=== PATIENT | male | born 1940 | race African-American/Black ===

== ENCOUNTER 2018-08-04 12:17 | Emergency (ER) | payer OTHER ==
[2018-08-04 13:11] VITALS: BP 131/64; PULSE 60; TEMP 98.9; BMI 33.9
--- NOTE | 2018-08-04 13:44 | PDOC ---
History of Present Illness - General Chief Complaint: Blood Pressure Problem Stated Complaint: BLOOD PRESSURE Time Seen by Provider: 08/04/18 13:21 History Source: Patient Exam Limitations: No Limitations (BP check) - History of Present Illness Associated Symptoms: denies: chest pain, cough, diaphoresis, fever/chills, headaches, loss of appetite, malaise, nausea/vomiting, rash, shortness of breath , syncope, weakness Past History - Travel Traveled outside of the country in the last 30 days: No Close contact w/someone who was outside of country & ill: No - Past Medical History Allergies/Adverse Reactions: Allergies Allergy/AdvReac Type Severity Reaction Status Date / Time No Known Allergies Allergy Verified 08/04/18 13:07 Home Medications: Ambulatory Orders Diltiazem HCl [Cartia Xt] 120 mg PO DAILY 04/26/12 Hydrochlorothiazide [Hctz] 25 mg PO DAILY 04/26/12 Rosuvastatin Calcium [Crestor] 20 mg PO DAILY 04/26/12 Cholecalciferol (Vitamin D3) [Vitamin D3] 1 cap PO DAILY 05/04/18 Metoprolol Succinate 1 tab PO DAILY 05/04/18 Silodosin [Rapaflo] 1 cap PO DAILY 05/04/18 metFORMIN HCL [Metformin HCl] 500 mg PO ASDIR 08/04/18 Anemia: No Asthma: No Cancer: No Cardiac Disorders: No CVA: No COPD: No CHF: No Dementia: No Diabetes: Yes GI Disorders: No Disorders: No HTN: Yes Hypercholesterolemia: Yes Liver Disease: No Seizures: No Thyroid Disease: No - Surgical History Abdominal Surgery: No Appendectomy: No Cardiac Surgery: No Cholecystectomy: No Lung Surgery: No Neurologic Surgery: No Orthopedic Surgery: Yes (LEFT CARPLE TUNNEL) - Suicide/Smoking/Psychosocial Hx Smoking History: Never smoked Have you smoked in the past 12 months: No 'Breaking Loose' booklet given: 04/26/07 Hx Alcohol Use: No Drug/Substance Use Hx: No Substance Use Type: Alcohol Hx Substance Use Treatment: No Review of Systems - Review of Systems Able to Perform ROS?: No Is the patient limited Amharic proficient: No Constitutional: No: Chills HEENTM: No: Blurred Vision, Ear Discharge, Nose Congestion, Hearing Loss, Throat Swelling, Dental Problems, Difficulty Swallowing, Mouth Swelling Respiratory: No: Orthopnea, Shortness of Breath, Wheezing, Productive cough Cardiac (ROS): No: Chest Pain, Edema, Irregular Heart Rate, Lightheadedness, Palpitations, Syncope ABD/GI: No: Abdominal Distended, Blood Streaked Bowels, Constipated, Diarrhea, Difficulty Swallowing Musculoskeletal: No: Back Pain, Joint Pain, Neck Pain Integumentary: No: Bruising, Dryness, Erythema Neurological: No: Headache, Numbness, Paresthesia Endocrine: No: Excessive Sweating, Flushing Hematologic/Lymphatic: No: Anemia, Blood Clots, Bleeding Diathesis *Physical Exam - Vital Signs Last Vital Signs Temp Pulse Resp BP Pulse Ox 98.9 F 60 20 131/64 99 08/04/18 13:07 08/04/18 13:07 08/04/18 13:07 08/04/18 13:07 08/04/18 13:07 - Physical Exam General Appearance: Yes: Nourished HEENT: positive: EOMI, BERNARD, Normal ENT Inspection, TMs Normal, Pharynx Normal Neck: positive: Supple Respiratory/Chest: positive: Lungs Clear, Normal Breath Sounds Cardiovascular: positive: Regular Rhythm, Regular Rate, S1, S2 Gastrointestinal/Abdominal: positive: Normal Bowel Sounds Musculoskeletal: positive: Normal Inspection Extremity: positive: Normal Capillary Refill Integumentary: positive: Normal Color Neurologic: positive: gauge checker II-XII NML intact, Fully Oriented, Alert Medical Decision Making - Medical Decision Making 08/04/18 13:39 78y/o M with h/o HTN presetns for elevated BP check, states he went to [facility] for BP check and BP was noted 161/88. He admits compliants with meds. He denies CP, SOB, WEST, dizziness, palpitation, LE edema. Pt admits to eating alot of fast foods because his is ill and is unable to cook Plan : BP ok in ED, non focal neuro exam vss stable in ED pt advised to refrain from fast food keep BP log and f/u with PCP if BP is high 08/04/18 17:48 *DC/Admit/Observation/Transfer Diagnosis at time of Disposition: Hypertension Qualifiers: Hypertension type: essential hypertension Qualified Code(s): I10 - Essential ( primary) hypertension - Discharge Dispostion Disposition: HOME Condition at time of disposition: Stable Decision to Admit order: No - Referrals Referrals: Giovanny Fletcher MD [Primary Care Provider] - 3 days (BP check) - Patient Instructions Printed Discharge Instructions: DI for High Blood Pressure, How to Monitor Your Blood Pressure at Home Additional Instructions: Stop eating fast food because it has high salt I discussed the physical exam findings, ancillary test results and final diagnoses with the patient. I answered all of the patient's questions. The patient was satisfied with the care received and felt comfortable with the discharge plan and treatment plan. The patient will call their primary care physician within 24 hours to arrange follow-up and will return to the Emergency Department with any new, persistant or worsening symptoms. - Post Discharge Activity
== END 2018-08-04 13:49 | disposition home or self-care (01) ==
LOC: JERFT 12:17 → JER 12:17 → JERFT 13:49
DX: I10 Essential (primary) hypertension (principal); E11.9 Type 2 diabetes mellitus without complications; Z79.84 Long term (current) use of oral hypoglycemic drugs; E78.00 Pure hypercholesterolemia, unspecified
CPT/HCPCS: 99281-25

== ENCOUNTER → 2019-07-18 | Day surgery (SDC) | payer OTHER, MEDICARE ==
--- NOTE | 2019-07-19 17:43 | PATH ---
Cytology Non-Gynecological Report Patient Name: JOEY LACY [facility]. Rec. #: [id number] /Age/Gender: 1940 (Age: 79) / M Account: [id number] Location: RADIOLOGY INTER Taken: 07/18/2019 Received: 07/18/2019 Reported: 07/19/2019 Physicians: Paulette Craven M.D. Specimen(s) Received THYROID RIGHT LOBE Clinical History Right thyroid nodule, 3.29 x 2.5 x 2.03 Final Diagnosis THYROID, RIGHT LOBE, FINE NEEDLE ASPIRATION: SATISFACTORY FOR EVALUATION. BETHESDA CLASS II: BENIGN. CYTOLOGIC FINDINGS ARE CONSISTENT WITH A BENIGN FOLLICULAR NODULE. SMALL FOLLICULAR CELLS IN HEMORRHAGIC BACKGROUND. Electronically Signed Beena Mohan M.D. Gross Description Received are eight direct smears, four of which are air-dried and Diff-Quik stained, and four of which are alcohol fixed and Pap stained. Also received is 20 ml of bloody formalin from which one cellblock is prepared.
== END | disposition home or self-care (01) ==
LOC: JRADIR 09:24
PROVIDERS: ATTEND Internal Medicine Endocrinology, Diabetes & Metabolism
PROC: 0G9H3ZX Drainage of Right Thyroid Gland Lobe, Percutaneous Approach, Diagnostic (ICD-10-PCS; principal; 2019-07-18)
DX: E04.1 Nontoxic single thyroid nodule (principal)
CPT/HCPCS: 76942; 88173; 88305-TC

== ENCOUNTER → 2019-07-29 | Day surgery (SDC) | payer OTHER, MEDICARE ==
--- NOTE | 2019-07-31 12:19 | PATH ---
Cytology Non-Gynecological Report Patient Name: JOEY LACY Med. Rec. #: [id number] /Age/Gender: 1940 (Age: 79) / M Account: [id number] Location: RADIOLOGY INTER Taken: 07/29/2019 Received: 07/29/2019 Reported: 07/31/2019 Physicians: Paulette Craven M.D. Specimen(s) Received LEFT THYROID FNA Clinical History Thyroid nodule Final Diagnosis THYROID, LEFT, FINE NEEDLE ASPIRATION: SATISFACTORY FOR EVALUATION BETHESDA CLASS II: BENIGN SMALL FOLLICULAR CELLS AND SOME COLLOID PRESENT, IN A BACKGROUND OF SMALL LYMPHOCYTES. Comment: The presence of lymphocytes raises the possibility of chronic lymphocytic thyroiditis. Suggest clinical correlation. Electronically Signed Nas Ramos M.D. Gross Description Received are eight direct smears, four of which are air-dried and Diff-Quik stained, and four of which are alcohol fixed and Pap stained. Also received is 20 ml of bloody formalin from which one cellblock is prepared.
== END ==
LOC: JRADIR 09:58
PROVIDERS: ATTEND Internal Medicine Endocrinology, Diabetes & Metabolism
DX: E04.1 Nontoxic single thyroid nodule (principal)
CPT/HCPCS: 76942; 88173; 88305-TC

== ENCOUNTER 2020-01-16 08:52 | Inpatient (IN) | payer OTHER, MEDICARE ==
--- NOTE | 2020-01-16 09:33 | PDOC ---
History of Present Illness - General Chief Complaint: Shortness of Breath Stated Complaint: HIGH BLOOD SUGAR Time Seen by Provider: 01/16/20 09:33 History Source: Patient Exam Limitations: No Limitations - History of Present Illness Initial Comments: 79-year-old female with past medical history of hypertension, hyperlipidemia, NIDDM, thyroid disorder presenting for chest pain occurring since 729 this morning he reported that he awoke feeling like a pressure on his chest that is constant and he took his blood sugar and it was 336 he reported that has never been higher than that so he came to the ED. Pt reported he had a left knee steroid injection x3 weeks ago, a left knee gel injection x1 week ago and x2 weeks ago. Pt reported he has taken too much of his medication on accident before, and does not know if he has now but says it is a possibility. ROS General: denied fever, chills, generalized weakness. HEENT: denied sore throat, rhinorrhea, ear pain. Cardiovascular: admitted to chest pain. denied palpitations, syncope, diaphoresis. Respiratory: denied shortness of breath, cough, sputum production, hemoptysis. Gastrointestinal: denied abdominal pain, nausea, vomiting, diarrhea, constipation, blood in stool. Genitourinary: denied dysuria, increased urinary frequency, hematuria, urinary incontinence, flank pain. Back: denied back pain. Musculoskeletal: denied joint pain, muscle pain, joint swelling. Neurological: denied headache, dizziness, numbness, tingling, weakness. Integumentary: denied rash, laceration, abrasion. Hematologic/Lymphatic: denied bruising or bleeding. PE Constitutional: Well-nourished, Well-developed, appearing stated age. HEENT: head is normocephalic, atraumatic. EOMI. PERRLA. Neck: supple. Full ROM. Cardiovascular: irregularly irregular heart rhythm. Normal S1 and S2. no murmurs. no pericardial friction rub. Respiratory: clear to auscultation bilaterally. no crackles, rhonchi or wheezing. no stridor. Gastrointestinal: soft, flat, nontender. normal bowel sounds. no rebound, guarding, or masses. Extremities: peripheral pulses intact and equal. no lower extremity edema noted. Neurological: CN 2-12 grossly intact. moves all four extremities. Psych: awake, alert, oriented x3. follows commands. answers questions appro priately. Past History - Past Medical History Allergies/Adverse Reactions: Allergies Allergy/AdvReac Type Severity Reaction Status Date / Time No Known Allergies Allergy Verified 08/04/18 13:07 Home Medications: Ambulatory Orders Diltiazem HCl [Cartia Xt] 120 mg PO DAILY 04/26/12 Hydrochlorothiazide [Hctz] 25 mg PO DAILY 04/26/12 Rosuvastatin Calcium [Crestor] 20 mg PO DAILY 04/26/12 Silodosin [Rapaflo] 1 cap PO DAILY 05/04/18 metFORMIN HCL [Metformin HCl] 2 tab PO DAILY 08/04/18 Aspirin 81 mg PO DAILY 01/16/20 Atenolol [Tenormin -] 50 mg PO DAILY 01/16/20 Diclofenac Sodium 2 mg PO PRN 01/16/20 - Immunization History Immunization Up to Date: No - Psycho Social/Smoking Cessation Hx Smoking History: Never smoked Have you smoked in the past 12 months: No Information on smoking cessation initiated: No 'Breaking Loose' booklet given: 04/26/07 Hx Alcohol Use: Yes Drug/Substance Use Hx: No Substance Use Type: Alcohol Hx Substance Use Treatment: No *Physical Exam - Vital Signs Last Vital Signs Temp Pulse Resp BP Pulse Ox 97.6 F 58 L 16 130/70 92 L 01/16/20 09:00 01/16/20 09:00 01/16/20 09:00 01/16/20 09:00 01/16/20 09:00 ED Treatment Course - LABORATORY CBC & Chemistry Diagram: 01/16/20 09:30 01/16/20 09:30 - RADIOLOGY Radiology Studies Ordered: Category Date Time Status CHEST X-RAY PORTABLE* [RAD] Stat Radiology 01/16/20 09:28 Ordered Medical Decision Making - Medical Decision Making 79 year old male with above PMH presented to ED for chest pressure and hyperglycemia. Initial Vital Signs Temp Pulse Resp BP Pulse Ox 97.6 F 58 L 16 130/70 92 L 01/16/20 09:00 01/16/20 09:00 01/16/20 09:00 01/16/20 09:00 01/16/20 09:00 Afebrile. Bradycardic. No tachypnea. Mild hypertension. No hypotension. Pt is 96% [place] [address]: rate 61, irregularly irregular rhythm, normal axis, normal intervals, no acute ST changes. Labs ordered: CBC, CMP, troponin, TSH, VBG, BNP, UA/UC Imaging ordered: CXR Medications ordered: normal saline bolus 1000 cc once, ASA 162 mg PO chew once CXR report: Kurt Leroy Name: JOEY LACY DEPARTMENT OF RADIOLOGY Phys: Maria E Caban RESIDENT : 1940 Age: 79 Sex: M [facility] Acct: [id number] Loc: [address] Exam Date: 01/16/20 Status: REG [place]Y [place] [id number] Unit Number: [id number] ACCESSION #: [id number] EXAM#: TYPE/EXAM: RESULT: [id number] RAD/CHEST X-RAY PORTABLE* Chest: Hyperglycemia. Chest pain Single view of the chest is submitted. There are clear lungs, normal mediastinum and sharp angles. The bones and soft tissues are intact. Acute process is not. 09/02/2019 there is no change of an adverse nature. Impression: No acute chest pathology Reported By: Raheel Cao MD 01/16/20 0942 01/16/20 10:40 01/16/20 10:56 Laboratory Last Values WBC 17.9 K/mm3 (4.0-10.0) H 01/16/20 09:30 RBC 5.91 M/mm3 (4.00-5.60) H 01/16/20 09:30 Hgb 16.1 GM/dL (11.7-16.9) 01/16/20 09:30 Hct 48.7 % (35.4-49) 01/16/20 09:30 MCV 82.4 fl (80-96) 01/16/20 09:30 MCH 27.3 pg (25.7-33.7) 01/16/20 09:30 MCHC 33.1 g/dl (32.0-35.9) 01/16/20 09:30 RDW 14.4 % (11.9-15.9) 01/16/20 09:30 Plt Count 325 K/MM3 (134-434) 01/16/20 09:30 MPV 8.6 fl (7.5-11.1) 01/16/20 09:30 Absolute Neuts (auto) 14.3 K/mm3 (1.5-8.0) H 01/16/20 09:30 Neutrophils % 79.9 % (42.8-82.8) 01/16/20 09:30 Lymphocytes % 11.6 % (8-40) 01/16/20 09:30 Monocytes % 6.3 % (3.8-10.2) 01/16/20 09:30 Eosinophils % 1.5 % (0-4.5) 01/16/20 09:30 Basophils % 0.7 % (0-2.0) 01/16/20 09:30 Nucleated RBC % 0 % (0-0) 01/16/20 09:30 PT with INR 11.90 SEC (9.7-13.0) 01/16/20 09:30 INR 1.01 (0.83-1.09) 01/16/20 09:30 PTT (Actin FS) 35.8 SECONDS (25.2-36.5) 01/16/20 09:30 VBG pH 7.50 (7.31-7.41) H 01/16/20 09:30 POC VBG pCO2 34.7 mmHg (38-52) L 01/16/20 09:30 POC VBG pO2 89.2 mmHg (28-48) H 01/16/20 09:30 VBG HCO3 26.6 mmol/L (23-29) 01/16/20 09:30 VBG O2 Sat (Frankie) 97.0 % (70-80) H 01/16/20 09:30 VBG Base Excess 4.1 meq/l (-2-2) H 01/16/20 09:30 Sodium 135 mmol/L (136-145) L 01/16/20 09:30 Potassium 4.6 mmol/L (3.5-5.1) 01/16/20 09:30 Chloride 100 mmol/L (98-107) 01/16/20 09:30 Carbon Dioxide 27 mmol/L (21-32) 01/16/20 09:30 Anion Gap 8 MMOL/L (8-16) 01/16/20 09:30 BUN 15.7 mg/dL (7-18) 01/16/20 09:30 Creatinine 1.0 mg/dL (0.55-1.3) 01/16/20 09:30 Est GFR (CKD-EPI)AfAm 83.77 01/16/20 09:30 Est GFR (CKD-EPI)NonAf 72.28 01/16/20 09:30 Random Glucose 181 mg/dL (74-106) H 01/16/20 09:30 Calcium 9.6 mg/dL (8.5-10.1) 01/16/20 09: Magnesium 2.2 mg/dL (1.8-2.4) 01/16/20: Total Bilirubin 0.7 mg/dL (0.2-1) 01/16/20:30 AST 27 U/L (15-37) 01/16/20:30 ALT 25 U/L (13-61) 01/16/20 Alkaline Phosphatase 60 U/L (45-117) 01/16/20:30 Troponin I < 0.02 ng/ml (0.00-0.05) 01/16/20: B-Natriuretic Peptide 60.2 pg/ml (5-450) 01/16/20: Total Protein 7.8 g/dl (6.4-8.2) 01/16/20: Albumin 4.0 g/dl (3.4-5.0) 01/16/20 09: TSH 1.10 uIU/ml (0.358-3.74) 01/16/20 09:30 Urine Color Yellow 01/16/20: Urine Appearance Clear 01/16/20: Urine pH 6.0 (5.0-8.0) 01/16/20: Ur Specific [place] 1.005 (1.010-1.035) L 01/16/20 09:30 Urine Protein Negative (NEGATIVE) 01/16/20 09:30 Urine Glucose (UA) Negative (NEGATIVE) 01/16/20: Urine Ketones Negative (NEGATIVE) 01/16/20: Urine Blood Negative (NEGATIVE) 01/16/20: Urine Nitrite Negative (NEGATIVE) 01/16/20:30 Urine Bilirubin Negative (NEGATIVE) 01/16/20: Urine Urobilinogen 0.2 mg/dL (0.2-1.0) 01/16/20: Ur Leukocyte Esterase Negative (NEGATIVE) 01/16/20 09:30 Leukocytosis No DKA No ketonuria TSH wnl Troponin undetectable 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 Spoke to Dr. Gann. Pt reported chest pressure relieved. Pt reported feeling lightheaded, HR 46. Medications ordered: calcium IV -Will reverse BB and CCB Bedside POCUS Echo performed by Dr. Bhandari, PGY3 EM Resident, showed no RV dilation, good contractility, no pericardial effusion, collapsable IVC with inspiration, no B-lines bilateral lung beltran. Discharge - Discharge Information Problems reviewed: Yes Clinical Impression/Diagnosis: Atrial fibrillation, Lightheadedness Condition: Stable - Admission Yes - Follow up/Referral - Patient Discharge Instructions - Post Discharge Activity
--- NOTE | 2020-01-16 09:40 | PDOC ---
Attending Attestation - Resident Resident Name: Maria E Caban - ED Attending Attestation I have performed the following: I have examined & evaluated the patient, The case was reviewed & discussed with the resident, I agree w/resident's findings & plan, Exceptions are as noted - HPI HPI: 01/16/20 09:39 79y M hx of niddm, hld, htn, ?thyroid disease (currently being monitored), presents with complaint of hyperglycemia and sob. Pt woke feeling a chest pressure this morning and some mild sob. he also checked his BGM and noticed it was elevated to 300s (normally in the 140s). The pt denies any paz, cp with exertion, leg swelling, calf pain, hemoptysis, fever/chills, nausea/vomiting, orthopnea, congestion, sore throat body aches. 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 Pt denies any smoking, recreational drug use. +social etoh use. - Physicial Exam PE: 01/16/20 09:51 My gENERAL: The patient is awake, alert, and fully oriented, Nontoxic - in no acute distress. HEAD: Normocephalic, atraumatic. EYES: extraocular movements intact, sclera anicteric, conjunctiva clear. ENT: Normal voice, Moist mucous membranes. NECK: Normal range of motion, supple LUNGS: Breath sounds equal, clear to auscultation bilaterally. No wheezes, no rhonchi, no rales. HEART: Bradycardic, irregular ABDOMEN: Soft, nontender, No guarding, no rebound. No CVA tenderness EXTREMITIES: Normal range of motion, no edema. No calf tenderness, negative Homans sign NEUROLOGICAL: No facial assymetry, Normal speech, PSYCH: Normal mood, normal affect. SKIN: Warm, Dry, normal turgor, - Medical Decision Making 01/16/20 09:52 Patient on arrival patient was noted to be slightly hypoxic however on my examination the patient was 97 to 99% on room air without any clinical signs of shortness of breath. He was noted to be bradycardic his EKG appears To show afib with rate control Differential For his shortness of breath/chest pain consider possible ACS, A. fib. origin of his afib consider metabolic derangements, thyroid disease, cardiac disaese. As the patient's blood sugar is elevated will rule out DKA. We will place the patient on nuclear monitoring technician, the patient is hemodynamically stable at this time, Will obtain blood work, chest x-ray Anticipate admission for further management of his atrial fibrillation Heart Score/ECG Review - ECG Impressions Comment:: 01/16/20 09:54 Twelve-lead EKG was performed and reviewed by me. Irregularly irregular, rate of [address] wave changes suggestive of acute ischemia Impression atrial fibrillation
[2020-01-16] MEDS ORDERED: ASPIRIN 81 MG CHEWABLE TABLETS PO ONE ×2 (09:43→09:47)
[2020-01-16] MEDS ORDERED: ASPIRIN 81 MG CHEWABLE TABLETS ONE (09:59)
[2020-01-16 10:07] LABS: BASO % 0.7 % (0-2.0); EOS % 1.5 % (0-4.5); HEMATOCRIT 48.7 % (35.4-49); HEMOGLOBIN 16.1 GM/dL (11.7-16.9); LYMPH % 11.6 % (8-40); MCH 27.3 pg (25.7-33.7); MCHC 33.1 g/dl (32.0-35.9); MEAN CELL VOLUME 82.4 fl (80-96); MEAN PLT VOLUME 8.6 fl (7.5-11.1); MONO % 6.3 % (3.8-10.2); NEUT % 79.9 % (42.8-82.8); PLATELET COUNT 325 K/MM3 (134-434); RBC 5.91 M/mm3 (4.00-5.60); RDW 14.4 % (11.9-15.9); WHITE BLOOD COUNT 17.9 K/mm3 (4.0-10.0)
[2020-01-16 10:09] LABS: URINE APPEARANCE CLEAR; URINE BILIRUBIN NEGATIVE (NEGATIVE); URINE COLOR YELLOW; URINE GLUCOSE (UA) NEGATIVE (NEGATIVE); URINE KETONE NEGATIVE (NEGATIVE); URINE LEUK ESTERASE NEGATIVE (NEGATIVE); URINE NITRITE NEGATIVE (NEGATIVE); URINE PROTEIN NEGATIVE (NEGATIVE); URINE UROBILINOGEN 0.2 mg/dL (0.2-1.0); VENOUS PC02 34.7 mmHg (38-52); VENOUS PH 7.5 (7.31-7.41); VENOUS PO2 89.2 mmHg (28-48)
[2020-01-16 10:21] LABS: INR 1.01 (0.83-1.09); PROTHROMBIN TIME (PATIENT) 11.9 SEC (9.7-13.0)
[2020-01-16 10:23] LABS: ACTIVATED PTT 35.8 SECONDS (25.2-36.5)
[2020-01-16] MEDS ORDERED: SODIUM CHLORIDE 1,000 ML IV STA (10:36)
[2020-01-16 10:53] LABS: ALK PHOS 60 U/L (45-117); ANION GAP 8 MMOL/L (8-16); BILIRUBIN,TOTAL 0.7 mg/dL (0.2-1); BLOOD UREA NITROGEN 15.7 mg/dL (7-18); CALCIUM 9.6 mg/dL (8.5-10.1); CHLORIDE 100 mmol/L (98-107); CO2 27 mmol/L (21-32); GLUCOSE,RANDOM 181 mg/dL (74-106); MAGNESIUM 2.2 mg/dL (1.8-2.4); N-TERMINAL BNP 60.2 pg/ml (5-450); POTASSIUM 4.6 mmol/L (3.5-5.1); SGOT/AST 27 U/L (15-37); SGPT/ALT 25 U/L (13-61); SODIUM 135 mmol/L (136-145); TOT PROT 7.8 g/dl (6.4-8.2)
[2020-01-16] MEDS ORDERED: CALCIUM GLUCONATE 10% - 1,000 MG/10 ML VIAL IVPUSH ONE (11:01)
[2020-01-16] MEDS ORDERED: CALCIUM GLUCONATE 10% - 1,000 MG/10 ML VIAL ONE (11:09)
[2020-01-16] MEDS ORDERED: GLUCAGON 1 MG KIT IVPUSH ONE (12:19)
[2020-01-16] MEDS ORDERED: GlUCAGON HUMAN RECOMBINANT 1 MG/VIAL ONE (12:39)
--- NOTE | 2020-01-16 13:03 | HP ---
CHIEF COMPLAINT: chest pressure PCP:Dr. Fletcher Movie Producer: Dr. Rivera Submersible Pilot: Dr. Kennedy HISTORY OF PRESENT ILLNESS: Patient is a 79 year old male with past medical history of HTN, HLD, DM and chronic lymphocytic thyroiditis, presented to the ED due to sensation of chest pressure/throat tightening and palpitations that started last night. Patient reported after eating dinner yesterday, patient started experiencing pressure on his upper chest and throat tightening accompanied by sensation of heart racing and difficulty catching his breath because of the throat tightening. Patient reported it lasted for a while and was able to go to sleep. On waking up today, patient still noted the same symptoms and came to the ED for further evaluation. Patient denies any recent illness, denies fever, chills, headache, dizziness, nausea, vomiting, abdominal pain, diarrhea, urinary symptoms. Of note, patient reported he has been on the same medications for a few years with no recent changes. He had previous episodes of taking his medications twice, but has been placing his pills on a pillbox. Today, patient may have doubled his dose of Metformin, but denies doubling the dose of other meds. He saw his tube splicer last year and a stress test was done which was reportedly normal. He was also evaluated by taker off hemp fiber for a thyroid nodule, with biopsy done last year revealing chronic lymphocytic thyroiditis. ER course was notable for: (1)HR - 30s-40s, IV calcium gluconate given (2)EKG - afib, rate 61 (3)WBC 17.9 Recent Travel:denies PAST MEDICAL HISTORY: Hypertension HLD DM Chronic lymphocytic thyroiditis PAST SURGICAL HISTORY: Carpal tunnel surgery Social History: Smoking:denies Alcohol:drinks 2-3 glasses of beer daily Drugs: denies last month. Lives alone at home. Family History Brother - DM Allergies No Known Allergies Allergy (Verified 08/04/18 13:07) HOME MEDICATIONS: Home Medications Medication Instructions Recorded Diltiazem HCl [Cartia Xt] 120 mg PO DAILY 04/26/12 Hydrochlorothiazide [Hctz] 25 mg PO DAILY 04/26/12 Rosuvastatin Calcium [Crestor] 20 mg PO DAILY 04/26/12 Silodosin [Rapaflo] 1 cap PO DAILY 05/04/18 metFORMIN HCL [Metformin HCl] 2 tab PO DAILY 09/22/18 Atenolol [Tenormin -] 50 mg PO DAILY 01/16/20 Diclofenac Sodium 2 mg PO PRN 01/16/20 REVIEW OF SYSTEMS CONSTITUTIONAL: Absent: fever, chills, diaphoresis, generalized weakness, malaise, loss of appetite, weight change HEENT: Absent: rhinorrhea, nasal congestion, throat pain, throat swelling, difficulty swallowing, mouth swelling, ear pain, eye pain, visual changes CARDIOVASCULAR: chest pain Absent: syncope, palpitations, irregular heart rate, lightheadedness, peripheral edema RESPIRATORY: Absent: cough, shortness of breath, dyspnea with exertion, orthopnea, wheezing, stridor, hemoptysis GASTROINTESTINAL: Absent: abdominal pain, abdominal distension, nausea, vomiting, diarrhea, constipation, melena, hematochezia GENITOURINARY: Absent: dysuria, frequency, urgency, hesitancy, hematuria, flank pain, genital pain MUSCULOSKELETAL: Absent: myalgia, arthralgia, joint swelling, back pain, neck pain SKIN: Absent: rash, itching, pallor HEMATOLOGIC/IMMUNOLOGIC: Absent: easy bleeding, easy bruising, lymphadenopathy, frequent infections ENDOCRINE: Absent: unexplained weight gain, unexplained weight loss, heat intolerance, cold intolerance NEUROLOGIC: Absent: headache, focal weakness or paresthesias, dizziness, unsteady gait, seizure, mental status changes, bladder or bowel incontinence PSYCHIATRIC: Absent: anxiety, depression, suicidal or homicidal ideation, hallucinations. PHYSICAL EXAMINATION Vital Signs - 24 hr 01/16/20 01/16/20 01/16/20 09:00 09:53 10:16 Temperature 97.6 F Pulse Rate 58 L Pulse Rate [ 40 L Apical] Respiratory 16 18 Rate Blood Pressure 130/70 Blood Pressure 127/106 H [Left Arm] O2 Sat by Pulse 92 L 100 98 Oximetry (%) 01/16/20 01/16/20 01/16/20 11:43 11:49 12:59 Temperature 97.5 F L Pulse Rate Pulse Rate [ 40 L 41 L 46 L Apical] Respiratory 13 18 18 Rate Blood Pressure Blood Pressure 115/64 115/64 118/60 [Left Arm] O2 Sat by Pulse 99 97 98 Oximetry (%) GENERAL: Awake, alert, and fully oriented, in no acute distress. HEAD: Normal with no signs of trauma. EYES: PERRLA, EOMI, sclera anicteric, conjunctiva clear. EARS, NOSE, THROAT: Moist mucous membranes. No lesions in the oropharynx. NECK: Normal range of motion, supple. without LAD, thyroid enlarged LUNGS: Breath sounds equal, clear to auscultation bilaterally. HEART: Irregularly irregular, bradycardic, normal S1 and S2 ABDOMEN: Soft, nontender, not distended, normoactive bowel sounds, no guarding. MUSCULOSKELETAL: Normal range of motion at all joints. UPPER EXTREMITIES: 2+ pulses, warm, well-perfused. LOWER EXTREMITIES: 2+ pulses, warm, well-perfused. No calf tenderness. No peripheral edema. NEUROLOGICAL: Cranial nerves II-XII grossly intact. Normal speech. PSYCHIATRIC: Cooperative. Good eye contact. Appropriate mood and affect. SKIN: Warm, dry, normal turgor. Laboratory Results - last 24 hr 01/16/20 01/16/20 01/16/20 09:30 09:30 09:30 WBC 17.9 H RBC 5.91 H Hgb 16.1 Hct 48.7 MCV 82.4 MCH 27.3 MCHC 33.1 RDW 14.4 Plt Count 325 MPV 8.6 Absolute Neuts (auto) 14.3 H Neutrophils % 79.9 Lymphocytes % 11.6 Monocytes % 6.3 Eosinophils % 1.5 Basophils % 0.7 Nucleated RBC % 0 PT with INR 11.90 INR 1.01 PTT (Actin FS) 35.8 VBG pH POC VBG pCO2 POC VBG pO2 VBG HCO3 VBG O2 Sat (Frankie) VBG Base Excess Sodium 135 L Potassium 4.6 Chloride 100 Carbon Dioxide 27 Anion Gap 8 BUN 15.7 Creatinine 1.0 Est GFR (CKD-EPI)AfAm 83.77 Est GFR (CKD-EPI)NonAf 72.28 Random Glucose 181 H Calcium 9.6 Magnesium 2.2 Total Bilirubin 0.7 AST 27 ALT 25 Alkaline Phosphatase 60 Troponin I < 0.02 B-Natriuretic Peptide 60.2 Total Protein 7.8 Albumin 4.0 TSH 1.10 Urine Color Urine Appearance Urine pH Ur Specific [place] Urine Protein Urine Glucose (UA) Urine Ketones Urine Blood Urine Nitrite Urine Bilirubin Urine Urobilinogen Ur Leukocyte Esterase 01/16/20 01/16/20 09:30 09:30 WBC RBC Hgb Hct MCV MCH MCHC RDW Plt Count MPV Absolute Neuts (auto) Neutrophils % Lymphocytes % Monocytes % Eosinophils % Basophils % Nucleated RBC % PT with INR INR PTT (Actin FS) VBG pH 7.50 H POC VBG pCO2 34.7 L POC VBG pO2 89.2 H VBG HCO3 26.6 VBG O2 Sat (Frankie) 97.0 H VBG Base Excess 4.1 H Sodium Potassium Chloride Carbon Dioxide Anion Gap BUN Creatinine Est GFR (CKD-EPI)AfAm Est GFR (CKD-EPI)NonAf Random Glucose Calcium Magnesium Total Bilirubin AST ALT Alkaline Phosphatase Troponin I B-Natriuretic Peptide Total Protein Albumin TSH Urine Color Yellow Urine Appearance Clear Urine pH 6.0 Ur Specific [place] 1.005 L Urine Protein Negative Urine Glucose (UA) Negative Urine Ketones Negative Urine Blood Negative Urine Nitrite Negative Urine Bilirubin Negative Urine Urobilinogen 0.2 Ur Leukocyte Esterase Negative ASSESSMENT/PLAN: Patient is a 79 year old male with past medical history of HTN, HLD, DM and chronic lymphocytic thyroiditis, presented to the ED due to sensation of chest pressure/throat tightening and palpitations that started last night. #Bradycardia -likely from Atenolol and Diltiazem use -hold both for now -IV Calcium gluconate given at the ED -will give IV Glucagon 3mg x1 to reverse beta fredrick -Echo -Tele monitoring -Cardiology (Dr. Rivera) consulted. Recommendations appreciated. -Currently HR 30s-40s -May give atropine if Hr <30 #Newly diagnosed Atrial Fibrillation -Currently bradycardic, will hold BB/CCB for rate control -CHADSVASc 4 -Patient agreeable to starting Eliquis 5mg bid #Leukocytosis -unclear etiology at this time -No signs of infection, UA and CXR unremarkable -will monitor off antibiotics for now #EtOH use -CIWA 0 -will continue to monitor at this time #HTN -BP stable. -may continue HCTZ -hold Atenolol and Diltiazem -May benefit from ACEI or ARB with hx of DM #HLD -Continue Crestor 20mg daily #DM -Hold home Metformin -Insulin sliding scale implemented -BGM ACHs #FEN -Not on any standing fluids -Electrolytes wnl, routine bmp monitoring -Sodium restricted/diabetic diet #Prophylaxis -Eliquis 5mg bid #Disposition -full code -admit to tele Visit type - Emergency Visit Emergency Visit: Yes ED Registration Date: 01/16/20 Care time: The patient presented to the Emergency Department on the above date and was hospitalized for further evaluation of their emergent condition. - New Patient This patient is new to me today: Yes Date on this admission: 01/16/20 - Critical Care Critical Care patient: No ATTENDING PHYSICIAN STATEMENT I saw and evaluated the patient. I reviewed the resident's note and discussed the case with the resident. I agree with the resident's findings and plan as documented. SUBJECTIVE: OBJECTIVE: ASSESSMENT AND PLAN:
--- NOTE | 2020-01-16 13:07 | PN ---
Teaching Attending Note Name of Resident: Marisol Jennings ATTENDING PHYSICIAN STATEMENT I saw and evaluated the patient. I reviewed the resident's note and discussed the case with the resident. I agree with the resident's findings and plan as documented. SUBJECTIVE: CC: palpitations and pressure in neck HPI: Mr. Preston is a pleasant 79 y/o gentleman with h/o HTN, DM, lymphocytic thyroiditis, and HLP who presented with palpitations and a feeling of neck pressure. He reports palpitations for few days, and last night he felt pressure and his heart beat in his neck. He denies those sx before. He denies fever/chills/diarrhea/dysuria/SOB/abd pain/WEST. He reported brief episodes of light headedness. no CP . he denies any h/o A fib or arrhythmias. last saw Dr. Rivera for CP last year and he had a stress test done. No echo per patient. In ER, he was found to have bradycardia with irregular rhythm. OBJECTIVE: NAD, awake, alert, pleasant, and cooperative . oropharynx with erythema but no sxudate CV: irreh irreg , distant heart sounds. no MRG Lungs: CTAB Abd: obese, soft, NT, ND, NL BS. Ext : No edema or ertyhema on upper or lower extremities. no fugal infection among toes NEuro: EOMI, round equal pupils, reactive to light. No facial droop. strength 5/5 in upper and lower extremities proximally and distally. Imaging: Cxray reviewed EKG : a fib, HR 61. ASSESSMENT AND PLAN: Mr. Preston is a pleasant 79 y/o gentleman with h/o HTN, DM, lymphocytic thyroiditis, and HLP who presented with palpitations and a feeling of neck pressure. he was found to have A fib with bradycardia 1- New onset A fib: bradycardic now. Nl TSH. No murmurs on exam. Nl trop x [address] changes on EKG - due to bradycardia will monitor off any AV abraham bockers - order Echo to evaluate valves - CHAD2S VASC of 4 --> 4.8 % yearly risk of stroke. The risk was discussed withpatietn, AC was offered. His options of Lovenox, NOACs, and coumadin were discussed with him. risk of bleeding with AC was discussed. patient chose Eliquis and he was made aware of the risk of spinal bleed reported with Eliquis use. - start eliquis 5 mg BID - will call his pharmacy and confirm insurance coverage - hold home ASA ( takes for primary prophylaxis , no stents ) 2- Bradycardia: probably due to the use of 2 AV abraham blockers, cardizem and atenolol. - received Ca gluconate in ER - HR in 35 bpm now, gave glucoagon to reverse BB effect - hold cardizema and atenolol - monitor . if bradycardia with sx then can gove atropine - card consult pending 3- H/o HTN: - cont HCTZ. - hold cardizem and atenolol - monitor . can add other agents if needed 4- leukocytosis : no signs of infection ( no dysuria, diarreha, cough, fever , clear cxray) . - monitor off Abx 5- H/o DM : - hold metfrmin - start SSI Monitor on tele
[2020-01-16] MEDS ORDERED: APIXABAN 5 MG TABLET ONE (13:49)
[2020-01-16] MEDS: APIXABAN 5 MG TABLET PO SCH ×2 (13:55→21:39)
--- NOTE | 2020-01-16 15:45 | CON.CARD ---
Consult Consult Specialty:: Cardiology Referred by:: Medicine Reason for Consultation:: afib, bradycardia - History of Present Illness Chief Complaint: fatigue, dizzy History of Present Illness: 79M h/o HTN, DM, HLD p/w palps, fatigue, feeling unsteady. Also endorsed pressure in neck. Has felt off last couple of days, thought it was 2/2 high blood sugar, eating a lot of carbs and has had readings >300. Sees me for cardio, last evaluated 05/2019 with unremarkable stress test. No chest pain, dyspnea, orthopnea, edema - Alcohol/Substance Use Hx Alcohol Use: Yes - Smoking History Smoking history: Never smoked Have you smoked in the past 12 months: No Home Medications - Allergies Allergies/Adverse Reactions: Allergies Allergy/AdvReac Type Severity Reaction Status Date / Time No Known Allergies Allergy Verified 08/04/18 13:07 - Home Medications Home Medications: Ambulatory Orders Diltiazem HCl [Cartia Xt] 120 mg PO DAILY 04/26/12 Hydrochlorothiazide [Hctz] 25 mg PO DAILY 04/26/12 Rosuvastatin Calcium [Crestor] 20 mg PO DAILY 04/26/12 Silodosin [Rapaflo] 1 cap PO DAILY 05/04/18 metFORMIN HCL [Metformin HCl] 2 tab PO DAILY 08/04/18 Aspirin 81 mg PO DAILY 01/16/20 Atenolol [Tenormin -] 50 mg PO DAILY 01/16/20 Diclofenac Sodium 2 mg PO PRN 01/16/20 Family Medical History Family History: Unremarkable Review of Systems - Review of Systems Constitutional: reports: No Symptoms Eyes: reports: No Symptoms HENT: reports: No Symptoms Neck: reports: No Symptoms Cardiovascular: reports: No Symptoms Respiratory: reports: No Symptoms Gastrointestinal: reports: No Symptoms Genitourinary: reports: No Symptoms Musculoskeletal: reports: No Symptoms Integumentary: reports: No Symptoms Neurological: reports: No Symptoms Endocrine: reports: No Symptoms Hematology/Lymphatic: reports: No Symptoms Psychiatric: reports: No Symptoms Vital Signs: Vital Signs Temperature 97.5 F L 01/16/20 11:43 Pulse Rate 46 L 01/16/20 12:59 Respiratory Rate 18 01/16/20 12:59 Blood Pressure 118/60 01/16/20 12:59 O2 Sat by Pulse Oximetry (%) 98 01/16/20 12:59 Constitutional: Yes: Well Nourished, No Distress, Calm Eyes: Yes: Conjunctiva Clear, EOM Intact HENT: Yes: Atraumatic, Normocephalic Neck: Yes: Supple, Trachea Midline Respiratory: Yes: Regular, CTA Bilaterally Gastrointestinal: Yes: Normal Bowel Sounds Cardiovascular: Yes: Bradycardia Heart Sounds: Yes: S1, S2 Extremities: No: Cold Edema: No Neurological: Yes: Alert, Oriented Psychiatric: No: Agitated - Other Data Labs, Other Data: CBC, BMP 01/16/20 09:30 01/16/20 09:30 INR, PTT INR 1.01 (0.83-1.09) 01/16/20 09:30 Troponin, BNP 01/16/20 09:30 Troponin I < 0.02 B-Natriuretic Peptide 60.2 Troponin, BNP 01/16/20 09:30 Troponin I < 0.02 B-Natriuretic Peptide 60.2 Assessment/Plan EKG afib, rate 61 bpm, no ischemic changes CXR: no acute process tele: afib rates 30s-40s afib, bradycardia - slow rate, likely contributing to fatigue, dizziness - received glucagon in ER - agree with holding home diltiazem and atenolol - echo pending - monitoring on tele - eliquis 5 mg BID - agree with stopping home aspirin HTN - cont HCTZ, holding abraham blocking agents as above DM - not controlled - manage per primary HLD - cont statin
--- NOTE | 2020-01-16 15:52 | ECHO ---
Name: JOEY LACY Exam:Adult Echocardiogram Study Date: 01/16/2020 02:16 PM Age: 79 yrs Reason For Study: afib, bradycardia Height: 71 in Weight: 250 lb BSA: 2.3 m2 MMode/2D Measurements & Calculations IVSd: 1.0 cm Ao root diam: 3.0 cm LVIDd: 4.2 cm LA dimension: 4.0 cm LVIDs: 3.1 cm LVPWd: 1.5 cm LVPWs: 1.9 cm EDV(Teich): 76.7 ml ESV(Teich): 36.7 ml LVOT diam: 2.1 cm LVLd ap4: 8.4 cm EDV(MOD-sp4): 163.0 ml LVLs ap4: 7.2 cm ESV(MOD-sp4): 69.4 ml SV(MOD-sp4): 93.6 ml LAV (MOD-bp): 63.2 ml Doppler Measurements & Calculations Ao V2 max: 155.3 cm/sec LV V1 max P.7 mmHg Ao max P.7 mmHg LV V1 max: 129.0 cm/sec BRYAN(V,D): 2.9 cm2 TR max raf: 220.4 cm/sec PA V2 max: 116.6 cm/sec TR max P.4 mmHg PA max P.7 mmHg Procedure A complete two-dimensional transthoracic echocardiogram was performed (2D, M-mode, Doppler and color flow Doppler). The patient was in atrial fibrillation with controlled ventricular rate during the exam. Left Ventricle The left ventricular size, thickness and function are normal. The left ventricular ejection fraction is normal. Ejection Fraction = 65-70%. The left ventricular wall motion is normal. Right Ventricle The right ventricle is normal in size and function. Atria Normal left and right atrial size and function. Mitral Valve There is no mitral regurgitation noted. Tricuspid Valve There is trace tricuspid regurgitation. Right ventricular systolic pressure is normal. Aortic Valve No hemodynamically significant valvular aortic stenosis. No aortic regurgitation is present. Pulmonic Valve There is no pulmonic valvular regurgitation. Great Vessels The aortic root is normal size. Pericardium/Pleura There is no pericardial effusion. Interpretation Summary The patient was in atrial fibrillation during the exam. The left ventricular size, thickness and function are normal The right ventricle is normal in size and function. There is trace tricuspid regurgitation. MD John Rivera 01/16/2020 03:51 PM
--- NOTE | 2020-01-16 16:04 | EKG ---
Test Reason : Blood Pressure : / mmHG Vent. Rate : 061 BPM Atrial Rate : 300 BPM P-R Int : 000 ms QRS Dur : 096 ms QT Int : 388 ms P-R-T Axes : 000 -27 031 degrees QTc Int : 390 ms ATRIAL FIBRILLATION ANTERIOR INFARCT , AGE UNDETERMINED ABNORMAL ECG NO PREVIOUS ECGS AVAILABLE Confirmed by DAVION TENA MD ([id number]) on 01/16/2020 4:04:25 PM Referred By: Confirmed By:DAVION TENA MD
[2020-01-16] MEDS: INSULIN SLIDING SCALE (NOVOLOG) 1 VIAL SQ SCH ×2 (18:03→22:17)
[2020-01-16 18:30] VITALS: BMI 34.2
[2020-01-16] MEDS: ROSUVASTATIN CA 20 MG TABLET (FP) PO SCH (21:39)
[2020-01-17] MEDS: INSULIN SLIDING SCALE (NOVOLOG) 1 VIAL SQ SCH ×4 (06:35→21:47)
[2020-01-17 07:46] LABS: BASO % 0.5 % (0-2.0); EOS % 1.3 % (0-4.5); HEMATOCRIT 42.7 % (35.4-49); HEMOGLOBIN 14.5 GM/dL (11.7-16.9); LYMPH % 16.3 % (8-40); MCH 27.7 pg (25.7-33.7); MCHC 33.8 g/dl (32.0-35.9); MEAN CELL VOLUME 81.9 fl (80-96); MEAN PLT VOLUME 8.3 fl (7.5-11.1); MONO % 6.7 % (3.8-10.2); NEUT % 75.2 % (42.8-82.8); PLATELET COUNT 254 K/MM3 (134-434); RBC 5.22 M/mm3 (4.00-5.60); RDW 14.6 % (11.9-15.9); WHITE BLOOD COUNT 14.4 K/mm3 (4.0-10.0)
[2020-01-17 08:29] LABS: ALBUMIN 3.6 g/dl (3.4-5.0); BLOOD UREA NITROGEN 18.9 mg/dL (7-18); CALCIUM 9.1 mg/dL (8.5-10.1); MAGNESIUM 1.8 mg/dL (1.8-2.4); PHOSPHOROUS 4.1 mg/dL (2.5-4.9); POTASSIUM 3.8 mmol/L (3.5-5.1); TOT PROT 6.9 g/dl (6.4-8.2)
[2020-01-17] MEDS: HYDROCHLOROTHIAZIDE 25 MG TABLET (FP) PO SCH ×2 (09:34→10:29)
[2020-01-17] MEDS: TAMSULOSIN HCL 0.4 MG CAP PO SCH (09:34)
[2020-01-17] MEDS: APIXABAN 5 MG TABLET PO SCH ×2 (09:34→21:37)
--- NOTE | 2020-01-17 09:48 | PN ---
Progress Note, Physician Chief Complaint: No CP, SOB, dizziness TELE: Sinus nilam History of Present Illness: HR 50s - Current Medication List Current Medications: Active Medications Apixaban (Eliquis -) 5 mg PO BID [facility] Last Admin: 01/17/20 09:34 Dose: 5 mg Documented by: Hydrochlorothiazide (Hctz -) 25 mg PO DAILY [facility] Insulin Aspart (Novolog Vial Sliding Scale -) 1 vial SQ ACHS [facility]; Protocol Last Admin: 01/17/20 06:35 Dose: Not Given Documented by: Rosuvastatin Calcium (Crestor -) 20 mg PO HS [facility] Last Admin: 01/16/20 21:39 Dose: 20 mg Documented by: Tamsulosin HCl (Flomax -) 0.4 mg PO 0830 [facility] Last Admin: 01/17/20 09:34 Dose: 0.4 mg Documented by: - Objective Vital Signs: Vital Signs Temperature 98.1 F 01/17/20 09:39 Pulse Rate 59 L 01/17/20 09:39 Respiratory Rate 20 01/17/20 09:39 Blood Pressure 142/70 01/17/20 09:39 O2 Sat by Pulse Oximetry (%) 93 L 01/16/20 21:00 Constitutional: Yes: No Distress, Calm Cardiovascular: Yes: Pulse Irregular Respiratory: Yes: CTA Bilaterally Gastrointestinal: Yes: Soft Edema: No Neurological: Yes: Alert, Oriented Labs: CBC, BMP 01/17/20 06:04 01/17/20 06:04 INR, PTT INR 1.01 (0.83-1.09) 01/16/20 09:30 Assessment/Plan ssessment/Plan EKG afib, rate 61 bpm, no ischemic changes CXR: no acute process tele: afib rates 30s-40s afib, bradycardia: - slow rates improving, feels well this AM - received glucagon in ER - continue holding home diltiazem and atenolol, may need to reintroduce at least one agent at lower dose pending heart rate trend -Cont tele - echo normal - eliquis 5 mg BID - agree with stopping home aspirin HTN: - cont HCTZ, holding abraham blocking agents as above DM: - not controlled - manage per primary HLD: - cont statin
--- NOTE | 2020-01-17 14:23 | PN ---
Physical Exam: SUBJECTIVE: Patient seen and examined at bedside. pt states that he does not have chest pain or palpitations and that he feels much better OBJECTIVE: Vital Signs Period Temp Pulse Resp BP Sys/Crawford Pulse Ox Last 24 Hr 97.6 F-98.1 F 42-59 18-20 115-142/45-97 93-98 GENERAL: The patient is awake, alert, and fully oriented, in no acute distress. HEAD: Normal with no signs of trauma. LUNGS: Breath sounds equal, clear to auscultation bilaterally, no crackles, no accessory muscle use. HEART: Regular rate and rhythm, S1, S2 without murmur ABDOMEN: Soft, nontender, nondistended, normoactive bowel sounds, no guarding EXTREMITIES: 2+ pulses, warm, well-perfused, no edema. NEUROLOGICAL: Cranial nerves II through XII grossly intact. Normal speech, gait normal SKIN: Warm, dry, normal turgor, no rashes or lesions noted Laboratory Results - last 24 hr 01/17/20 01/17/20 01/17/20 06:04 06:04 12:14 WBC 14.4 H RBC 5.22 Hgb 14.5 Hct 42.7 MCV 81.9 MCH 27.7 MCHC 33.8 RDW 14.6 Plt Count 254 D MPV 8.3 Absolute Neuts (auto) 10.8 H Neutrophils % 75.2 Lymphocytes % 16.3 D Monocytes % 6.7 Eosinophils % 1.3 Basophils % 0.5 Nucleated RBC % 0 Sodium 141 Potassium 3.8 Chloride 102 Carbon Dioxide 32 Anion Gap 7 L BUN 18.9 H Creatinine 1.0 Est GFR (CKD-EPI)AfAm 83.77 Est GFR (CKD-EPI)NonAf 72.28 POC Glucometer 129 Random Glucose 121 H Calcium 9.1 Phosphorus 4.1 Magnesium 1.8 Total Bilirubin 1.0 AST 10 L ALT 20 Alkaline Phosphatase 52 Total Protein 6.9 Albumin 3.6 Current Medications Apixaban (Eliquis -) 5 mg PO BID [facility] Last Admin: 01/17/20 09:34 Dose: 5 mg Documented by: Hydrochlorothiazide (Hctz -) 25 mg PO DAILY [facility] Last Admin: 01/17/20 10:29 Dose: 25 mg Documented by: Insulin Aspart (Novolog Vial Sliding Scale -) [address] [facility]; Protocol Last Admin: 01/17/20 12:15 Dose: Not Given Documented by: Rosuvastatin Calcium (Crestor -) 20 mg PO HS [facility] Last Admin: 01/16/20 21:39 Dose: 20 mg Documented by: Tamsulosin HCl (Flomax -) 0.4 mg PO 0830 [facility] Last Admin: 01/17/20 09:34 Dose: 0.4 mg Documented by: ASSESSMENT/PLAN: 79 yo M with PMH of HTN, HLD, DM and chronic lymphocytic thyroiditis, presented to the ED due to sensation of chest pressure/throat tightening and palpitations. Pt is admitted for New onset Afib Bradycardia -likely from Atenolol and Diltiazem use -hold both for now -IV Calcium gluconate given at the ED -Echo nomal -continue Tele monitoring -Cardiology (Dr. Rivera) consulted. -on admission HR 30s-40s, currently improved in 60s -May give atropine if Hr <30 Atrial Fibrillation - will hold BB/CCB for rate control, will reconsider tomorrow -CHADSVASc 4 -c/w Eliquis 5mg bid Leukocytosis -improving -No signs of infection, UA and CXR unremarkable -will monitor off antibiotics HTN -BP stable. -may continue HCTZ -hold Atenolol and Diltiazem HLD -Continue Crestor 20mg daily DM -Hold home Metformin -Insulin sliding scale, BGM ACHs Prophylaxis: Eliquis 5mg bid Disposition -full code -cont tele, possible DC tomorrow Visit type - Emergency Visit Emergency Visit: No - New Patient This patient is new to me today: No - Critical Care Critical Care patient: No - Discharge Referral Referred to [facility] No ATTENDING PHYSICIAN STATEMENT I saw and evaluated the patient. I reviewed the resident's note and discussed the case with the resident. I agree with the resident's findings and plan as documented. SUBJECTIVE: OBJECTIVE: ASSESSMENT AND PLAN:
--- NOTE | 2020-01-17 18:33 | PN ---
Teaching Attending Note Name of Resident: Sarah Rivera ATTENDING PHYSICIAN STATEMENT I saw and evaluated the patient. I reviewed the resident's note and discussed the case with the resident. I agree with the resident's findings and plan as documented. SUBJECTIVE: No fever or chills. No N/V . No palpitations . no pressure in neck . No SOB . he feels much better OBJECTIVE: NAD, awake, alert, pleasant, and cooperative . CV: irreh irreg , 2/6 SM at base Lungs: CTAB Ext : No edema or ertyhema on upper or lower extremities. ASSESSMENT AND PLAN: Mr. Preston is a pleasant 79 y/o gentleman with h/o HTN, DM, lymphocytic thyroiditis, and HLP who presented with palpitations and a feeling of neck pressure. he was found to have A fib with bradycardia 1- New onset A fib: rate is still slow - echo reviewed. - Cont Eliquis . - will call pharmacy to confirm insurance coverage 2- Bradycardia: probably due to the use of 2 AV abraham blockers. - tele reviewed. - monitor 3- H/o HTN: - cont HCTZ. - hold cardizem and atenolol 4- leukocytosis : no signs of infection . Improved - monitor off Abx 5- H/o DM : - hold metfrmin - Cont SSI Possible dc tomorrow
[2020-01-17] MEDS: ROSUVASTATIN CA 20 MG TABLET (FP) PO SCH (21:37)
[2020-01-18] MEDS: INSULIN SLIDING SCALE (NOVOLOG) 1 VIAL SQ SCH ×2 (06:17→11:59)
[2020-01-18 07:49] LABS: HEMOGLOBIN 14.7 GM/dL (11.7-16.9); MCH 27.7 pg (25.7-33.7); MCHC 34.1 g/dl (32.0-35.9); MEAN CELL VOLUME 81.3 fl (80-96); MEAN PLT VOLUME 8.3 fl (7.5-11.1); PLATELET COUNT 242 K/MM3 (134-434); RBC 5.29 M/mm3 (4.00-5.60); RDW 14.5 % (11.9-15.9); WHITE BLOOD COUNT 12.1 K/mm3 (4.0-10.0)
[2020-01-18] MEDS: HYDROCHLOROTHIAZIDE 25 MG TABLET (FP) PO SCH (09:23)
[2020-01-18] MEDS: TAMSULOSIN HCL 0.4 MG CAP PO SCH (09:23)
[2020-01-18] MEDS: APIXABAN 5 MG TABLET PO SCH (09:23)
--- NOTE | 2020-01-18 11:33 | PN ---
Progress Note (short form) - Note Progress Note: s: no chest pain , palps, dizziness dyspnea Current Medications Apixaban (Eliquis -) 5 mg PO BID [facility] Last Admin: 01/18/20 09:23 Dose: 5 mg Documented by: Hydrochlorothiazide (Hctz -) 25 mg PO DAILY [facility] Last Admin: 01/18/20 09:23 Dose: 25 mg Documented by: Insulin Aspart (Novolog Vial Sliding Scale -) 1 vial SQ ACHS [facility]; Protocol Last Admin: 01/18/20 06:17 Dose: Not Given Documented by: Rosuvastatin Calcium (Crestor -) 20 mg PO HS [facility] Last Admin: 01/17/20 21:37 Dose: 20 mg Documented by: Tamsulosin HCl (Flomax -) 0.4 mg PO 0830 [facility] Last Admin: 01/18/20 09:23 Dose: 0.4 mg Documented by: Vital Signs Period Temp Pulse Resp BP Sys/Crawford Pulse Ox Last 24 Hr 97.6 F-97.9 F 54-58 18-20 128-142/2-90 94 Constitutional: Yes: No Distress, Calm Cardiovascular: Yes: Pulse Irregular Respiratory: Yes: CTA Bilaterally Gastrointestinal: Yes: Soft Edema: No Neurological: Yes: Alert, Oriented no jaundice, diaphoresis not agitated Assessment/Plan ssessment/Plan EKG afib, rate 61 bpm, no ischemic changes CXR: no acute process tele: sinus nilam, 50s afib, bradycardia: - slow rates improving, feels well this AM - received glucagon in ER - continue holding home diltiazem and atenolol - echo normal - eliquis 5 mg BID - agree with stopping home aspirin - now in sinus HTN: - cont HCTZ, holding abraham blocking agents as above DM: - not controlled - manage per primary HLD: - cont statin stable for discharge from cardiac perspective
[2020-01-18 11:44] VITALS: BP 140/73; PULSE 66; TEMP 97.6
--- NOTE | 2020-01-18 13:41 | PN ---
Teaching Attending Note Name of Resident: Mickey Flores ATTENDING PHYSICIAN STATEMENT I saw and evaluated the patient. I reviewed the resident's note and discussed the case with the resident. I agree with the resident's findings and plan as documented. SUBJECTIVE: seen at around 8 am No fever or chills. no N/V . no light headedness. no cp or pressure OBJECTIVE: NAD, awake, alert, pleasant, and cooperative. CV: RRR , 2/6 SM at base Lungs: CTAB Ext : No edema or ertyhema on upper or lower extremities. ASSESSMENT AND PLAN: Mr. Preston is a pleasant 79 y/o gentleman with h/o HTN, DM, lymphocytic thyroiditis, and HLP who presented with palpitations and a feeling of neck pressure. he was found to have A fib with bradycardia 1- New onset A fib: now in sinus on tele . No events on monitor - Cont Eliquis . - insurance covers eliquis - cont to hold AV abraham fredrick 2- Bradycardia: probably due to the use of 2 AV abraham blockers. - f/u with Card as outpt in a few days 3- H/o HTN: - cont HCTZ. - hold cardizem and atenolol. - he hasa BP cuff at home. he was advised to check BP daily and report to PCP/card 4- leukocytosis : no signs of infection . Improved 5- H/o DM : -resume metformin at dc DC home tomorrow
--- NOTE | 2020-01-18 13:59 | DS ---
Physical Exam: SUBJECTIVE: Patient seen and examined. Pt. endorsed undescribable sensation that radiated to his neck was what brought him in and that it happened once last night and again as I was talking to him. Pt. was not diaphoretic and was in no acute distress. No events on telemetry. Pt. asking to go home. OBJECTIVE: Vital Signs Period Temp Pulse Resp BP Sys/Crawford Pulse Ox Last 24 Hr 97.6 F-97.9 F 54-66 18-20 128-142/2-90 94-95 PHYSICAL EXAM ENERAL: The patient is awake, alert, and fully oriented, in no acute distress. HEAD: Normal with no signs of trauma. LUNGS: Breath sounds equal, clear to auscultation bilaterally, no crackles, no accessory muscle use. HEART: Regular rate and rhythm, S1, S2 without murmur ABDOMEN: Soft, nontender, nondistended, normoactive bowel sounds, no guarding EXTREMITIES: 2+ pulses, warm, well-perfused, no edema. NEUROLOGICAL: Cranial nerves II through XII grossly intact. Normal speech, gait normal SKIN: Warm, dry, normal turgor, no rashes or lesions noted LABS Laboratory Results - last 24 hr 01/17/20 01/17/20 01/18/20 17:09 21:43 05:26 WBC RBC Hgb Hct MCV MCH MCHC RDW Plt Count MPV POC Glucometer 142 136 136 01/18/20 01/18/20 06:28 11:57 WBC 12.1 H RBC 5.29 Hgb 14.7 Hct 43.0 MCV 81.3 MCH 27.7 MCHC 34.1 RDW 14.5 Plt Count 242 MPV 8.3 POC Glucometer 140 HOSPITAL COURSE: Date of Admission:01/16/20 Date of Discharge: 01/18/20 Pt. is a 79 y.o. M w/ PMHx. of HTN, HLD, DM and chronic lymphocytic thyroiditis, presented to the ED due to sensation of chest pressure/throat tightening and palpitations. Pt was admitted for New onset Afib in the setting of bradycardia. Pt. was seen by Cardiology (Dr. Rivera) and Atenolol and Diltiazem were discontinued as detailed below. Heart rate improved from 30s-40s to 60s. Pt. continued HCTZ and was advised to follow up with specialist as detailed below. Pt. was started on Eliquis and discontinued off aspirin as it was only for primary prevention. Echocardiogram was completely benign, EF: 65-70% Pt. had leukocytosis without obvious signs of infection and was monitored off antibiotics. Blood pressure remained stable on HCTZ alone. Hospital course discussed and agreed upon with Pt. and medical staff. Medications adjustments and follow up were advised as detailed below. Minutes to complete discharge: 35 Discharge Summary Problems reviewed: Yes Reason For Visit: LIGHTHEADNESS,ATRIAL FIBRILLATION Current Active Problems Atrial fibrillation (Acute) Bradycardia (Acute) Lightheadedness (Acute) Hypertension (Chronic) Condition: Improved - Instructions Diet, Activity, Other Instructions: You came in for lightheadedness and palpitations. We found on heart monitoring that you have atrial fibrillation( Irregular heart beat) and beating slow. We imaged your heart and did not find any structural abnormalities. We discontinued some of your medications because on heart monitoring we found that you have slow heart rate. Please STOP taking Diltiazem and Atenolol. Please STOP taking Aspirin. stop taking diclofenac as it can increase your risk fro bleeding. Please START taking Eliquis 5mg TWICE a day. This is a blood thinner. start tonight Please continue all your other medications as they were prescribed. Please follow up with your PCP, Dr. Fletcher, within 1 week. Please follow up with you Switchbox Assembler, Dr. Rivera, within 3-4 days to discuss your medications, you may need to be restarted on new medications and you may need to have your heart monitored again. Please monitor your gums, your urine, and your stool for any signs of blood. Please monitor for black stool as this can also indicate bleeding. Please check your skin for sign of bruising. Please be aware that there is a risk of bleeding in your head or your spine. Please monitor for any signs of sudden onset weakness, numbness, nausea, vomiting, changes in balance or any other concerning symptoms. If you develop any of these please go to the ED. Please check your blood pressure daily. report any value of > 160/100 to your doctor immediately. also take log to your doctor when you seen him Referrals: Jens Fletcher MD [Primary Care Provider] - 1 Week John Rivera MD [Staff Physician] - 1 Week Disposition: HOME - Home Medications Comprehensive Discharge Medication List: Ambulatory Orders Hydrochlorothiazide [Hctz -] 25 mg PO DAILY 04/26/12 Rosuvastatin Calcium [Crestor] 20 mg PO DAILY 04/26/12 Silodosin [Rapaflo] 1 cap PO DAILY 05/04/18 metFORMIN HCL [Metformin HCl] 2 tab PO DAILY 08/04/18 Apixaban [Eliquis] 5 mg PO BID #60 tablet 01/18/20 This patient is new to me today: No Emergency Visit: Yes ED Registration Date: 01/16/20 Care time: The patient presented to the Emergency Department on the above date and was hospitalized for further evaluation of their emergent condition. Critical Care patient: No - Discharge Referral Referred to [facility] Med P.C.: No ATTENDING PHYSICIAN STATEMENT I saw and evaluated the patient. I reviewed the resident's note and discussed the case with the resident. I agree with the resident's findings and plan as documented. SUBJECTIVE: OBJECTIVE: ASSESSMENT AND PLAN:
== END 2020-01-18 14:32 | disposition home or self-care (01) | DRG 310 ==
LOC: JER 08:52 → JERBED 10:59 → J4W 18:00
PROVIDERS: ADMIT Internal Medicine; ATTEND Internal Medicine
DX: I48.91 Unspecified atrial fibrillation (principal); I10 Essential (primary) hypertension; E78.5 Hyperlipidemia, unspecified; E11.9 Type 2 diabetes mellitus without complications; Z79.84 Long term (current) use of oral hypoglycemic drugs; E06.3 Autoimmune thyroiditis; R00.1 Bradycardia, unspecified; D72.829 Elevated white blood cell count, unspecified; T46.1X5A Adverse effect of calcium-channel blockers, initial encounter; T44.7X5A Adverse effect of beta-adrenoreceptor antagonists, initial encounter
CPT/HCPCS: 36415; 71045-TC-FY; 80053; 81003; 82803; 82962; 83735; 83880; 84100; 84443; 84484; 85025; 85027; 85610; 85730; 87086; 93005; 93010; 93306-TC; 97116-GP; 97161-GP; 99285-25; J7030

== ENCOUNTER 2020-01-20 17:39 | Inpatient (IN) | payer OTHER, MEDICARE ==
--- NOTE | 2020-01-20 18:25 | PDOC ---
Rapid Medical Evaluation Chief Complaint: Shortness of Breath Time Seen by Provider: 01/20/20 18:22 Medical Evaluation: Allergies Allergy/AdvReac Type Severity Reaction Status Date / Time No Known Allergies Allergy Verified 08/04/18 13:07 01/20/20 18:23 I have performed a brief in-person evaluation of this patient. The patient presents with a chief complaint of: cough w/ SOB and fever w/ anorexia since yesterday. H/o HTN, DM, thyroiditis, afib on eliquis. S/p admission for chest pain/palpitations and dx w/ new onset afib and discharged on 01/17 Pertinent physical exam findings:T of 102.7 w/ HR 112 and sating 92% on RA I have ordered the following: ekg/cxr/labs The patient will proceed to the ED for further evaluation Discharge Disposition - Diagnosis SOB (shortness of breath) Fever Qualifiers: Fever type: unspecified Qualified Code(s): R50.9 - Fever, unspecified - Referrals - Patient Instructions - Post Discharge Activity
--- NOTE | 2020-01-20 19:07 | PDOC ---
History of Present Illness - General Chief Complaint: Shortness of Breath Stated Complaint: S.O.B. COUGHING/FEVER/VOMITING/RESPIRATORY Time Seen by Provider: 01/20/20 18:22 History Source: Patient Exam Limitations: No Limitations - History of Present Illness Initial Comments: Pt is a 79 yo M, with PMH of HTN, NIDDM, thyroid nodules, and Afib (newly diagnosed on Eliquis), who is presenting from home with complaints of subjective fever, productive cough, generalized body aches, and SOB. Pt was admitted to [facility] 01/25, and was exposed to a pt with influenza at that time, per the pt. Pt began to have productive cough and fever last night, and was associated with nausea today. Pt denies any headache, neck stiffness, vision changes, syncope, chest pain, hemoptysis, palpitations, vomiting, abdominal pain, urinary symptoms, diarrhea/constipation, or leg swelling. Allergies: NKDA PCP: Dr. Fletcher Social: Pt denies any cigarette, alcohol, or drug use. Pt denies any recent travel. Sick contacts during hospitalization. Surgical: no relevant history. Family: no relevant history. 01/20/20 22:13 01/20/20 22:15 Past History - Travel Traveled outside of the country in the last 30 days: No Close contact w/someone who was outside of country & ill: No - Past Medical History Allergies/Adverse Reactions: Allergies Allergy/AdvReac Type Severity Reaction Status Date / Time No Known Allergies Allergy Verified 08/04/18 13:07 Home Medications: Ambulatory Orders Hydrochlorothiazide [Hctz -] 25 mg PO DAILY 04/26/12 Rosuvastatin Calcium [Crestor] 20 mg PO DAILY 04/26/12 Silodosin [Rapaflo] 1 cap PO DAILY 05/04/18 metFORMIN HCL [Metformin HCl] 2 tab PO DAILY 08/04/18 Apixaban [Eliquis] 5 mg PO BID #60 tablet 01/18/20 Anemia: No Asthma: No Cancer: No Cardiac Disorders: Yes (sob) CVA: No COPD: No CHF: No Dementia: No Diabetes: Yes GI Disorders: No Disorders: Yes (BPH) HTN: Yes Hypercholesterolemia: Yes Liver Disease: No Seizures: No Thyroid Disease: Yes (hyper) - Surgical History Abdominal Surgery: No Appendectomy: No Cardiac Surgery: No Cholecystectomy: No Lung Surgery: No Neurologic Surgery: No Orthopedic Surgery: Yes (LEFT CARPLE TUNNEL) - Immunization History Immunization Up to Date: No - Psycho Social/Smoking Cessation Hx Smoking History: Never smoked Have you smoked in the past 12 months: No Information on smoking cessation initiated: No 'Breaking Loose' booklet given: 04/26/07 Hx Alcohol Use: No Drug/Substance Use Hx: No Substance Use Type: Alcohol Hx Substance Use Treatment: No Respiratory Specific PMHX - Complaint Specific PMHX Hx Airway Support: No Hx Intubation: No Hx Asthma: No Hx Smoking Exposure: No Hx Bronchitis: No Hx Pneumonia: No Review of Systems - Review of Systems Able to Perform ROS?: Yes Is the patient limited [place] proficient: No Constitutional: Yes: Chills, Fever, Loss of Appetite, Malaise, Weight Stable. No: Diaphoresis, Weakness HEENTM: No: Recent change in vision, Nose Congestion, Throat Pain, Throat Swelling, Difficulty Swallowing Respiratory: Yes: Cough, Shortness of Breath, SOB at Rest, Productive cough. No: Orthopnea, Hemoptysis Cardiac (ROS): No: Chest Pain, Edema, Irregular Heart Rate, Lightheadedness, Palpitations, Syncope, Chest Tightness ABD/GI: Yes: Nausea, Poor Appetite. No: Constipated, Diarrhea, Poor Fluid Intake, Vomiting : No: Burning, Dysuria, Frequency, Hematuria, Pain, Urgency Musculoskeletal: No: Back Pain, Muscle Pain, Muscle Weakness Integumentary: No: Rash Neurological: No: Headache, Numbness, Weakness, Unsteady Gait, Dizziness Psychiatric: No: Sleep Pattern Change, Change in Appetite Endocrine: No: Increased Urine, Change in Weight Hematologic/Lymphatic: No: Anemia, Blood Clots, Easy Bleeding, Easy Bruising All Other Systems: Reviewed and Negative *Physical Exam - Vital Signs Last Vital Signs Temp Pulse Resp BP Pulse Ox 102.2 F H 112 H 17 148/84 92 L 01/20/20 18:22 01/20/20 18:22 01/20/20 18:22 01/20/20 18:22 01/20/20 18:22 - Physical Exam Tachycardia to 110s, febrile 102.7 rectal, 92% on RA (improved to 97% 2 L NC). Obese body habitus. Pt alert and oriented x3. solar hot water installer generally intact, muscular strength and sensation intact. No midline spinal tenderness, step-offs, or crepitus. Head normocephalic, atraumatic. Eyes PERRLA, EOMI. Oropharynx without erythema or exudates, no LAD b/l. No nasal congestion. Hearing intact. Clear heart sounds, S1/S2, no JVD, b/l pedal edema, or heart murmur. Diffusely diminished breath sounds with end-expiratory wheezing, poor air movement throughout. +Accessory muscle usage. No abdominal or CVA tenderness to palpation, no rebound, no guarding. Abdomen soft, non-distended, and with normoactive bowel sounds. Skin without jaundice or rash. 01/20/20 22:18 ED Treatment Course - LABORATORY CBC & Chemistry Diagram: 01/20/20 19:15 01/20/20 19:15 Medical Decision Making - Medical Decision Making Pt was seen at bedside, also will be seen by attending Dr. Maldonado. Pt pr esenting with URI symptoms after recent hospitalization, hypoxia on presentation which improved with oxygenation. Sepsis work-up. Provided 2 L IV NS, 3 amp duoneb, ofirmev for improvement of fever, dehydration, wheezing. Will continue to reassess pt and monitor for symptomatic improvement. ECG: Sinus tachycardia, intervals WNL (HR 113, NJ 200, QRS 98, QTc 438). No TWIs or significant ST segment changes. No Afib noted on this ECG. CBC: WBC 18, neutrophilic predominance CMP: Na 132, K 3.6, Cl 96 -- providing IVF NS Chest x-ray without acute pathology Due to recent admission, comorbidities, and exposures to contacts in the hospital, will cover for HAP and influenza Tachycardia improving, stable with NC O2 supplementation Pt admitted to hospitalist team for antibiotics and further observation 01/20/20 22:19 Discharge - Discharge Information Problems reviewed: Yes Clinical Impression/Diagnosis: SOB (shortness of breath), Cough, Acute respiratory failure with hypoxemia Fever Qualifiers: Fever type: unspecified Qualified Code(s): R50.9 - Fever, unspecified Condition: Stable - Admission Yes - Follow up/Referral - Patient Discharge Instructions - Post Discharge Activity
[2020-01-20] MEDS ORDERED: ACETAMINOPHEN 1000 MG/100 ML VIAL (NON FORMULARY) IVPB ONE (19:10)
[2020-01-20 19:30] LABS: BASO % 0.5 % (0-2.0); EOS % 0.3 % (0-4.5); HEMATOCRIT 46.3 % (35.4-49); HEMOGLOBIN 15.5 GM/dL (11.7-16.9); LYMPH % 2.3 % (8-40); MCH 27.5 pg (25.7-33.7); MCHC 33.5 g/dl (32.0-35.9); MEAN CELL VOLUME 82.2 fl (80-96); MEAN PLT VOLUME 8.3 fl (7.5-11.1); MONO % 6.8 % (3.8-10.2); NEUT % 90.1 % (42.8-82.8); PLATELET COUNT 247 K/MM3 (134-434); RBC 5.63 M/mm3 (4.00-5.60); RDW 14.3 % (11.9-15.9); WHITE BLOOD COUNT 18.4 K/mm3 (4.0-10.0)
--- NOTE | 2020-01-20 19:35 | PDOC ---
Attending Attestation - Resident Resident Name: Yana Corona - ED Attending Attestation I have performed the following: I have examined & evaluated the patient, The case was reviewed & discussed with the resident, I agree w/resident's findings & plan - HPI HPI: 01/20/20 22:51 see resident hpi 01/20/20 22:51 - Physicial Exam PE: 01/20/20 22:51 see resident exam - Medical Decision Making 01/20/20 22:51 79-year-old male with recent hospitalization now with fever and shortness of breath Patient improved after duo nebs Will cover due to recent admission with Rocephin and Zithromax and vancomycin He is anticoagulated, pulmonary embolism highly unlikely COVID19 screen applied, will consult with Department of Health for recommendations
[2020-01-20] MEDS ORDERED: SODIUM CHLORIDE 2,000 ML IV STA (19:38)
[2020-01-20] MEDS ORDERED: ALBUTEROL SO4 2.5/IPRATROPIUM 0.5 INH SOL 3 ML VIAL.NEB. NEB ONE ×2 (19:52→20:38)
[2020-01-20 20:04] LABS: BILIRUBIN,TOTAL 0.8 mg/dL (0.2-1); BLOOD UREA NITROGEN 15.5 mg/dL (7-18); CALCIUM 9.4 mg/dL (8.5-10.1); CREATININE 1.1 mg/dL (0.55-1.3); POTASSIUM 3.6 mmol/L (3.5-5.1); TOT PROT 7.6 g/dl (6.4-8.2)
[2020-01-20 20:12] LABS: VENOUS PC02 38.2 mmHg (38-52); VENOUS PH 7.48 (7.31-7.41); VENOUS PO2 63.1 mmHg (28-48)
[2020-01-20] MEDS ORDERED: AZITHROMYCIN IVPB 500 MG in DEXTROSE 5%-WATER - 250 ML IVPB ONE (20:18)
[2020-01-20] MEDS ORDERED: CEFTRIAXONE 1,000 MG in DEXTROSE 5%-WATER - 50 ML IVPB ONE (20:19)
[2020-01-20] MEDS ORDERED: OSELTAMIVIR PHOSPHATE 75 MG CAPSULE PO ONE (20:19)
[2020-01-20] MEDS ORDERED: VANCOMYCIN 1,500 MG in DEXTROSE 5%-WATER - 250 ML IVPB ONE (20:58)
[2020-01-20] MEDS: ALBUTEROL SO4 0.083% IH SOL 2.5 MG/3 ML VIAL.NEB. NEB SCH ×2 (21:08→21:10)
[2020-01-20] MEDS ORDERED: AZITHROMYCIN IVPB 500 MG/250 ML BAG IVPB ONE (21:11)
[2020-01-20] MEDS ORDERED: OSELTAMIVIR PHOSPHATE 75 MG CAPSULE ONE (21:11)
[2020-01-20] MEDS ORDERED: CEFTRIAXONE 1 GM/50 ML BAG ONE (21:12)
[2020-01-20] MEDS ORDERED: ACETAMINOPHEN 325 MG TABLET (FP) PO PRN (22:01)
--- NOTE | 2020-01-20 22:07 | HP ---
CHIEF COMPLAINT: generalized weakness and fatigue, persistent cough PCP: Dr. Fletcher HISTORY OF PRESENT ILLNESS: 79M w/ pmhx of HTN, HLD, DM and chronic lymphocytic thyroiditis, presents to the ED for generalized weakness, fatigue and persistent cough. Of note, pt was recently discharged from the hospital on 01/18/20 treated for new onset afib, was seen by cardiology and discharged on Eliquis. Since leaving the hospital, pt reports poor PO intake, increasing fatigue, generalized weakness, and a persistent cough. States he has a productive cough with clear productive sputum. Says his cough has been keeping him up at night which prompted him to come to the ED. Also admits to chills, but denies fever, n/v, chest pain, shortness of breath. Says he has not been around anyone sick at home as he lives alone, but did mention that his previous roommate during his last admission was flu positive and had to change rooms for isolation. States he has been having poor PO intake and has been feeling nausea when attempting to eat to the point where he tried to gag himself in order to vomit although denies being able to vomit. ER course was notable for: (1) 102.2, HR 104, 142/62, 92% on RA. WBC 18.4, Na 132, K 3.6, Glu 145, Lac 1.3. Flu neg (2) CXR neg for acute pulm disease; unchanged from previous. (3) Given Ceftriaxone/Azithromycin/Vanc, Tamiflu, Duonebs Recent Travel: Denies PAST MEDICAL HISTORY: As per HPI PAST SURGICAL HISTORY: Carpal tunnel surgery Social History: Smoking:denies Alcohol:drinks 2-3 glasses of beer daily Drugs: denies last month. Lives alone at home. Allergies No Known Allergies Allergy (Verified 08/04/18 13:07) HOME MEDICATIONS: Home Medications - Reconciled Medication Instructions Recorded Hydrochlorothiazide [Hctz -] 25 mg PO DAILY 04/26/12 Rosuvastatin Calcium [Crestor] 20 mg PO DAILY 04/26/12 Silodosin [Rapaflo] 1 cap PO DAILY 05/04/18 metFORMIN HCL [Metformin HCl] 2 tab PO DAILY 08/04/18 Apixaban [Eliquis] 5 mg PO BID #60 tablet 01/18/20 REVIEW OF SYSTEMS CONSTITUTIONAL: generalized weakness, malaise, loss of appetite Absent: fever, chills, diaphoresis, weight change HEENT: Absent: rhinorrhea, nasal congestion, throat pain, throat swelling, difficulty swallowing, mouth swelling, ear pain, eye pain, visual changes CARDIOVASCULAR: Absent: chest pain, syncope, palpitations, irregular heart rate, lightheadedness, peripheral edema RESPIRATORY: cough Absent: , shortness of breath, dyspnea with exertion, orthopnea, wheezing, stridor, hemoptysis GASTROINTESTINAL: Absent: abdominal pain, abdominal distension, nausea, vomiting, diarrhea, constipation, melena, hematochezia GENITOURINARY: Absent: dysuria, frequency, urgency, hesitancy, hematuria, flank pain, genital pain MUSCULOSKELETAL: Absent: myalgia, arthralgia, joint swelling, back pain, neck pain SKIN: Absent: rash, itching, pallor HEMATOLOGIC/IMMUNOLOGIC: Absent: easy bleeding, easy bruising, lymphadenopathy, frequent infections ENDOCRINE: Absent: unexplained weight gain, unexplained weight loss, heat intolerance, cold intolerance NEUROLOGIC: Absent: headache, focal weakness or paresthesias, dizziness, unsteady gait, seizure, mental status changes, bladder or bowel incontinence PSYCHIATRIC: Absent: anxiety, depression, suicidal or homicidal ideation, hallucinations. PHYSICAL EXAMINATION Vital Signs - 24 hr 01/20/20 01/20/20 18:22 21:41 Temperature 102.2 F H 99.2 F Pulse Rate 112 H Pulse Rate [ 104 H Left Radial] Respiratory 17 16 Rate Blood Pressure 148/84 Blood Pressure 146/62 [Right Arm] O2 Sat by Pulse 92 L 96 Oximetry (%) GENERAL: AAOx3. NAD. Resting comfortably in bed. HEENT: AT/NC. EOMI. MMM. No NECK: Normal range of motion, supple without lymphadenopathy, JVD, or masses. LUNGS: Breath sounds equal, clear to auscultation bilaterally. No wheezes, and no crackles. No accessory muscle use. HEART: Regular rate and rhythm, normal S1 and S2 without murmur, rub or gallop. ABDOMEN: Soft, NT/ND. Normoactive BS in all 4 Qs. No rebound tenderness or guarding. MUSCULOSKELETAL: Normal range of motion at all joints. No bony deformities or tenderness. No CVA tenderness. EXTREMITIES: No peripheral edema noted. NEUROLOGICAL: Cranial nerves II-XII intact. Normal speech. SKIN: Warm, dry, normal turgor, no rashes or lesions noted, normal capillary refill. CBC, BMP 01/20/20 19:15 01/20/20 19:15 ASSESSMENT/PLAN: 79M w/ pmhx of HTN, HLD, DM and chronic lymphocytic thyroiditis, presents to the ED for generalized weakness, fatigue and persistent cough admitted for presumptive #Sepsis 2/2 CAP; Febrile 102.2, HR 112, WBC 18.4. Initial 92% on RA. -In the ED, IV Ceft/Azithro/Vanc/Tamiflu given for empiric coverage due to rec ent hospitalization and known sick contact during last admission (hospital roommate was flu+) -Cont IV Ceftriaxone/Azithromycin for CAP -Per ED, pt was positive for COVID-10 screening algorithm (febrile + cough, and hypoxic at 92% - although no known travel hx/recent COVID exposure); KARIN was contacted ([facility]) who recommended screening for COVID. Tests sent; pending results, and pt now in airborne and contact precautions in isolation. -CXR was neg for active pulm disease -Flu neg, Lac normal -Sputum cx, Urine Leg/S. pneumo ordered -Tylenol 650 Q4H PO PRN for fever -Zofran 4 Q6H IVP PRN for nausea -IVf #New Onset Afib; Recent diagnosis. Now tachycardic in setting of sepsis. -Not currently on abraham-blocking agents as pt was previously found to be bradycardic during last hospitalization. Was evaluated by cardiology then and advised to hold abraham-blocking agents until outpatient follow up. CHADSVASc 4 -Cont home meds: Eliquis 5 BID #HTN/HLD; Will hold home HCTZ 25 PO QD in setting of sepsis and hyponatremia. Cont home med: Crestor 20 #DM; Hold home meds. BGM/ISS ACHS. #Ppx DVT: On home Eliquis #FEN -LR @ 100 -recheck lytes in AM (Na) -Diabetic diet Dispo -Admit to med-surg Family Medical History Family Hx Diabetes: Brother Visit type - Emergency Visit Emergency Visit: Yes ED Registration Date: 01/20/20 Care time: The patient presented to the Emergency Department on the above date and was hospitalized for further evaluation of their emergent condition. - New Patient This patient is new to me today: Yes Date on this admission: 01/21/20 - Critical Care Critical Care patient: No ATTENDING PHYSICIAN STATEMENT I saw and evaluated the patient. I reviewed the resident's note and discussed the case with the resident. I agree with the resident's findings and plan as documented. SUBJECTIVE: OBJECTIVE: ASSESSMENT AND PLAN:
--- NOTE | 2020-01-20 23:05 | PN ---
Teaching Attending Note Name of Resident: Barbara Barboza ATTENDING PHYSICIAN STATEMENT I saw and evaluated the patient. I reviewed the resident's note and discussed the case with the resident. I agree with the resident's findings and plan as documented. SUBJECTIVE: 79M w/ pmhx of HTN, HLD, DM and chronic lymphocytic thyroiditis, presents to the ED for generalized weakness, fatigue and persistent cough. Patient was recently discharged from hospital on 01/18/2020 after he was treated for new onset of A. fib, seen by cardiology and discharged on Eliquis. Patient has not been himself since discharge complaining of cough with clear sputum, admits to chills but denied fever, nausea or vomiting or chest pain or shortness of breath. Has not traveled to [place] or had any sick contacts. OBJECTIVE: Last Vital Signs Temp Pulse Resp BP Pulse Ox 99.2 F 104 H 16 146/62 96 01/20/20 21:41 01/20/20 21:41 01/20/20 21:41 01/20/20 21:41 01/20/20 21:41 Physical exam showed an elderly man not in any acute distress. Appeared nontoxic. Head was atraumatic, with moist mucous membranes. No lympha denopathy. Neck was supple. Cardiovascular exam was S1, S2 with no murmurs. Chest was clear.abdomen soft, nontender. Lower extremities with no edema. Abnormal Lab Results 01/20/20 01/20/20 01/20/20 19:15 19:15 19:40 WBC 18.4 H RBC 5.63 H Absolute Neuts (auto) 16.6 H Neutrophils % 90.1 H Lymphocytes % 2.3 L D VBG pH 7.48 H POC VBG pO2 63.1 H VBG O2 Sat (Frankie) 91.7 H VBG Base Excess 4.4 H Sodium 132 L Chloride 96 L Random Glucose 145 H AST 9 L Chest x-ray performed, reviewed with reportimpression was no significant interval change or acute cardiopulmonary disease. ASSESSMENT AND PLAN: #Sepsis secondary to community-acquired pneumoniafever, tachycardia, leukocytosis with neutrophil predominance. Hypoxia noted as patient was satting 92% initially on room air. As per Department [employer] Health employeeNiles Hewlet, patient should be isolated for COVID 19. Was then single room in ER with airborne precautions and contact precautions. Blood cultures x2 Urine cultures Sputum culture Urine Legionella vision Urine strep antigen Ceftriaxone, azithromycin Follow-up with Department of Health Tylenol 650 mg p.o. as needed for fever Zofran IV as needed for nausea #Juan fibfelisa BASC score was noted to be 4 Continue with home dose Eliquis 5 mg p.o. twice daily #Hypertensiondyslipidemia Hold hydrochlorothiazide as patient was found to be hyponatremic and hypochloremic. #Dyslipidemia Continue with Crestor home dose #Diabetes mellitus NovoLog sliding scale Diabetic diet
[2020-01-21] MEDS ORDERED: ONDANSETRON 4 MG/2 ML VIAL IVPUSH SCH (04:15)
[2020-01-21] MEDS ORDERED: ONDANSETRON 4 MG/2 ML VIAL ONE (05:45)
[2020-01-21] MEDS: ONDANSETRON 4 MG/2 ML VIAL IVPUSH SCH ×4 (06:15→22:08)
[2020-01-21 06:44] LABS: BASO % 0.4 % (0-2.0); EOS % 0.1 % (0-4.5); HEMATOCRIT 40.6 % (35.4-49); HEMOGLOBIN 13.8 GM/dL (11.7-16.9); LYMPH % 5.3 % (8-40); MCH 27.6 pg (25.7-33.7); MCHC 34.1 g/dl (32.0-35.9); MEAN CELL VOLUME 80.8 fl (80-96); MEAN PLT VOLUME 8.3 fl (7.5-11.1); MONO % 9.8 % (3.8-10.2); NEUT % 84.4 % (42.8-82.8); PLATELET COUNT 210 K/MM3 (134-434); RBC 5.02 M/mm3 (4.00-5.60); RDW 14.6 % (11.9-15.9); WHITE BLOOD COUNT 12.6 K/mm3 (4.0-10.0)
[2020-01-21 07:02] LABS: ALBUMIN 3.5 g/dl (3.4-5.0); BILIRUBIN,TOTAL 1.4 mg/dL (0.2-1); BLOOD UREA NITROGEN 11.4 mg/dL (7-18); CALCIUM 8.5 mg/dL (8.5-10.1); CREATININE 0.9 mg/dL (0.55-1.3); MAGNESIUM 1.9 mg/dL (1.8-2.4); POTASSIUM 3.6 mmol/L (3.5-5.1)
[2020-01-21] MEDS: INSULIN SLIDING SCALE (NOVOLOG) 1 VIAL SQ SCH ×4 (08:06→22:07)
[2020-01-21 09:05] LABS: BILIRUBIN,DIRECT 0.3 mg/dL (0.0-0.2)
[2020-01-21] MEDS ORDERED: AZITHROMYCIN IVPB 500 MG/250 ML BAG IVPB ONE (09:05)
[2020-01-21] MEDS ORDERED: APIXABAN 5 MG TABLET ONE (09:05)
[2020-01-21] MEDS ORDERED: cefTRIAXone SODIUM 1 GM VIAL ONE (09:05)
[2020-01-21] MEDS ORDERED: TAMSULOSIN HCL 0.4 MG CAP ONE (09:05)
[2020-01-21] MEDS ORDERED: CEFTRIAXONE 1 GM/50 ML BAG ONE (09:07)
[2020-01-21] MEDS ORDERED: ACETAMINOPHEN 325 MG TABLET (FP) ONE (09:21)
[2020-01-21] MEDS ORDERED: SILODOSIN PO SCH (10:00)
[2020-01-21] MEDS ORDERED: CEFTRIAXONE 1 GM in DEXTROSE 5%-WATER - 50 ML IVPB SCH (10:00)
[2020-01-21] MEDS: LACTATED RINGERS SOLUTION 1,000 ML IV SCH ×2 (10:04→22:31)
[2020-01-21] MEDS: APIXABAN 5 MG TABLET PO SCH ×2 (10:04→22:11)
[2020-01-21] MEDS: AZITHROMYCIN IVPB 500 MG/250 ML BAG IVPB SCH (10:04)
[2020-01-21] MEDS: TAMSULOSIN HCL 0.4 MG CAP PO SCH (10:04)
--- NOTE | 2020-01-21 11:00 | EKG ---
Test Reason : Blood Pressure : / mmHG Vent. Rate : 113 BPM Atrial Rate : 113 BPM P-R Int : 200 ms QRS Dur : 098 ms QT Int : 320 ms P-R-T Axes : 063 -19 084 degrees QTc Int : 438 ms SINUS TACHYCARDIA POSSIBLE ANTERIOR INFARCT (CITED ON OR BEFORE 16-JAN-2020) ABNORMAL ECG WHEN COMPARED WITH ECG OF 16-JAN-2020 08:58, SINUS RHYTHM HAS REPLACED ATRIAL FIBRILLATION VENT. RATE HAS INCREASED BY [address] NOW DEPRESSED IN LATERAL LEADS Confirmed by Edgar Ring MD ([id number]) on 01/21/2020 11:00:30 AM Referred By: Confirmed By:Edgar Ring MD
[2020-01-21] MEDS ORDERED: amLODIPine BESYLATE 5 MG TABLET (FP) ONE (11:38)
[2020-01-21] MEDS ORDERED: INSULIN (NOVOLOG) ASPART 100 UNITS/ML 10ML VIAL ONE ×2 (11:57→17:02)
[2020-01-21] MEDS: amLODIPine BESYLATE 5 MG TABLET (FP) PO SCH (12:38)
--- NOTE | 2020-01-21 12:39 | PN ---
Teaching Attending Note Name of Resident: Sarah Rivera ATTENDING PHYSICIAN STATEMENT I saw and evaluated the patient. I reviewed the resident's note and discussed the case with the resident. I agree with the resident's findings and plan as documented. SUBJECTIVE: He denied fever at home but felt fatigued and tired. + SOB . he reports pain in abd but mid. wasnauseous adn vomited last night , non bloody emesis. he denies diarrhea. He has been taking his meds at home adn denies any sick contact after dc. he denies sore throat, runny nose or runny eyes cough with production of yellow sputum OBJECTIVE: NAD, awake, alert, pleasant, and cooperative. CV: RRR , 2/6 SM at base Lungs: CTAB Abd: sfot, NT, Nd , NL BS Ext: No edema or erythema on upper or lower extremities. ASSESSMENT AND PLAN: Mr. Preston is a pleasant 79 y/o gentleman with h/o HTN, DM, lymphocytic thyroiditis, and HLP , and recent hospitalization for new onset A fib . he presented with fatigue and SOB and was found to have fever . 1-Sepsis: unknown d source , but might be Inluenza, as he has recent exposure. No PNA on cxray but due to volume depletion , cxray might be falsely positive. leukocytosis has neutrophil predominance. Rapid flu is neg. - send for CT of chest without contrast - start tamiflu empirically - Send full respiratory viral panel - send RSV PCR - Nasopharyngeal and oropharyngeal swabs were sent fro testing for COVID -19. ER staff spoke to [facility] last night. - Will try to send sputum for COVID-19 - give IVF - ID consult for help 2- Recent diagnosis of A fib; - cont eliquis. - Monitor HR, might need ot start BB - No more bradycardia 3- h/o HTN with hypertensive urgency last night . BP is 140s now - hold HCTZ due to sepsis - add norvasc . 4- H/o DM : cont SSI. DVT PX: Add heparin SQ
--- NOTE | 2020-01-21 13:34 | CON.ID ---
Consult Consult Specialty:: infectious diseases Referred by:: dr wright Reason for Consultation:: pneumonia,r/o coronovirus - History of Present Illness Chief Complaint: sob,fever,sputum production History of Present Illness: 79M w/ pmhx of HTN, HLD, DM and chronic lymphocytic thyroiditis, presents to the ED for generalized weakness, fatigue and persistent cough. , pt was recently discharged from the hospital on 01/18/20 treated for new onset afib, was seen by cardiology and discharged on Eliquis. Since leaving the hospital, pt reports poor PO intake, increasing fatigue, generalized weakness, and a persistent cough. States he has a productive cough with clear productive sputum. Says his cough has been keeping him up at night which prompted him to come to the ED. Also admits to chills, but denies fever, n/v, chest pain, shortness of breath. Says he has not been around anyone sick at home as he lives alone, but did mention that his previous roommate during his last admission was flu positive and had to change rooms for isolation. States he has been having poor PO intake and has been feeling nausea when attempting to eat to the point where he tried to gag himself in order to vomit although denies being able to vomit. according to him he started becoming more sick on monday - History Source History Provided By: Patient Limitations to Obtaining History: No Limitations - Alcohol/Substance Use Hx Alcohol Use: No - Smoking History Smoking history: Never smoked Have you smoked in the past 12 months: No Home Medications - Allergies Allergies/Adverse Reactions: Allergies Allergy/AdvReac Type Severity Reaction Status Date / Time No Known Allergies Allergy Verified 08/04/18 13:07 - Home Medications Home Medications: Ambulatory Orders Hydrochlorothiazide [Hctz -] 25 mg PO DAILY 04/26/12 Rosuvastatin Calcium [Crestor] 20 mg PO DAILY 04/26/12 Silodosin [Rapaflo] 1 cap PO DAILY 05/04/18 metFORMIN HCL [Metformin HCl] 2 tab PO DAILY 08/04/18 Apixaban [Eliquis] 5 mg PO BID #60 tablet 01/18/20 Review of Systems - Review of Systems Constitutional: reports: Chills, Other Eyes: reports: No Symptoms HENT: reports: No Symptoms Neck: reports: No Symptoms Cardiovascular: reports: No Symptoms Respiratory: reports: Cough, SOB, SOB on Exertion, Other (sputum production,cough) Gastrointestinal: reports: No Symptoms Genitourinary: reports: No Symptoms Integumentary: reports: No Symptoms Neurological: reports: No Symptoms Endocrine: reports: No Symptoms Hematology/Lymphatic: reports: No Symptoms Psychiatric: reports: No Symptoms Physical Exam Vital Signs: Vital Signs Temperature 99.2 F 01/21/20 10:29 Pulse Rate 86 01/21/20 10:29 Respiratory Rate 18 01/21/20 10:29 Blood Pressure 183/97 H 01/21/20 10:29 O2 Sat by Pulse Oximetry (%) 94 L 01/21/20 10:29 Constitutional: Yes: Well Nourished, Calm, Mild Distress Eyes: Yes: Conjunctiva Clear HENT: Yes: Atraumatic, Normocephalic Neck: Yes: Supple, Trachea Midline Cardiovascular: Yes: Pulse Irregular Respiratory: Yes: On Nasal O2, Poor Air Entry, Rhonchi, Other (sputum production) Gastrointestinal: Yes: Normal Bowel Sounds, Soft Musculoskeletal: Yes: WNL Extremities: Yes: WNL Neurological: Yes: Alert, Oriented Psychiatric: Yes: Alert, Oriented Labs: CBC, BMP 01/21/20 05:40 01/21/20 05:40 Imaging - Results Chest X-ray: Report Reviewed, Image Reviewed Assessment/Plan 79M w/ pmhx of HTN, HLD, DM and chronic lymphocytic thyroiditis, presents to the ED for generalized weakness, fatigue and persistent cough admitted for presumptive patient also being admitted for r/o coronovirus sepsis [neumonia cough afin weakness chills plan will change abx to zosyn ct scan of the chest resp support if more sputum production sens sputum for cx
[2020-01-21] MEDS ORDERED: HEPARIN NA (PORCINE) 5,000 UNITS/ML 1ML VIAL SQ SCH ×2 (14:00→22:00)
[2020-01-21] MEDS ORDERED: OSELTAMIVIR PHOSPHATE 75 MG CAPSULE ONE (14:27)
[2020-01-21] MEDS ORDERED: PIPERACILLIN/TAZOB 3.375 GM 3.375 GM/50 ML BAG IVPB ONE (14:28)
[2020-01-21] MEDS: OSELTAMIVIR PHOSPHATE 75 MG CAPSULE PO SCH ×2 (14:29→22:11)
[2020-01-21] MEDS: PIPERACILLIN/TAZOB 3.375 GM 3.375 GM in DEXTROSE 5%-WATER - 50 ML IVPB SCH ×2 (14:29→17:43)
[2020-01-21 15:31] VITALS: BMI 34.3
[2020-01-21] MEDS ORDERED: PIPERACILLIN/TAZOBACTAM 3.375 GM VIAL IVPB ONE (17:26)
[2020-01-21] MEDS ORDERED: DEXTROSE 5%-WATER - 50 ML IVPB ONE (17:26)
--- NOTE | 2020-01-21 18:25 | PN ---
Physical Exam: SUBJECTIVE: Patient not seen and not examined by me. OBJECTIVE: Vital Signs Period Temp Pulse Resp BP Sys/Crawford Pulse Ox Last 24 Hr 99.0 F-102.2 F 86-112 16-20 140-184/62-97 92-96 Laboratory Last Values WBC 12.6 K/mm3 (4.0-10.0) H 01/21/20 05:40 RBC 5.02 M/mm3 (4.00-5.60) 01/21/20 05:40 Hgb 13.8 GM/dL (11.7-16.9) 01/21/20 05:40 Hct 40.6 % (35.4-49) 01/21/20 05:40 MCV 80.8 fl (80-96) 01/21/20 05:40 MCH 27.6 pg (25.7-33.7) 01/21/20 05:40 MCHC 34.1 g/dl (32.0-35.9) 01/21/20 05:40 RDW 14.6 % (11.9-15.9) 01/21/20 05:40 Plt Count 210 K/MM3 (134-434) 01/21/20 05:40 MPV 8.3 fl (7.5-11.1) 01/21/20 05:40 Absolute Neuts (auto) 10.7 K/mm3 (1.5-8.0) H 01/21/20 05:40 Neutrophils % 84.4 % (42.8-82.8) H 01/21/20 05:40 Lymphocytes % 5.3 % (8-40) L D 01/21/20 05:40 Monocytes % 9.8 % (3.8-10.2) 01/21/20 05:40 Eosinophils % 0.1 % (0-4.5) 01/21/20 05:40 Basophils % 0.4 % (0-2.0) 01/21/20 05:40 Nucleated RBC % 0 % (0-0) 01/21/20 05:40 VBG pH 7.48 (7.31-7.41) H 01/20/20 19:40 POC VBG pCO2 38.2 mmHg (38-52) 01/20/20 19:40 POC VBG pO2 63.1 mmHg (28-48) H 01/20/20 19:40 VBG HCO3 27.8 mmol/L (23-29) 01/20/20 19:40 VBG O2 Sat (Frankie) 91.7 % (70-80) H 01/20/20 19:40 VBG Base Excess 4.4 meq/l (-2-2) H 01/20/20 19:40 Sodium 134 mmol/L (136-145) L 01/21/20 05:40 Potassium 3.6 mmol/L (3.5-5.1) 01/21/20 05:40 Chloride 96 mmol/L (98-107) L 01/21/20 05:40 Carbon Dioxide 28 mmol/L (21-32) 01/21/20 05:40 Anion Gap 10 MMOL/L (8-16) 01/21/20 05:40 BUN 11.4 mg/dL (7-18) 01/21/20 05:40 Creatinine 0.9 mg/dL (0.55-1.3) 01/21/20 05:40 Est GFR (CKD-EPI)AfAm 95.15 01/21/20 05:40 Est GFR (CKD-EPI)NonAf 82.09 01/21/20 05:40 POC Glucometer 135 UNITS (80-120) 01/21/20 17:40 Random Glucose 148 mg/dL (74-106) H 01/21/20 05:40 Lactic Acid 1.3 mmol/L (0.4-2.0) 01/20/20 19:40 Calcium 8.5 mg/dL (8.5-10.1) 01/21/20 05:40 Phosphorus 3.0 mg/dL (2.5-4.9) 01/21/20 05:40 Magnesium 1.9 mg/dL (1.8-2.4) 01/21/20 05:40 Total Bilirubin 1.4 mg/dL (0.2-1) H 01/21/20 05:40 Direct Bilirubin 0.3 mg/dL (0.0-0.2) H 01/21/20 05:40 AST 13 U/L (15-37) L 01/21/20 05:40 ALT 20 U/L (13-61) 01/21/20 05:40 Alkaline Phosphatase 56 U/L (45-117) 01/21/20 05:40 Creatine Kinase 98 U/L (26-308) 01/20/20 19:15 Troponin I 0.02 ng/ml (0.00-0.05) 01/20/20 19:15 Total Protein 7.0 g/dl (6.4-8.2) 01/21/20 05:40 Albumin 3.5 g/dl (3.4-5.0) 01/21/20 05:40 Influenza A (Rapid) Negative (Negative) 01/20/20 20:00 Influenza B (Rapid) Negative (Negative) 01/20/20 20:00 RSV Rapid Negative (Negative) 01/21/20 07:19 Active Medications Generic Name Dose Route Start Last Admin Trade Name Freq PRN Reason Stop Dose Admin Acetaminophen 650 mg 01/20/20 22:01 01/21/20 10:13 Tylenol - PO 650 mg Q4H PRN Administration FEVER Amlodipine Besylate 5 mg 01/21/20 10:30 01/21/20 12:38 Norvasc - PO 5 mg DAILY VAL Administration Apixaban 5 mg 01/21/20 10:00 01/21/20 10:04 Eliquis - PO 5 mg BID VAL Administration Lactated Ringer's 1,000 mls @ 100 mls/hr 01/20/20 22:15 01/21/20 10:04 Lactated Ringers Solution IV 100 mls/hr ASDIR VAL Administration Azithromycin 500 mg in 250 mls @ 250 mls/hr 01/21/20 10:00 01/21/20 10:04 Zithromax 500mg Ivpb (Pre-Docked) IVPB 250 mls/hr DAILY VAL Administration Piperacillin Sod/Tazobactam 50 mls @ 100 mls/hr 01/21/20 13:45 01/21/20 17:43 Sod 3.375 gm/ Dextrose IVPB 100 mls/hr Q8H-IV VAL Administration Protocol Insulin Aspart 0 vial 01/21/20 07:00 01/21/20 17:42 Novolog Vial Sliding Scale - SQ Not Given ACHS [facility] Protocol Ondansetron HCl 4 mg 01/21/20 04:15 01/21/20 17:47 Zofran Injection IVPUSH Not Given Q6H VAL Oseltamivir Phosphate 75 mg 01/21/20 12:30 01/21/20 14:29 Tamiflu - PO 01/26/20 12:29 75 mg BID VAL Administration Rosuvastatin Calcium 20 mg 01/21/20 22:00 Crestor - PO HS VAL Tamsulosin HCl 0.4 mg 01/21/20 08:30 01/21/20 10:04 Flomax - PO 0.4 mg DAILY@0830 VAL Administration ASSESSMENT/PLAN: 79M w/ PMH of HTN, HLD, DM and chronic lymphocytic thyroiditis, presents to the ED for generalized weakness, fatigue and persistent cough admitted for presumptive Covid Sepsis 2/2 CAP; - on admission Febrile 102.2, HR 112, WBC 18.4. Initial 92% on RA. -c/w tamiflu , azithro, zosyn - chest CT reviewed -pending results from Covid screen - pending RSV panel, Flu negative . pending cultures. pending legionella -Tylenol 650 Q4H PO PRN for fever, Zofran 4 Q6H IVP PRN for nausea, IVF Recent Onset Afib -Cont home meds: Eliquis 5 BID - will re-eval for possible rate control, will continue to monitor HR HTN: - will hold HCTZ due to sepsis , start norvasc 5 daily HLD: - Cont Crestor 20 DM: - BGM/ISS ACHS. DVT Ppx: -Eliquis 5 bid FEN -LR @ 100 -Diabetic diet Dispo: med-surg Visit type - Emergency Visit Emergency Visit: No - New Patient This patient is new to me today: No - Critical Care Critical Care patient: No - Discharge Referral Referred to [facility] Med P.C.: No ATTENDING PHYSICIAN STATEMENT I saw and evaluated the patient. I reviewed the resident's note and discussed the case with the resident. I agree with the resident's findings and plan as documented. SUBJECTIVE: OBJECTIVE: ASSESSMENT AND PLAN:
[2020-01-21] MEDS: ROSUVASTATIN CA 20 MG TABLET (FP) PO SCH (22:11)
[2020-01-21] MEDS ORDERED: DOCUSATE SODIUM 100 MG CAPSULE (FP) PO ONE (22:36)
[2020-01-22] MEDS ORDERED: DEXTROSE 5%-WATER - 50 ML IVPB ONE ×3 (01:38→16:45)
[2020-01-22] MEDS ORDERED: PIPERACILLIN/TAZOBACTAM 3.375 GM VIAL IVPB ONE ×3 (01:38→16:45)
[2020-01-22] MEDS: PIPERACILLIN/TAZOB 3.375 GM 3.375 GM in DEXTROSE 5%-WATER - 50 ML IVPB SCH ×3 (01:41→17:01)
[2020-01-22] MEDS: ONDANSETRON 4 MG/2 ML VIAL IVPUSH SCH (04:08)
[2020-01-22] MEDS: INSULIN SLIDING SCALE (NOVOLOG) 1 VIAL SQ SCH ×4 (06:47→22:38)
[2020-01-22] MEDS ORDERED: ONDANSETRON 4 MG/2 ML VIAL IVPUSH PRN (08:24)
[2020-01-22 09:08] LABS: HEMATOCRIT 40.9 % (35.4-49); HEMOGLOBIN 13.9 GM/dL (11.7-16.9); MCH 27.8 pg (25.7-33.7); MCHC 33.9 g/dl (32.0-35.9); MEAN PLT VOLUME 8.2 fl (7.5-11.1); PLATELET COUNT 205 K/MM3 (134-434); RBC 4.99 M/mm3 (4.00-5.60); RDW 14.4 % (11.9-15.9); WHITE BLOOD COUNT 7.5 K/mm3 (4.0-10.0)
--- NOTE | 2020-01-22 09:09 | PN ---
Teaching Attending Note Name of Resident: Sarah Rivera ATTENDING PHYSICIAN STATEMENT I saw and evaluated the patient. I reviewed the resident's note and discussed the case with the resident. I agree with the resident's findings and plan as documented. SUBJECTIVE: Patient is c/o having shortness of breath. patient is on isolation. No hx of asthma as per patient, never had a breathing issues. OBJECTIVE: Vital Signs Temperature 98.4 F 01/21/20 22:27 Pulse Rate 86 01/21/20 22:27 Respiratory Rate 20 01/21/20 22:27 Blood Pressure 142/82 01/21/20 22: O2 Sat by Pulse Oximetry (%) 94 L 01/21/20 10:29 GENERAL: The patient is awake, alert, and fully oriented, in no acute distress. HEAD: Normal with no signs of trauma. EYES: PERRL, extraocular movements intact, sclera anicteric, conjunctiva clear. ENT: Ears normal, oropharynx clear without exudates, moist mucous membranes. NECK: Trachea midline, full range of motion, supple. LUNGS:decreased BS BL , +wheezing, bl, no crackles, no accessory muscle use. HEART: Regular rate and rhythm, S1, S2 without murmur, rub or gallop. ABDOMEN: Soft, nontender, nondistended, normoactive bowel sounds, no guarding, no rebound, no hepatosplenomegaly, no masses. EXTREMITIES: 2+ pulses, warm, well-perfused, no edema. NEUROLOGICAL: Cranial nerves II through XII grossly intact. Normal speech, gait not observed. PSYCH: Normal mood, normal affect. SKIN: Warm, dry, normal turgor, no rashes or lesions noted CBCD WBC 12.6 K/mm3 (4.0-10.0) H 01/21/20 05:40 RBC 5.02 M/mm3 (4.00-5.60) 01/21/20 05:40 Hgb 13.8 GM/dL (11.7-16.9) 01/21/20 05:40 Hct 40.6 % (35.4-49) 01/21/20 05:40 MCV 80.8 fl (80-96) 01/21/20 05:40 MCHC 34.1 g/dl (32.0-35.9) 01/21/20 05:40 RDW 14.6 % (11.9-15.9) 01/21/20 05:40 Plt Count 210 K/MM3 (134-434) 01/21/20 05:40 MPV 8.3 fl (7.5-11.1) 01/21/20 05:40 CMP Sodium 134 mmol/L (136-145) L 01/21/20 05:40 Potassium 3.6 mmol/L (3.5-5.1) 01/21/20 05:40 Chloride 96 mmol/L (98-107) L 01/21/20 05:40 Carbon Dioxide 28 mmol/L (21-32) 01/21/20 05:40 Anion Gap 10 MMOL/L (8-16) 01/21/20 05:40 BUN 11.4 mg/dL (7-18) 01/21/20 05:40 Creatinine 0.9 mg/dL (0.55-1.3) 01/21/20 05:40 Random Glucose 148 mg/dL (74-106) H 01/21/20 05:40 Calcium 8.5 mg/dL (8.5-10.1) 01/21/20 05:40 Total Bilirubin 1.4 mg/dL (0.2-1) H 01/21/20 05:40 AST 13 U/L (15-37) L 01/21/20 05:40 ALT 20 U/L (13-61) 01/21/20 05:40 Alkaline Phosphatase 56 U/L (45-117) 01/21/20 05:40 Total Protein 7.0 g/dl (6.4-8.2) 01/21/20 05:40 Albumin 3.5 g/dl (3.4-5.0) 01/21/20 05:40 CARDIAC ENZYMES Creatine Kinase 98 U/L (26-308) 01/20/20 19:15 Troponin I 0.02 ng/ml (0.00-0.05) 01/20/20 19:15 Current Medications Generic Name Dose Route Start Last Admin Trade Name Freq PRN Reason Stop Dose Admin Acetaminophen 650 mg 01/20/20 22:01 01/21/20 10:13 Tylenol - PO 650 mg Q4H PRN Administration FEVER Amlodipine Besylate 5 mg 01/21/20 10:30 01/21/20 12:38 Norvasc - PO 5 mg DAILY VAL Administration Apixaban 5 mg 01/21/20 10:00 01/21/20 22:11 Eliquis - PO 5 mg BID VAL Administration Docusate Sodium 100 mg 01/22/20 10:00 Colace - PO DAILY [facility] Lactated Ringer's 1,000 mls @ 100 mls/hr 01/20/20 22:15 01/21/20 22:31 Lactated Ringers Solution IV Not Given ASDIR VAL Azithromycin 500 mg in 250 mls @ 250 mls/hr 01/21/20 10:00 01/21/20 10:04 Zithromax 500mg Ivpb (Pre-Docked) IVPB 250 mls/hr DAILY VAL Administration Piperacillin Sod/Tazobactam 50 mls @ 100 mls/hr 01/21/20 13:45 01/22/20 01:41 Sod 3.375 gm/ Dextrose IVPB 100 mls/hr Q8H-IV VAL Administration Protocol Insulin Aspart 0 vial 01/21/20 07:00 01/22/20 06:47 Novolog Vial Sliding Scale - SQ Not Given ACHS [facility] Protocol Ondansetron HCl 4 mg 01/22/20 08:24 Zofran Injection IVPUSH Q6H PRN NAUSEA Oseltamivir Phosphate 75 mg 01/21/20 12:30 01/21/20 22:11 Tamiflu - PO 01/26/20 12:29 75 mg BID VAL Administration Polyethylene Glycol 17 gm 01/22/20 10:00 Miralax (For Daily Use) - PO DAILY [facility] Rosuvastatin Calcium 20 mg 01/21/20 22:00 01/21/20 22:11 Crestor - PO 20 mg HS [facility] Administration Senna 1 tab 01/22/20 22:00 Senna - PO HS VAL Tamsulosin HCl 0.4 mg 01/21/20 08:30 01/21/20 10:04 Flomax - PO 0.4 mg DAILY@0830 VAL Administration Home Medications Medication Instructions Recorded Hydrochlorothiazide [Hctz -] 25 mg PO DAILY 04/26/12 Rosuvastatin Calcium [Crestor] 20 mg PO DAILY 04/26/12 Silodosin [Rapaflo] 1 cap PO DAILY 05/04/18 metFORMIN HCL [Metformin HCl] 2 tab PO DAILY 08/04/18 Apixaban [Eliquis] 5 mg PO BID #60 tablet 01/18/20 Microbiology 01/20/20 19:15 Blood - Peripheral Venous Blood Culture - Preliminary NO GROWTH OBTAINED AFTER 24 HOURS, INCUBATION TO CONTINUE FOR 4 DAYS. 01/20/20 19:15 Blood - Peripheral Venous Blood Culture - Preliminary NO GROWTH OBTAINED AFTER 24 HOURS, INCUBATION TO CONTINUE FOR 4 DAYS. ASSESSMENT AND PLAN: Mr. Preston is a pleasant 79 y/o gentleman with h/o HTN, DM, lymphocytic thyroiditis, and HLP , and recent hospitalization for new onset A fib . he presented with fatigue and SOB and was found to have fever . #Sepsis: unknown source , r/o coronavirus, was started on tamiflu for possible Inluenza. CXR: clear #acute leukocytosis Rapid flu is neg. chest CT ordered: tiny pleural based nodule in the right lower and left lower lobe which are nonspecific. the rest of the lung is clear. continue tamiflu empirically for now. Respiratory viral panel was send pending Nasopharyngeal and oropharyngeal swabs were sent fro testing for COVID -19. ER staff spoke to [facility] , waiting for the result, Id is on the case # Recent diagnosis of A fib; on eliquis continue. # HTN with hypertensive urgency. BP is better controlled now , added norvasc #Acute hyponatremia : hold HCTZ # H/o DM : cont SSI. DVT PX: Add heparin SQ discussed with Id
[2020-01-22 09:27] LABS: BLOOD UREA NITROGEN 14.2 mg/dL (7-18); CALCIUM 8.6 mg/dL (8.5-10.1); MAGNESIUM 2.2 mg/dL (1.8-2.4); PHOSPHOROUS 2.9 mg/dL (2.5-4.9); POTASSIUM 3.9 mmol/L (3.5-5.1)
[2020-01-22] MEDS ORDERED: PT OWN MED DRAWER 7, Y5N ONE ×2 (09:47→22:23)
[2020-01-22] MEDS: DOCUSATE SODIUM 100 MG CAPSULE (FP) PO SCH (09:51)
[2020-01-22] MEDS: TAMSULOSIN HCL 0.4 MG CAP PO SCH (09:51)
[2020-01-22] MEDS: OSELTAMIVIR PHOSPHATE 75 MG CAPSULE PO SCH ×2 (09:52→22:38)
[2020-01-22] MEDS: APIXABAN 5 MG TABLET PO SCH ×2 (09:52→22:38)
[2020-01-22] MEDS: POLYETHYLENE GLYCOL 3350 119 GM BTL PO SCH (09:52)
[2020-01-22] MEDS: amLODIPine BESYLATE 5 MG TABLET (FP) PO SCH (09:52)
--- NOTE | 2020-01-22 10:25 | PN ---
Physical Exam: SUBJECTIVE: Pt was not seen or examined by me. OBJECTIVE: Vital Signs Period Temp Pulse Resp BP Sys/Crawford Pulse Ox Last 24 Hr 98.4 F-99.2 F 86-88 18-20 140-183/80-97 94 Laboratory Results - last 24 hr 01/21/20 01/22/20 01/22/20 22:04 06:35 08:30 WBC 7.5 RBC 4.99 Hgb 13.9 Hct 40.9 MCV 82.0 MCH 27.8 MCHC 33.9 RDW 14.4 Plt Count 205 MPV 8.2 Sodium Potassium Chloride Carbon Dioxide Anion Gap BUN Creatinine Est GFR (CKD-EPI)AfAm Est GFR (CKD-EPI)NonAf POC Glucometer 132 130 Random Glucose Calcium Phosphorus Magnesium RSV Rapid 01/22/20 08:30 WBC RBC Hgb Hct MCV MCH MCHC RDW Plt Count MPV Sodium 138 Potassium 3.9 Chloride 101 Carbon Dioxide 32 Anion Gap 5 L BUN 14.2 Creatinine 1.0 Est GFR (CKD-EPI)AfAm 83.77 Est GFR (CKD-EPI)NonAf 72.28 POC Glucometer Random Glucose 126 H Calcium 8.6 Phosphorus 2.9 Magnesium 2.2 RSV Rapid Active Medications Generic Name Dose Route Start Last Admin Trade Name Freq PRN Reason Stop Dose Admin Acetaminophen 650 mg 01/20/20 22:01 01/21/20 10:13 Tylenol - PO 650 mg Q4H PRN Administration FEVER Amlodipine Besylate 5 mg 01/21/20 10:30 01/22/20 09:52 Norvasc - PO 5 mg DAILY VAL Administration Apixaban 5 mg 01/21/20 10:00 01/22/20 09:52 Eliquis - PO 5 mg BID VAL Administration Docusate Sodium 100 mg 01/22/20 10:00 01/22/20 09:51 Colace - PO 100 mg DAILY VAL Administration Lactated Ringer's 1,000 mls @ 100 mls/hr 01/20/20 22:15 01/21/20 22:31 Lactated Ringers Solution IV Not Given ASDIR VAL Azithromycin 500 mg in 250 mls @ 250 mls/hr 01/21/20 10:00 01/21/20 10:04 Zithromax 500mg Ivpb (Pre-Docked) IVPB 250 mls/hr DAILY VAL Administration Piperacillin Sod/Tazobactam 50 mls @ 100 mls/hr 01/21/20 13:45 01/22/20 09:52 Sod 3.375 gm/ Dextrose IVPB 100 mls/hr Q8H-IV VAL Administration Protocol Insulin Aspart 0 vial 01/21/20 07:00 01/22/20 06:47 Novolog Vial Sliding Scale - SQ Not Given ACHS VAL Protocol Ondansetron HCl 4 mg 01/22/20 08:24 Zofran Injection IVPUSH Q6H PRN NAUSEA Oseltamivir Phosphate 75 mg 01/21/20 12:30 01/22/20 09:52 Tamiflu - PO 01/26/20 12:29 75 mg BID VAL Administration Polyethylene Glycol 17 gm 01/22/20 10:00 01/22/20 09:52 Miralax (For Daily Use) - PO 17 grams DAILY VAL Administration Rosuvastatin Calcium 20 mg 01/21/20 22:00 01/21/20 22:11 Crestor - PO 20 mg HS VAL Administration Senna 1 tab 01/22/20 22:00 Senna - PO HS VAL Tamsulosin HCl 0.4 mg 01/21/20 08:30 01/22/20 09:51 Flomax - PO 0.4 mg DAILY@0830 VAL Administration ASSESSMENT/PLAN: 79M w/ PMH of HTN, HLD, DM and chronic lymphocytic thyroiditis, presents to the ED for generalized weakness, fatigue and persistent cough admitted for presumptive Covid Sepsis 2/2 CAP vs viral infection vs covid - on admission Febrile 102.2, HR 112, WBC 18.4. Initial 92% on RA. -c/w tamiflu , azithro, zosyn - chest CT reviewed -pending results from Covid screen - pending RSV panel, Flu negative . pending cultures. pending legionella -Tylenol 650 Q4H PO PRN for fever, Zofran 4 Q6H IVP PRN for nausea, IVF Recent Onset Afib -Cont home meds: Eliquis 5 BID - will re-eval for possible rate control HTN: - will hold HCTZ due to sepsis , c/w norvasc 5 daily HLD: - c/w Crestor 20 DM: - BGM/ISS ACHS. DVT Ppx: -Eliquis 5 bid FEN -Diabetic diet Dispo: med-surg ATTENDING PHYSICIAN STATEMENT I saw and evaluated the patient. I reviewed the resident's note and discussed the case with the resident. I agree with the resident's findings and plan as documented. SUBJECTIVE: OBJECTIVE: ASSESSMENT AND PLAN:
[2020-01-22] MEDS: AZITHROMYCIN IVPB 500 MG/250 ML BAG IVPB SCH (11:25)
--- NOTE | 2020-01-22 13:38 | PN ---
Progress Note, Physician History of Present Illness: still coughing with sputum production feels little better though - Current Medication List Current Medications: Active Medications Acetaminophen (Tylenol -) 650 mg PO Q4H PRN PRN Reason: FEVER Last Admin: 01/21/20 10:13 Dose: 650 mg Documented by: Amlodipine Besylate (Norvasc -) 5 mg PO DAILY [facility] Last Admin: 01/22/20 09:52 Dose: 5 mg Documented by: Apixaban (Eliquis -) 5 mg PO BID [facility] Last Admin: 01/22/20 09:52 Dose: 5 mg Documented by: Docusate Sodium (Colace -) 100 mg PO DAILY [facility] Last Admin: 01/22/20 09:51 Dose: 100 mg Documented by: Lactated Ringer's (Lactated Ringers Solution) 1,000 mls @ 100 mls/hr IV ASDIR [facility] Last Admin: 01/21/20 22:31 Dose: Not Given Documented by: Azithromycin (Zithromax 500mg Ivpb (Pre-Docked)) 500 mg in 250 mls @ 250 mls/hr IVPB DAILY [facility] Last Admin: 01/22/20 11:25 Dose: 250 mls/hr Documented by: Piperacillin Sod/Tazobactam (Sod 3.375 gm/ Dextrose) 50 mls @ 100 mls/hr IVPB Q8H-IV [facility]; Protocol Last Admin: 01/22/20 09:52 Dose: 100 mls/hr Documented by: Insulin Aspart (Novolog Vial Sliding Scale -) 0 vial SQ ACHS [facility]; Protocol Last Admin: 01/22/20 11:33 Dose: Not Given Documented by: Ondansetron HCl (Zofran Injection) 4 mg IVPUSH Q6H PRN PRN Reason: NAUSEA Oseltamivir Phosphate (Tamiflu -) 75 mg PO BID [facility] Stop: 01/26/20 12:29 Last Admin: 01/22/20 09:52 Dose: 75 mg Documented by: Polyethylene Glycol (Miralax (For Daily Use) -) 17 gm PO DAILY [facility] Last Admin: 01/22/20 09:52 Dose: 17 grams Documented by: Rosuvastatin Calcium (Crestor -) 20 mg PO HS [facility] Last Admin: 01/21/20 22:11 Dose: 20 mg Documented by: Senna (Senna -) 1 tab PO [facility] Tamsulosin HCl (Flomax -) 0.4 mg PO DAILY@0830 [facility] Last Admin: 01/22/20 09:51 Dose: 0.4 mg Documented by: - Objective Vital Signs: Vital Signs Temperature 98.4 F 01/21/20 22:27 Pulse Rate 86 01/21/20 22:27 Respiratory Rate 20 01/21/20 22:27 Blood Pressure 142/82 01/21/20 22:27 O2 Sat by Pulse Oximetry (%) 94 L 01/21/20 10:29 Constitutional: Yes: No Distress, Calm Cardiovascular: Yes: S1, S2 Respiratory: Yes: Regular, On Nasal O2, Poor Air Entry, Rhonchi Gastrointestinal: Yes: Normal Bowel Sounds, Soft Musculoskeletal: Yes: WNL Extremities: Yes: WNL Neurological: Yes: Alert, Oriented Psychiatric: Yes: Alert, Oriented Labs: CBC, BMP 01/22/20 08:30 01/22/20 08:30 Assessment/Plan 79M w/ pmhx of HTN, HLD, DM and chronic lymphocytic thyroiditis, presents to the ED for generalized weakness, fatigue and persistent cough admitted for presumptive patient also being admitted for r/o coronovirus sepsis [neumonia cough afin weakness chills plan continue abx res[ support sputum cx await for all results rest as per the team
[2020-01-22] MEDS ORDERED: LATANOPROST 0.005% OPHTH SOLN 2.5ML BOTTLE OU SCH (22:00)
[2020-01-22] MEDS ORDERED: BRIMONIDINE TARTRATE 0.15% OPHTHALMIC 5 ML BOTTLE OU SCH (22:00)
[2020-01-22] MEDS ORDERED: PATIENT'S OWN MEDICATION (NON-FORMULARY) (Dorzolamide/Timolol/Pf [Timolol 0.5%-Dorzolamide OU SCH (22:00)
[2020-01-22] MEDS: ROSUVASTATIN CA 20 MG TABLET (FP) PO SCH (22:38)
[2020-01-22] MEDS: SENNOSIDES 8.6MG TABLET (FP) PO SCH (22:38)
[2020-01-22] MEDS: TIMOLOL 0.5% OPHTHALMIC SOL 5 ML BOTTLE OU SCH (22:38)
[2020-01-22] MEDS: DORZOLAMIDE 2% HCL OPHTHALMIC SOLUTION 10 ML BOTTLE OU SCH (22:39)
[2020-01-22] MEDS: LACTATED RINGERS SOLUTION 1,000 ML IV SCH (22:39)
[2020-01-23] MEDS: PIPERACILLIN/TAZOB 3.375 GM 3.375 GM in DEXTROSE 5%-WATER - 50 ML IVPB SCH ×2 (01:47→09:19)
[2020-01-23] MEDS ORDERED: PIPERACILLIN/TAZOBACTAM 3.375 GM VIAL IVPB ONE ×2 (01:59→09:00)
[2020-01-23] MEDS ORDERED: DEXTROSE 5%-WATER - 50 ML IVPB ONE ×2 (01:59→09:00)
[2020-01-23] MEDS: LACTATED RINGERS SOLUTION 1,000 ML IV SCH (03:47)
[2020-01-23] MEDS: INSULIN SLIDING SCALE (NOVOLOG) 1 VIAL SQ SCH ×4 (07:03→23:00)
[2020-01-23] MEDS ORDERED: PT OWN MED DRAWER 7, Y5N ONE ×2 (09:00→18:45)
[2020-01-23] MEDS: TAMSULOSIN HCL 0.4 MG CAP PO SCH (09:18)
[2020-01-23] MEDS: OSELTAMIVIR PHOSPHATE 75 MG CAPSULE PO SCH (09:19)
[2020-01-23] MEDS: APIXABAN 5 MG TABLET PO SCH ×2 (09:19→22:52)
[2020-01-23] MEDS: amLODIPine BESYLATE 5 MG TABLET (FP) PO SCH (09:19)
[2020-01-23] MEDS: DOCUSATE SODIUM 100 MG CAPSULE (FP) PO SCH (09:19)
[2020-01-23] MEDS: AZITHROMYCIN IVPB 500 MG/250 ML BAG IVPB SCH (09:19)
[2020-01-23] MEDS: POLYETHYLENE GLYCOL 3350 119 GM BTL PO SCH ×2 (09:21→09:50)
[2020-01-23] MEDS: DORZOLAMIDE 2% HCL OPHTHALMIC SOLUTION 10 ML BOTTLE OU SCH ×2 (09:21→22:59)
[2020-01-23] MEDS: TIMOLOL 0.5% OPHTHALMIC SOL 5 ML BOTTLE OU SCH ×2 (09:21→22:59)
--- NOTE | 2020-01-23 12:03 | PN ---
Progress Note, Physician History of Present Illness: stable still complaining of sob sputum production - Current Medication List Current Medications: Active Medications Acetaminophen (Tylenol -) 650 mg PO Q4H PRN PRN Reason: FEVER Last Admin: 01/21/20 10:13 Dose: 650 mg Documented by: Amlodipine Besylate (Norvasc -) 5 mg PO DAILY [facility] Last Admin: 01/23/20 09:19 Dose: 5 mg Documented by: Apixaban (Eliquis -) 5 mg PO BID [facility] Last Admin: 01/23/20 09:19 Dose: 5 mg Documented by: Docusate Sodium (Colace -) 100 mg PO DAILY [facility] Last Admin: 01/23/20 09:19 Dose: 100 mg Documented by: Dorzolamide HCl (Trusopt 2%) 1 drop OU BID [facility] Last Admin: 01/23/20 09:21 Dose: 1 drop Documented by: Lactated Ringer's (Lactated Ringers Solution) 1,000 mls @ 100 mls/hr IV ASDIR [facility] Last Admin: 01/23/20 03:47 Dose: 100 mls/hr Documented by: Insulin Aspart (Novolog Vial Sliding Scale -) 0 vial SQ ACHS [facility]; Protocol Last Admin: 01/23/20 11:59 Dose: Not Given Documented by: Ondansetron HCl (Zofran Injection) 4 mg IVPUSH Q6H PRN PRN Reason: NAUSEA Oseltamivir Phosphate (Tamiflu -) 75 mg PO BID [facility] Stop: 01/26/20 12:29 Last Admin: 01/23/20 09:19 Dose: 75 mg Documented by: Polyethylene Glycol (Miralax (For Daily Use) -) 17 gm PO DAILY [facility] Last Admin: 01/23/20 09:50 Dose: Not Given Documented by: Rosuvastatin Calcium (Crestor -) 20 mg PO [facility] Last Admin: 01/22/20 22:38 Dose: 20 mg Documented by: Senna (Senna -) 1 tab PO [facility] Last Admin: 01/22/20 22:38 Dose: 1 tab Documented by: Tamsulosin HCl (Flomax -) 0.4 mg PO DAILY@0830 [facility] Last Admin: 01/23/20 09:18 Dose: 0.4 mg Documented by: Timolol Maleate (Timoptic 0.5%) 1 drop OU BID [facility] Last Admin: 01/23/20 09:21 Dose: 1 drop Documented by: - Objective Vital Signs: Vital Signs Temperature 98.2 F 01/22/20 22:00 Pulse Rate 86 01/22/20 22:00 Respiratory Rate 20 01/22/20 22:00 Blood Pressure 134/76 01/22/20 22:00 O2 Sat by Pulse Oximetry (%) 94 L 01/21/20 10:29 Constitutional: Yes: Calm, Mild Distress Cardiovascular: Yes: S1, S2 Respiratory: Yes: Regular, Poor Air Entry Gastrointestinal: Yes: Normal Bowel Sounds, Soft Musculoskeletal: Yes: WNL Extremities: Yes: WNL Neurological: Yes: Alert, Oriented Psychiatric: Yes: Alert, Oriented Labs: CBC, BMP 01/22/20 08:30 01/22/20 08:30 Assessment/Plan 79M w/ pmhx of HTN, HLD, DM and chronic lymphocytic thyroiditis, presents to the ED for generalized weakness, fatigue and persistent cough admitted for presumptive patient also being admitted for r/o coronovirus sepsis [neumonia cough afin weakness chills plan sputum cx result noted will change abx to oral zithromax for 3 more days augmentin for 5 more days
--- NOTE | 2020-01-23 14:38 | CON.PULM ---
Consult Consult Specialty:: PULMONARY Referred by:: Dr Banerjee Reason for Consultation:: shortness of breath - History of Present Illness Chief Complaint: shortness of breath History of Present Illness: 79yo male with h/o HTN, DM, hyperlipidemia, chronic lymphocytic thyroiditis who was admitted with worsening shortness of breath and weakness. Reports a cough productive of clear sputum and wheezing. No subjective fevers but was febrile to 102.2 on admission. No nausea, vomiting. Denies history of asthma or COPD. He is a former smoker, started as a teenager, smoked about 1 PPD until about 15 years ago. 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 - History Source History Provided By: Patient, Medical Record Limitations to Obtaining History: No Limitations - Past Medical History Cardio/Vascular: Yes: HTN, Hyperlipdemia Endocrine: Yes: Diabetes Mellitus - Alcohol/Substance Use Hx Alcohol Use: No - Smoking History Smoking history: Never smoked Have you smoked in the past 12 months: No Home Medications - Allergies Allergies/Adverse Reactions: Allergies Allergy/AdvReac Type Severity Reaction Status Date / Time No Known Allergies Allergy Verified 08/04/18 13:07 - Home Medications Home Medications: Ambulatory Orders Hydrochlorothiazide [Hctz -] 25 mg PO DAILY 04/26/12 Rosuvastatin Calcium [Crestor] 20 mg PO DAILY 04/26/12 Silodosin [Rapaflo] 1 cap PO DAILY 05/04/18 metFORMIN HCL [Metformin HCl] 2 tab PO DAILY 08/04/18 Apixaban [Eliquis] 5 mg PO BID #60 tablet 01/18/20 Bimatoprost [Lumigan] 1 drop OU HS 01/22/20 Brimonidine Tartrate [Alphagan 0.15% -] 1 drop OU TID 01/22/20 Dorzolamide/Timolol/Pf [Timolol 0.5%-Dorzolamide 2%] 1 drop OU BID 01/22/20 Review of Systems - Review of Systems Constitutional: reports: Weakness Eyes: denies: Recent Change in Vision HENT: denies: Nasal Congestion, Throat Pain Neck: denies: Stiffness, Tenderness Cardiovascular: reports: Shortness of Breath. denies: Chest Pain, Edema Respiratory: reports: Cough, SOB, Wheezing. denies: Hemoptysis Gastrointestinal: denies: Abdominal Pain, Nausea, Vomiting Genitourinary: denies: Dysuria, Hematuria Neurological: denies: Dizziness, Headache Endocrine: denies: Unexplained Weight Loss Physical Exam Vital Sings: Vital Signs Temperature 98.2 F 01/22/20 22:00 Pulse Rate 86 01/22/20 22:00 Respiratory Rate 01/22/20 22:00 Blood Pressure 134/76 01/22/20 22:00 O2 Sat by Pulse Oximetry (%) 94 L 01/21/20 10:29 Constitutional: Yes: Calm Eyes: Yes: Conjunctiva Clear, EOM Intact HENT: Yes: Atraumatic, Normocephalic Neck: Yes: Supple, Trachea Midline Cardiovascular: Yes: Regular Rate and Rhythm Respiratory: Yes: Rhonchi, Wheezes ...Clubbing: No Gastrointestinal: Yes: Normal Bowel Sounds, Soft. No: Tenderness Edema: No Neurological: Yes: Alert, Oriented Labs: CBC, BMP 01/22/20 08:30 01/22/20 08:30 Imaging - Results Chest X-ray: Report Reviewed, Image Reviewed Cat Scan: Report Reviewed, Image Reviewed (bilateral pleural based nodules, no infiltrates) Assessment/Plan Viral Syndrome Acute Bronchospasm Likely underlying COPD HTN DM Hyperlipidemia Lung Nodules - start IV medrol - inhaled bronchodilators - O2 to keep Spo2 >90% - f/u serologies - outpt PFTs and f/u of lung nodules - DVT prophylaxis Thank you for this consult Eleuterio Samuel MD
[2020-01-23] MEDS ORDERED: ALBUTEROL SO4 HFA INHALER IH PRN (14:40)
[2020-01-23] MEDS: AMOX TR/POT CLAV 875MG/125MG TABLETS (FP) PO SCH (17:47)
[2020-01-23] MEDS: methylPREDNISolone NA SUCC 40 MG/1 ML VIAL IVPUSH SCH (17:47)
--- NOTE | 2020-01-23 20:15 | PN ---
Progress Note (short form) - Note Progress Note: Patient is feeling worse, more short of breath. Vital Signs Temperature 98.3 F 01/23/20 10:00 Pulse Rate 88 01/23/20 10:00 Respiratory Rate 20 01/23/20 10:00 Blood Pressure 140/74 01/23/20 10:00 O2 Sat by Pulse Oximetry (%) 94 L 01/21/20 10:29 GENERAL: The patient is awake, alert, and fully oriented, in no acute distress. HEAD: Normal with no signs of trauma. EYES: PERRL, extraocular movements intact, sclera anicteric, conjunctiva clear. ENT: Ears normal, oropharynx clear without exudates, moist mucous membranes. NECK: Trachea midline, full range of motion, supple. LUNGS: Breath sounds equal, clear to auscultation bilaterally, no wheezes, no crackles, no accessory muscle use. HEART: Regular rate and rhythm, S1, S2 without murmur, rub or gallop. ABDOMEN: Soft, nontender, nondistended, normoactive bowel sounds, no guarding, no rebound, no hepatosplenomegaly, no masses. EXTREMITIES: 2+ pulses, warm, well-perfused, no edema. NEUROLOGICAL: Cranial nerves II through XII grossly intact. Normal speech, gait is stable PSYCH: Normal mood, normal affect. SKIN: Warm, dry, normal turgor, no rashes or lesions noted CBCD WBC 7.5 K/mm3 (4.0-10.0) 01/22/20 08:30 RBC 4.99 M/mm3 (4.00-5.60) 01/22/20 08:30 Hgb 13.9 GM/dL (11.7-16.9) 01/22/20 08:30 Hct 40.9 % (35.4-49) 01/22/20 08:30 MCV 82.0 fl (80-96) 01/22/20 08:30 MCHC 33.9 g/dl (32.0-35.9) 01/22/20 08:30 RDW 14.4 % (11.9-15.9) 01/22/20 08:30 Plt Count 205 K/MM3 (134-434) 01/22/20 08:30 MPV 8.2 fl (7.5-11.1) 01/22/20 08:30 CMP Sodium 138 mmol/L (136-145) 01/22/20 08:30 Potassium 3.9 mmol/L (3.5-5.1) 01/22/20 08:30 Chloride 101 mmol/L (98-107) 01/22/20 08:30 Carbon Dioxide 32 mmol/L (21-32) 01/22/20 08:30 Anion Gap 5 MMOL/L (8-16) L 01/22/20 08:30 BUN 14.2 mg/dL (7-18) 01/22/20 08:30 Creatinine 1.0 mg/dL (0.55-1.3) 01/22/20 08:30 Random Glucose 126 mg/dL (74-106) H 01/22/20 08:30 Calcium 8.6 mg/dL (8.5-10.1) 01/22/20 08:30 Total Bilirubin 1.4 mg/dL (0.2-1) H 01/21/20 05:40 AST 13 U/L (15-37) L 01/21/20 05:40 ALT 20 U/L (13-61) 01/21/20 05:40 Alkaline Phosphatase 56 U/L (45-117) 01/21/20 05:40 Total Protein 7.0 g/dl (6.4-8.2) 01/21/20 05:40 Albumin 3.5 g/dl (3.4-5.0) 01/21/20 05:40 CARDIAC ENZYMES Creatine Kinase 98 U/L (26-308) 01/20/20 19:15 Troponin I 0.02 ng/ml (0.00-0.05) 01/20/20 19:15 Current Medications Generic Name Dose Route Start Last Admin Trade Name Freq PRN Reason Stop Dose Admin Acetaminophen 650 mg 01/20/20 22:01 01/21/20 10:13 Tylenol - PO 650 mg Q4H PRN Administration FEVER Albuterol Sulfate 2 puff 01/23/20 14:40 Ventolin Hfa Inhaler - IH Q4H PRN SHORT OF BREATH/WHEEZING Amlodipine Besylate 5 mg 01/21/20 10:30 01/23/20 09:19 Norvasc - PO 5 mg DAILY [facility] Administration Amoxicillin/Clavulanate Potassium 1 tab 01/23/20 17:30 01/23/20 17:47 Augmentin - 875mg Tablet PO 1 tab BID@0800,1730 [facility] Administration Apixaban 5 mg 01/21/20 10:00 01/23/20 09:19 Eliquis - PO 5 mg BID [facility] Administration Budesonide/Formoterol Fumarate 2 puff 01/23/20 22:00 Symbicort 160/4.5mcg - IH BID [facility] Docusate Sodium 100 mg 01/22/20 10:00 01/23/20 09:19 Colace - PO 100 mg DAILY [facility] Administration Dorzolamide HCl 1 drop 01/22/20 22:00 01/23/20 09:21 Trusopt 2% OU 1 drop BID [facility] Administration Insulin Aspart 1 vial 01/23/20 12:35 01/23/20 17:48 Novolog Vial Sliding Scale - SQ Not Given ACHS [facility] Protocol Methylprednisolone Sodium Succinate 40 mg 01/23/20 18:00 01/23/20 17:47 Solu-Medrol - IVPUSH 40 mg Q8H-IV [facility] Administration Ondansetron HCl 4 mg 01/22/20 08:24 Zofran Injection IVPUSH Q6H PRN NAUSEA Oseltamivir Phosphate 75 mg 01/21/20 12:30 01/23/20 09:19 Tamiflu - PO 01/26/20 12:29 75 mg BID [facility] Administration Polyethylene Glycol 17 gm 01/22/20 10:00 01/23/20 09:50 Miralax (For Daily Use) - PO Not Given DAILY [facility] Rosuvastatin Calcium 20 mg 01/21/20 22:00 01/22/20 22:38 Crestor - PO 20 mg HS [facility] Administration Senna 1 tab 01/22/20 22:00 01/22/20 22:38 Senna - PO 1 tab HS [facility] Administration Tamsulosin HCl 0.4 mg 01/21/20 08:30 01/23/20 09:18 Flomax - PO 0.4 mg DAILY@0830 [facility] Administration Timolol Maleate 1 drop 01/22/20 22:00 01/23/20 09:21 Timoptic 0.5% OU 1 drop BID [facility] Administration Home Medications Medication Instructions Recorded Hydrochlorothiazide [Hctz -] 25 mg PO DAILY 04/26/12 Rosuvastatin Calcium [Crestor] 20 mg PO DAILY 06/14/12 Silodosin [Rapaflo] 1 cap PO DAILY 05/04/18 metFORMIN HCL [Metformin HCl] 2 tab PO DAILY 08/04/18 Apixaban [Eliquis] 5 mg PO BID #60 tablet 01/18/20 Microbiology 01/20/20 19:15 Blood - Peripheral Venous Blood Culture - Preliminary NO GROWTH OBTAINED AFTER 24 HOURS, INCUBATION TO CONTINUE FOR 4 DAYS. 01/20/20 19:15 Blood - Peripheral Venous Blood Culture - Preliminary NO GROWTH OBTAINED AFTER 24 HOURS, INCUBATION TO CONTINUE FOR 4 DAYS. ASSESSMENT AND PLAN: GENERAL: The patient is awake, alert, and fully oriented, in no acute distress. HEAD: Normal with no signs of trauma. EYES: PERRL, extraocular movements intact, sclera anicteric, conjunctiva clear. ENT: Ears normal, oropharynx clear without exudates, moist mucous membranes. NECK: Trachea midline, full range of motion, supple. LUNGS:decreased BS BL , +wheezing, bl, no crackles, no accessory muscle use. HEART: Regular rate and rhythm, S1, S2 without murmur, rub or gallop. ABDOMEN: Soft, nontender, nondistended, normoactive bowel sounds, no guarding, no rebound, no hepatosplenomegaly, no masses. EXTREMITIES: 2+ pulses, warm, well-perfused, no edema. NEUROLOGICAL: Cranial nerves II through XII grossly intact. Normal speech, gait not observed. PSYCH: Normal mood, normal affect. SKIN: Warm, dry, normal turgor, no rashes or lesions noted CBCD WBC 12.6 K/mm3 (4.0-10.0) H 01/21/20 05:40 RBC 5.02 M/mm3 (4.00-5.60) 01/21/20 05:40 Hgb 13.8 GM/dL (11.7-16.9) 01/21/20 05:40 Hct 40.6 % (35.4-49) 01/21/20 05:40 MCV 80.8 fl (80-96) 01/21/20 05:40 MCHC 34.1 g/dl (32.0-35.9) 01/21/20 05:40 RDW 14.6 % (11.9-15.9) 01/21/20 05:40 Plt Count 210 K/MM3 (134-434) 01/21/20 05:40 MPV 8.3 fl (7.5-11.1) 01/21/20 05:40 CMP Sodium 134 mmol/L (136-145) L 01/21/20 05:40 Potassium 3.6 mmol/L (3.5-5.1) 01/21/20 05:40 Chloride 96 mmol/L (98-107) L 01/21/20 05:40 Carbon Dioxide 28 mmol/L (21-32) 01/21/20 05:40 Anion Gap 10 MMOL/L (8-16) 01/21/20 05:40 BUN 11.4 mg/dL (7-18) 01/21/20 05:40 Creatinine 0.9 mg/dL (0.55-1.3) 01/21/20 05:40 Random Glucose 148 mg/dL (74-106) H 01/21/20 05:40 Calcium 8.5 mg/dL (8.5-10.1) 01/21/20 05:40 Total Bilirubin 1.4 mg/dL (0.2-1) H 01/21/20 05:40 AST 13 U/L (15-37) L 01/21/20 05:40 ALT 20 U/L (13-61) 01/21/20 05:40 Alkaline Phosphatase 56 U/L (45-117) 01/21/20 05:40 Total Protein 7.0 g/dl (6.4-8.2) 01/21/20 05:40 Albumin 3.5 g/dl (3.4-5.0) 01/21/20 05:40 CARDIAC ENZYMES Creatine Kinase 98 U/L (26-308) 01/20/20 19:15 Troponin I 0.02 ng/ml (0.00-0.05) 01/20/20 19:15 Current Medications Generic Name Dose Route Start Last Admin Trade Name Freq PRN Reason Stop Dose Admin Acetaminophen 650 mg 01/20/20 22:01 01/21/20 10:13 Tylenol - PO 650 mg Q4H PRN Administration FEVER Amlodipine Besylate 5 mg 01/21/20 10:30 01/21/20 12:38 Norvasc - PO 5 mg DAILY [facility] Administration Apixaban 5 mg 01/21/20 10:00 01/21/20 22:11 Eliquis - PO 5 mg BID [facility] Administration Docusate Sodium 100 mg 01/22/20 10:00 Colace - PO DAILY [facility] Lactated Ringer's 1,000 mls @ 100 mls/hr 01/20/20 22:15 01/21/20 22:31 Lactated Ringers Solution IV Not Given ASDIR [facility] Azithromycin 500 mg in 250 mls @ 250 mls/hr 01/21/20 10:00 01/21/20 10:04 Zithromax 500mg Ivpb (Pre-Docked) IVPB 250 mls/hr DAILY [facility] Administration Piperacillin Sod/Tazobactam 50 mls @ 100 mls/hr 01/21/20 13:45 01/22/20 01:41 Sod 3.375 gm/ Dextrose IVPB 100 mls/hr Q8H-IV [facility] Administration Protocol Insulin Aspart 0 vial 01/21/20 07:00 01/22/20 06:47 Novolog Vial Sliding Scale - SQ Not Given ACHS [facility] Protocol Ondansetron HCl 4 mg 01/22/20 08:24 Zofran Injection IVPUSH Q6H PRN NAUSEA Oseltamivir Phosphate 75 mg 01/21/20 12:30 01/21/20 22:11 Tamiflu - PO 01/26/20 12:29 75 mg BID [facility] Administration Polyethylene Glycol 17 gm 01/22/20 10:00 Miralax (For Daily Use) - PO DAILY [facility] Rosuvastatin Calcium 20 mg 01/21/20 22:00 01/21/20 22:11 Crestor - PO 20 mg HS [facility] Administration Senna 1 tab 01/22/20 22:00 Senna - PO HS [facility] Tamsulosin HCl 0.4 mg 01/21/20 08:30 01/21/20 10:04 Flomax - PO 0.4 mg DAILY@0830 [facility] Administration Home Medications Medication Instructions Recorded Hydrochlorothiazide [Hctz -] 25 mg PO DAILY 04/26/12 Rosuvastatin Calcium [Crestor] 20 mg PO DAILY 04/26/12 Silodosin [Rapaflo] 1 cap PO DAILY 05/04/18 metFORMIN HCL [Metformin HCl] 2 tab PO DAILY 08/04/18 Apixaban [Eliquis] 5 mg PO BID #60 tablet 01/18/20 Microbiology 01/20/20 19:15 Blood - Peripheral Venous Blood Culture - Preliminary NO GROWTH OBTAINED AFTER 24 HOURS, INCUBATION TO CONTINUE FOR 4 DAYS. 01/20/20 19:15 Blood - Peripheral Venous Blood Culture - Preliminary NO GROWTH OBTAINED AFTER 24 HOURS, INCUBATION TO CONTINUE FOR 4 DAYS. ASSESSMENT AND PLAN: Mr. Preston is a pleasant 79 y/o gentleman with h/o HTN, DM, lymphocytic thyroiditis, and HLP , and recent hospitalization for new onset A fib . he presented with fatigue and SOB and was found to have fever . #Sepsis: due to Viral Syndrome r/o coronavirus, was started on tamiflu for possible InFluenza. CXR: clear #acute leukocytosis Rapid flu is neg. chest CT ordered: tiny pleural based nodule in the right lower and left lower lobe which are nonspecific. the rest of the lung is clear. continue tamiflu empirically for now. Respiratory viral panel was send pending Nasopharyngeal and oropharyngeal swabs were sent fro testing for COVID -19. ER staff spoke to [facility] , waiting for the result, Id is on the case #Acute Bronchospasm possible due to COPD exacerbation, patient is smoker, as per pulm to start the patient on iv steroids, inhaled bronchodilators O2 to keep Spo2 >90% # Recent diagnosis of A fib; on eliquis continue. # HTN with hypertensive urgency. BP is better controlled now , added norvasc #Acute hyponatremia : hold HCTZ # H/o DM : cont SSI. # Lung Nodules: outpt PFTs and f/u of lung nodules- #Hyperlipidemia DVT PX: Add heparin SQ discussed with Id , discussed with pulmonary waiting for coronavirus report Visit type - Emergency Visit Emergency Visit: Yes ED Registration Date: 01/20/20 Care time: The patient presented to the Emergency Department on the above date and was hospitalized for further evaluation of their emergent condition. - New Patient This patient is new to me today: No - Critical Care Critical Care patient: No - Discharge Referral Referred to [facility] Med P.C.: No
[2020-01-23] MEDS: SENNOSIDES 8.6MG TABLET (FP) PO SCH (22:51)
[2020-01-23] MEDS: ROSUVASTATIN CA 20 MG TABLET (FP) PO SCH (22:51)
[2020-01-23] MEDS: BUDESONIDE/FORMETEROL FUMARATE 160/4.5 mcg INHALER IH SCH (22:52)
[2020-01-24] MEDS: methylPREDNISolone NA SUCC 40 MG/1 ML VIAL IVPUSH SCH ×3 (01:52→18:12)
[2020-01-24] MEDS: INSULIN SLIDING SCALE (NOVOLOG) 1 VIAL SQ SCH ×4 (06:02→22:00)
[2020-01-24] MEDS ORDERED: PT OWN MED DRAWER 7, Y5N ONE (08:30)
[2020-01-24] MEDS: BUDESONIDE/FORMETEROL FUMARATE 160/4.5 mcg INHALER IH SCH ×2 (09:12→22:02)
[2020-01-24] MEDS: DORZOLAMIDE 2% HCL OPHTHALMIC SOLUTION 10 ML BOTTLE OU SCH ×2 (09:12→22:03)
[2020-01-24] MEDS: AMOX TR/POT CLAV 875MG/125MG TABLETS (FP) PO SCH ×2 (09:13→18:13)
[2020-01-24] MEDS: DOCUSATE SODIUM 100 MG CAPSULE (FP) PO SCH (09:13)
[2020-01-24] MEDS: amLODIPine BESYLATE 5 MG TABLET (FP) PO SCH (09:13)
[2020-01-24] MEDS: APIXABAN 5 MG TABLET PO SCH ×2 (09:13→22:00)
[2020-01-24] MEDS: TIMOLOL 0.5% OPHTHALMIC SOL 5 ML BOTTLE OU SCH ×2 (09:13→22:03)
[2020-01-24] MEDS: TAMSULOSIN HCL 0.4 MG CAP PO SCH (09:13)
[2020-01-24] MEDS: POLYETHYLENE GLYCOL 3350 119 GM BTL PO SCH (09:14)
--- NOTE | 2020-01-24 12:40 | PN ---
Progress Note, Physician History of Present Illness: stable feels better still wheezing - Current Medication List Current Medications: Active Medications Acetaminophen (Tylenol -) 650 mg PO Q4H PRN PRN Reason: FEVER Last Admin: 01/21/20 10:13 Dose: 650 mg Documented by: Albuterol Sulfate (Ventolin Hfa Inhaler -) 2 puff IH Q4H PRN PRN Reason: SHORT OF BREATH/WHEEZING Amlodipine Besylate (Norvasc -) 5 mg PO DAILY [facility] Last Admin: 01/24/20 09:13 Dose: 5 mg Documented by: Amoxicillin/Clavulanate Potassium (Augmentin - 875mg Tablet) 1 tab PO BID@0800,1730 [facility] Last Admin: 01/24/20 09:13 Dose: 1 tab Documented by: Apixaban (Eliquis -) 5 mg PO BID [facility] Last Admin: 01/24/20 09:13 Dose: 5 mg Documented by: Budesonide/Formoterol Fumarate (Symbicort 160/4.5mcg -) 2 puff IH BID [facility] Last Admin: 01/24/20 09:12 Dose: 2 puff Documented by: Docusate Sodium (Colace -) 100 mg PO DAILY [facility] Last Admin: 01/24/20 09:13 Dose: 100 mg Documented by: Dorzolamide HCl (Trusopt 2%) 1 drop OU BID [facility] Last Admin: 01/24/20 09:12 Dose: 1 drop Documented by: Insulin Aspart (Novolog Vial Sliding Scale -) 1 vial SQ [facility]; Protocol Last Admin: 01/24/20 12:38 Dose: Not Given Documented by: Methylprednisolone Sodium Succinate (Solu-Medrol -) 40 mg IVPUSH Q8H-IV [facility] Last Admin: 01/24/20 09:14 Dose: 40 mg Documented by: Ondansetron HCl (Zofran Injection) 4 mg IVPUSH Q6H PRN PRN Reason: NAUSEA Polyethylene Glycol (Miralax (For Daily Use) -) 17 gm PO DAILY [facility] Last Admin: 01/24/20 09:14 Dose: 17 grams Documented by: Rosuvastatin Calcium (Crestor -) 20 mg PO [facility] Last Admin: 01/23/20 22:51 Dose: 20 mg Documented by: Senna (Senna -) 1 tab PO [facility] Last Admin: 01/23/20 22:51 Dose: 1 tab Documented by: Tamsulosin HCl (Flomax -) 0.4 mg PO DAILY@0830 [facility] Last Admin: 01/24/20 09:13 Dose: 0.4 mg Documented by: Timolol Maleate (Timoptic 0.5%) 1 drop OU BID [facility] Last Admin: 01/24/20 09:13 Dose: 1 drop Documented by: - Objective Vital Signs: Vital Signs Temperature 97.8 F 01/24/20 10:00 Pulse Rate 76 01/24/20 10:00 Respiratory Rate 18 01/24/20 10:00 Blood Pressure 150/70 01/24/20 10:00 O2 Sat by Pulse Oximetry (%) 94 L 01/21/20 10:29 Constitutional: Yes: No Distress, Calm Cardiovascular: Yes: S1, S2 Respiratory: Yes: Regular, Wheezes Gastrointestinal: Yes: Normal Bowel Sounds, Soft Musculoskeletal: Yes: WNL Extremities: Yes: WNL Neurological: Yes: Alert, Oriented Psychiatric: Yes: Alert, Oriented Labs: CBC, BMP 01/22/20 08:30 01/22/20 08:30 Assessment/Plan 79M w/ pmhx of HTN, HLD, DM and chronic lymphocytic thyroiditis, presents to the ED for generalized weakness, fatigue and persistent cough admitted for presumptive patient also being admitted for r/o coronovirus sepsis [neumonia cough afin weakness chills plan continue abx rest as per the team
--- NOTE | 2020-01-24 13:40 | PN ---
Progress Note (short form) - Note Progress Note: PULMONARY APPEARS STABLE/EATING LUNCH AFEBRILE Constitutional: Yes: Calm Eyes: Yes: Conjunctiva Clear, EOM Intact HENT: Yes: Atraumatic, Normocephalic Neck: Yes: Supple, Trachea Midline Cardiovascular: Yes: Regular Rate and Rhythm Respiratory: Yes: Rhonchi, Wheezes ...Clubbing: No Gastrointestinal: Yes: Normal Bowel Sounds, Soft. No: Tenderness Edema: No Neurological: Yes: Alert, Oriented Labs: NOTED SWAB PENDING - Results Chest X-ray: Report Reviewed, Image Reviewed Cat Scan: Report Reviewed, Image Reviewed (bilateral pleural based nodules, no infiltrates) Assessment/Plan Viral Syndrome Acute Bronchospasm Likely underlying COPD HTN DM Hyperlipidemia Lung Nodules - IV medrol - inhaled bronchodilators - O2 to keep Spo2 >90% - f/u serologies - outpt PFTs and f/u of lung nodules - DVT prophylaxis - Await swab results - Continue isolation and contact limited to essential health care providers Claudia DAVIES MD
--- NOTE | 2020-01-24 19:01 | PN ---
Progress Note (short form) - Note Progress Note: Vital Signs Temperature 97.8 F 01/24/20 10:00 Pulse Rate 76 01/24/20 10:00 Respiratory Rate 18 01/24/20 10:00 Blood Pressure 150/70 01/24/20 10:00 O2 Sat by Pulse Oximetry (%) 94 L 01/21/20 10:29 Examined the patient by pulmonary to limit staff exposure as per pulmonary still wheezing. CBCD WBC 7.5 K/mm3 (4.0-10.0) 01/22/20 08:30 RBC 4.99 M/mm3 (4.00-5.60) 01/22/20 08:30 Hgb 13.9 GM/dL (11.7-16.9) 01/22/20 08:30 Hct 40.9 % (35.4-49) 01/22/20 08:30 MCV 82.0 fl (80-96) 01/22/20 08:30 MCHC 33.9 g/dl (32.0-35.9) 01/22/20 08:30 RDW 14.4 % (11.9-15.9) 01/22/20 08:30 Plt Count 205 K/MM3 (134-434) 01/22/20 08:30 MPV 8.2 fl (7.5-11.1) 01/22/20 08:30 CMP Sodium 138 mmol/L (136-145) 01/22/20 08:30 Potassium 3.9 mmol/L (3.5-5.1) 01/22/20 08:30 Chloride 101 mmol/L (98-107) 01/22/20 08:30 Carbon Dioxide 32 mmol/L (21-32) 01/22/20 08:30 Anion Gap 5 MMOL/L (8-16) L 01/22/20 08:30 BUN 14.2 mg/dL (7-18) 01/22/20 08:30 Creatinine 1.0 mg/dL (0.55-1.3) 01/22/20 08:30 Random Glucose 126 mg/dL (74-106) H 01/22/20 08:30 Calcium 8.6 mg/dL (8.5-10.1) 01/22/20 08:30 Total Bilirubin 1.4 mg/dL (0.2-1) H 01/21/20 05:40 AST 13 U/L (15-37) L 01/21/20 05:40 ALT 20 U/L (13-61) 01/21/20 05:40 Alkaline Phosphatase 56 U/L (45-117) 01/21/20 05:40 Total Protein 7.0 g/dl (6.4-8.2) 01/21/20 05:40 Albumin 3.5 g/dl (3.4-5.0) 01/21/20 05:40 CARDIAC ENZYMES Creatine Kinase 98 U/L (26-308) 01/20/20 19:15 Troponin I 0.02 ng/ml (0.00-0.05) 01/20/20 19:15 Medication Instructions Recorded Hydrochlorothiazide [Hctz -] 25 mg PO DAILY 04/26/12 Rosuvastatin Calcium [Crestor] 20 mg PO DAILY 04/26/12 Silodosin [Rapaflo] 1 cap PO DAILY 05/04/18 metFORMIN HCL [Metformin HCl] 2 tab PO DAILY 08/04/18 Apixaban [Eliquis] 5 mg PO BID #60 tablet 01/18/20 Current Medications Generic Name Dose Route Start Last Admin Trade Name Freq PRN Reason Stop Dose Admin Acetaminophen 650 mg 01/20/20 22:01 01/21/20 10:13 Tylenol - PO 650 mg Q4H PRN Administration FEVER Albuterol Sulfate 2 puff 01/23/20 14:40 Ventolin Hfa Inhaler - IH Q4H PRN SHORT OF BREATH/WHEEZING Amlodipine Besylate 5 mg 01/21/20 10:30 01/24/20 09:13 Norvasc - PO 5 mg DAILY VAL Administration Amoxicillin/Clavulanate Potassium 1 tab 01/23/20 17:30 01/24/20 18:13 Augmentin - 875mg Tablet PO 1 tab BID@0800,1730 VAL Administration Apixaban 5 mg 01/21/20 10:00 01/24/20 09:13 Eliquis - PO 5 mg BID VAL Administration Budesonide/Formoterol Fumarate 2 puff 01/23/20 22:00 01/24/20 09:12 Symbicort 160/4.5mcg - IH 2 puff BID VAL Administration Docusate Sodium 100 mg 01/22/20 10:00 01/24/20 09:13 Colace - PO 100 mg DAILY VAL Administration Dorzolamide HCl 1 drop 01/22/20 22:00 01/24/20 09:12 Trusopt 2% OU 1 drop BID VAL Administration Insulin Aspart 1 vial 01/23/20 12:35 01/24/20 18:13 Novolog Vial Sliding Scale - SQ Not Given ACHS VAL Protocol Methylprednisolone Sodium Succinate 40 mg 01/23/20 18:00 01/24/20 18:12 Solu-Medrol - IVPUSH 40 mg Q8H-IV VAL Administration Ondansetron HCl 4 mg 01/22/20 08:24 Zofran Injection IVPUSH Q6H PRN NAUSEA Polyethylene Glycol 17 gm 01/22/20 10:00 01/24/20 09:14 Miralax (For Daily Use) - PO 17 grams DAILY VAL Administration Rosuvastatin Calcium 20 mg 01/21/20 22:00 01/23/20 22:51 Crestor - PO 20 mg HS VAL Administration Senna 1 tab 01/22/20 22:00 01/23/20 22:51 Senna - PO 1 tab HS VAL Administration Tamsulosin HCl 0.4 mg 01/21/20 08:30 01/24/20 09:13 Flomax - PO 0.4 mg DAILY@0830 VAL Administration Timolol Maleate 1 drop 01/22/20 22:00 01/24/20 09:13 Timoptic 0.5% OU 1 drop BID VAL Administration Microbiology 01/20/20 19:15 Blood - Peripheral Venous Blood Culture - Preliminary NO GROWTH OBTAINED AFTER 24 HOURS, INCUBATION TO CONTINUE FOR 4 DAYS. 01/20/20 19:15 Blood - Peripheral Venous Blood Culture - Preliminary NO GROWTH OBTAINED AFTER 24 HOURS, INCUBATION TO CONTINUE FOR 4 DAYS. ASSESSMENT AND PLAN: Patient is a 79yo m with Pmhx of HTN, DM, lymphocytic thyroiditis, and HLP , and recent hospitalization for new onset A fib . he presented with fatigue and SOB and was found to have fever . #Sepsis: r/o coronavirus, flu swab negative CXR: clear, waiting on Coronavirus result #acute leukocytosis: improved , Rapid flu is neg. chest CT ordered: tiny pleural based nodule in the right lower and left lower lobe which are nonspecific. the rest of the lung is clear. continue tamiflu empirically for now. Respiratory viral panel pending COVID -19. was send by ED staff, waiting for the result, Id is on the case # Recent diagnosis of A fib; on eliquis continue. # HTN with hypertensive urgency. BP is better controlled now , added norvasc #Acute hyponatremia : discontinue HCTZ # H/o DM : cont SSI. DVT PX: Add heparin SQ discussed with Id Visit type - Emergency Visit Emergency Visit: Yes ED Registration Date: 01/20/20 Care time: The patient presented to the Emergency Department on the above date and was hospitalized for further evaluation of their emergent condition. - New Patient This patient is new to me today: No - Critical Care Critical Care patient: No - Discharge Referral Referred to [facility] No
[2020-01-24] MEDS: ROSUVASTATIN CA 20 MG TABLET (FP) PO SCH (22:00)
[2020-01-24] MEDS: SENNOSIDES 8.6MG TABLET (FP) PO SCH (22:00)
[2020-01-25] MEDS: methylPREDNISolone NA SUCC 40 MG/1 ML VIAL IVPUSH SCH ×2 (01:22→09:13)
[2020-01-25] MEDS: INSULIN SLIDING SCALE (NOVOLOG) 1 VIAL SQ SCH ×4 (06:23→21:32)
[2020-01-25] MEDS: APIXABAN 5 MG TABLET PO SCH ×2 (09:15→21:32)
[2020-01-25] MEDS: AMOX TR/POT CLAV 875MG/125MG TABLETS (FP) PO SCH ×2 (09:15→17:22)
[2020-01-25] MEDS: DOCUSATE SODIUM 100 MG CAPSULE (FP) PO SCH (09:15)
[2020-01-25] MEDS: POLYETHYLENE GLYCOL 3350 119 GM BTL PO SCH (09:16)
[2020-01-25] MEDS: TAMSULOSIN HCL 0.4 MG CAP PO SCH (09:16)
[2020-01-25] MEDS: amLODIPine BESYLATE 5 MG TABLET (FP) PO SCH (09:16)
[2020-01-25] MEDS: BUDESONIDE/FORMETEROL FUMARATE 160/4.5 mcg INHALER IH SCH ×2 (09:19→21:33)
[2020-01-25] MEDS: DORZOLAMIDE 2% HCL OPHTHALMIC SOLUTION 10 ML BOTTLE OU SCH ×2 (09:20→21:33)
[2020-01-25] MEDS: TIMOLOL 0.5% OPHTHALMIC SOL 5 ML BOTTLE OU SCH ×2 (09:20→21:33)
--- NOTE | 2020-01-25 12:01 | PN ---
Progress Note (short form) - Note Progress Note: PULMONARY States breathing has improved. No fevers. Minimal cough. Vital Signs Period Temp Pulse Resp BP Sys/Crawford Pulse Ox Last 24 Hr 97.7 F-98.2 F 60-78 18-20 110-143/68-74 96-96 Gen: NAD at rest Heart: RRR Lung: no wheezes appreciated Abd: soft, nontender Ext: no edema CBC, BMP 01/22/20 08:30 01/22/20 08:30 Active Medications Acetaminophen (Tylenol -) 650 mg PO Q4H PRN PRN Reason: FEVER Last Admin: 01/21/20 10:13 Dose: 650 mg Documented by: Albuterol Sulfate (Ventolin Hfa Inhaler -) 2 puff IH Q4H PRN PRN Reason: SHORT OF BREATH/WHEEZING Amlodipine Besylate (Norvasc -) 5 mg PO DAILY [facility] Last Admin: 01/25/20 09:16 Dose: 5 mg Documented by: Amoxicillin/Clavulanate Potassium (Augmentin - 875mg Tablet) 1 tab PO BID@0800,1730 [facility] Last Admin: 01/25/20 09:15 Dose: 1 tab Documented by: Apixaban (Eliquis -) 5 mg PO BID [facility] Last Admin: 01/25/20 09:15 Dose: 5 mg Documented by: Budesonide/Formoterol Fumarate (Symbicort 160/4.5mcg -) 2 puff IH BID [facility] Last Admin: 01/25/20 09:19 Dose: 2 puff Documented by: Docusate Sodium (Colace -) 100 mg PO DAILY [facility] Last Admin: 01/25/20 09:15 Dose: 100 mg Documented by: Dorzolamide HCl (Trusopt 2%) 1 drop OU BID [facility] Last Admin: 01/25/20 09:20 Dose: 1 drop Documented by: Insulin Aspart (Novolog Vial Sliding Scale -) 1 vial SQ [facility]; Protocol Last Admin: 01/25/20 06:23 Dose: Not Given Documented by: Methylprednisolone Sodium Succinate (Solu-Medrol -) 40 mg IVPUSH Q8H-IV [facility] Last Admin: 01/25/20 09:13 Dose: 40 mg Documented by: Ondansetron HCl (Zofran Injection) 4 mg IVPUSH Q6H PRN PRN Reason: NAUSEA Polyethylene Glycol (Miralax (For Daily Use) -) 17 gm PO DAILY [facility] Last Admin: 01/25/20 09:16 Dose: 17 grams Documented by: Rosuvastatin Calcium (Crestor -) 20 mg PO [facility] Last Admin: 01/24/20 22:00 Dose: 20 mg Documented by: Senna (Senna -) 1 tab PO [facility] Last Admin: 01/24/20 22:00 Dose: 1 tab Documented by: Tamsulosin HCl (Flomax -) 0.4 mg PO DAILY@0830 [facility] Last Admin: 01/25/20 09:16 Dose: 0.4 mg Documented by: Timolol Maleate (Timoptic 0.5%) 1 drop OU BID [facility] Last Admin: 01/25/20 09:20 Dose: 1 drop Documented by: A/P Viral Syndrome Acute Bronchospasm Likely underlying COPD HTN DM Hyperlipidemia Lung Nodules - can d/c medrol - inhaled bronchodilators - O2 to keep Spo2 >90% - f/u serologies - outpt PFTs and f/u of lung nodules - DVT prophylaxis
[2020-01-25] MEDS: ALBUTEROL SO4 HFA INHALER IH SCH ×3 (15:58→18:52)
[2020-01-25] MEDS: metFORMIN HCL 500 MG TABLET (FP) PO SCH (17:22)
--- NOTE | 2020-01-25 19:17 | PN ---
Progress Note, Physician History of Present Illness: Pt states he feels better. No current SOB. Remains afebrile. - Current Medication List Current Medications: Active Medications Acetaminophen (Tylenol -) 650 mg PO Q4H PRN PRN Reason: FEVER Last Admin: 01/21/20 10:13 Dose: 650 mg Documented by: Albuterol Sulfate (Ventolin Hfa Inhaler -) 2 puff IH Q6HPO [facility] Last Admin: 01/25/20 18:52 Dose: 2 puff Documented by: Amlodipine Besylate (Norvasc -) 5 mg PO DAILY [facility] Last Admin: 01/25/20 09:16 Dose: 5 mg Documented by: Amoxicillin/Clavulanate Potassium (Augmentin - 875mg Tablet) 1 tab PO BID@0800,1730 [facility] Last Admin: 01/25/20 17:22 Dose: 1 tab Documented by: Apixaban (Eliquis -) 5 mg PO BID [facility] Last Admin: 01/25/20 09:15 Dose: 5 mg Documented by: Budesonide/Formoterol Fumarate (Symbicort 160/4.5mcg -) 2 puff IH BID [facility] Last Admin: 01/25/20 09:19 Dose: 2 puff Documented by: Docusate Sodium (Colace -) 100 mg PO DAILY [facility] Last Admin: 01/25/20 09:15 Dose: 100 mg Documented by: Dorzolamide HCl (Trusopt 2%) 1 drop OU BID [facility] Last Admin: 01/25/20 09:20 Dose: 1 drop Documented by: Insulin Aspart (Novolog Vial Sliding Scale -) 1 vial SQ [facility]; Protocol Last Admin: 01/25/20 15:59 Dose: Not Given Documented by: Metformin HCl (Glucophage -) 1,000 mg PO ACBK [facility] Last Admin: 01/25/20 17:22 Dose: 1,000 mg Documented by: Ondansetron HCl (Zofran Injection) 4 mg IVPUSH Q6H PRN PRN Reason: NAUSEA Polyethylene Glycol (Miralax (For Daily Use) -) 17 gm PO DAILY [facility] Last Admin: 01/25/20 09:16 Dose: 17 grams Documented by: Rosuvastatin Calcium (Crestor -) 20 mg PO HS [facility] Last Admin: 01/24/20 22:00 Dose: 20 mg Documented by: Senna (Senna -) 1 tab PO HS [facility] Last Admin: 01/24/20 22:00 Dose: 1 tab Documented by: Tamsulosin HCl (Flomax -) 0.4 mg PO DAILY@0830 [facility] Last Admin: 01/25/20 09:16 Dose: 0.4 mg Documented by: Timolol Maleate (Timoptic 0.5%) 1 drop OU BID [facility] Last Admin: 01/25/20 09:20 Dose: 1 drop Documented by: - Objective Vital Signs: Vital Signs Temperature 98.2 F 01/25/20 14:00 Pulse Rate 80 01/25/20 14:00 Respiratory Rate 20 01/25/20 14:00 Blood Pressure 129/78 01/25/20 14:00 O2 Sat by Pulse Oximetry (%) 96 01/24/20 22:00 Constitutional: Yes: No Distress, Calm Cardiovascular: Yes: Regular Rate and Rhythm Respiratory: Yes: CTA Bilaterally Gastrointestinal: Yes: Normal Bowel Sounds, Soft Genitourinary: Yes: WNL Integumentary: Yes: WNL Neurological: Yes: Alert, Oriented Labs: CBC, BMP 01/22/20 08:30 01/22/20 08:30 Laboratory Last Values WBC 7.5 K/mm3 (4.0-10.0) 01/22/20 08:30 RBC 4.99 M/mm3 (4.00-5.60) 01/22/20 08:30 Hgb 13.9 GM/dL (11.7-16.9) 01/22/20 08:30 Hct 40.9 % (35.4-49) 01/22/20 08:30 MCV 82.0 fl (80-96) 01/22/20 08:30 MCH 27.8 pg (25.7-33.7) 01/22/20 08:30 MCHC 33.9 g/dl (32.0-35.9) 01/22/20 08:30 RDW 14.4 % (11.9-15.9) 01/22/20 08:30 Plt Count 205 K/MM3 (134-434) 01/22/20 08:30 MPV 8.2 fl (7.5-11.1) 01/22/20 08:30 Absolute Neuts (auto) 10.7 K/mm3 (1.5-8.0) H 01/21/20 05:40 Neutrophils % 84.4 % (42.8-82.8) H 01/21/20 05:40 Lymphocytes % 5.3 % (8-40) L D 01/21/20 05:40 Monocytes % 9.8 % (3.8-10.2) 01/21/20 05:40 Eosinophils % 0.1 % (0-4.5) 01/21/20 05:40 Basophils % 0.4 % (0-2.0) 01/21/20 05:40 Nucleated RBC % 0 % (0-0) 01/21/20 05:40 VBG pH 7.48 (7.31-7.41) H 01/20/20 19:40 POC VBG pCO2 38.2 mmHg (38-52) 01/20/20 19:40 POC VBG pO2 63.1 mmHg (28-48) H 01/20/20 19:40 VBG HCO3 27.8 mmol/L (23-29) 01/20/20 19:40 VBG O2 Sat (Frankie) 91.7 % (70-80) H 01/20/20 19:40 VBG Base Excess 4.4 meq/l (-2-2) H 01/20/20 19:40 Sodium 138 mmol/L (136-145) 01/22/20 08:30 Potassium 3.9 mmol/L (3.5-5.1) 01/22/20 08:30 Chloride 101 mmol/L (98-107) 01/22/20 08:30 Carbon Dioxide 32 mmol/L (21-32) 01/22/20 08:30 Anion Gap 5 MMOL/L (8-16) L 01/22/20 08:30 BUN 14.2 mg/dL (7-18) 01/22/20 08:30 Creatinine 1.0 mg/dL (0.55-1.3) 01/22/20 08:30 Est GFR (CKD-EPI)AfAm 83.77 01/22/20 08:30 Est GFR (CKD-EPI)NonAf 72.28 01/22/20 08:30 POC Glucometer 183 UNITS (80-120) 01/25/20 15:56 Random Glucose 126 mg/dL (74-106) H 01/22/20 08:30 Lactic Acid 1.3 mmol/L (0.4-2.0) 01/20/20 19:40 Calcium 8.6 mg/dL (8.5-10.1) 01/22/20 08:30 Phosphorus 2.9 mg/dL (2.5-4.9) 01/22/20 08:30 Magnesium 2.2 mg/dL (1.8-2.4) 01/22/20 08:30 Total Bilirubin 1.4 mg/dL (0.2-1) H 01/21/20 05:40 Direct Bilirubin 0.3 mg/dL (0.0-0.2) H 01/21/20 05:40 AST 13 U/L (15-37) L 01/21/20 05:40 ALT 20 U/L (13-61) 01/21/20 05:40 Alkaline Phosphatase 56 U/L (45-117) 01/21/20 05:40 Creatine Kinase 98 U/L (26-308) 01/20/20 19:15 Troponin I 0.02 ng/ml (0.00-0.05) 01/20/20 19:15 Total Protein 7.0 g/dl (6.4-8.2) 01/21/20 05:40 Albumin 3.5 g/dl (3.4-5.0) 01/21/20 05:40 Coronavirus (PCR) Not detected (Not Detected) 01/20/20 11:36 Influenza A (Rapid) Negative (Negative) 01/22/20 14:40 Influenza B (Rapid) Negative (Negative) 01/22/20 14:40 RSV Rapid Negative (Negative) 01/21/20 07:19 Microbiology 01/20/20 19:15 Blood - Peripheral Venous Blood Culture - Preliminary NO GROWTH OBTAINED AFTER 96 HOURS, INCUBATION TO CON TINUE FOR 1 DAYS. 01/20/20 19:15 Blood - Peripheral Venous Blood Culture - Preliminary NO GROWTH OBTAINED AFTER 96 HOURS, INCUBATION TO CONTINUE FOR 1 DAYS. 01/22/20 07:40 Sputum - Expectorated Gram Stain - Final 01/22/20 07:40 Sputum - Expectorated Sputum Culture - Final NORMAL RESPIRATORY KAREEM 01/21/20 11:40 Urine For Antigen Detection Legionella Antigen - Final 01/21/20 11:40 Urine For Antigen Detection Streptococcus pneumoniae Antigen (M - Final - ....Imaging Cat Scan: Report Reviewed Problem List - Problems (1) Fever Code(s): R50.9 - FEVER, UNSPECIFIED Qualifiers: Fever type: unspecified Qualified Code(s): R50.9 - Fever, unspecified (2) SOB (shortness of breath) Code(s): R06.02 - SHORTNESS OF BREATH (3) Atrial fibrillation Code(s): I48.91 - UNSPECIFIED ATRIAL FIBRILLATION (4) Hypertension Code(s): I10 - ESSENTIAL (PRIMARY) HYPERTENSION Qualifiers: Hypertension type: essential hypertension Qualified Code(s): I10 - Essential (primary) hypertension Assessment/Plan -- Coronavirus negative, Influenza negative -- follow up other viral serologies -- continue Augmentin, BD -- pt is clinically improving
--- NOTE | 2020-01-25 19:30 | PN ---
Progress Note (short form) - Note Progress Note: Patient is comfortable with no acute distress. Vital Signs Temperature 98.2 F 01/25/20 14:00 Pulse Rate 80 01/25/20 14:00 Respiratory Rate 20 01/25/20 14:00 Blood Pressure 129/78 01/25/20 14:00 O2 Sat by Pulse Oximetry (%) 96 01/24/20 22:00 GENERAL: The patient is awake, alert, and fully oriented, in no acute distress. HEAD: Normal with no signs of trauma. EYES: PERRL, extraocular movements intact, sclera anicteric, conjunctiva clear. ENT: Ears normal, oropharynx clear without exudates, moist mucous membranes. NECK: Trachea midline, full range of motion, supple. LUNGS:decreased BS BL , +wheezing, bl, no crackles, no accessory muscle use. HEART: Regular rate and rhythm, S1, S2 without murmur, rub or gallop. ABDOMEN: Soft, nontender, nondistended, normoactive bowel sounds, no guarding, no rebound, no hepatosplenomegaly, no masses. EXTREMITIES: 2+ pulses, warm, well-perfused, no edema. NEUROLOGICAL: Cranial nerves II through XII grossly intact. Normal speech, gait not observed. PSYCH: Normal mood, normal affect. SKIN: Warm, dry, normal turgor, no rashes or lesions noted CBCD WBC 7.5 K/mm3 (4.0-10.0) 01/22/20 08:30 RBC 4.99 M/mm3 (4.00-5.60) 01/22/20 08:30 Hgb 13.9 GM/dL (11.7-16.9) 01/22/20 08:30 Hct 40.9 % (35.4-49) 01/22/20 08:30 MCV 82.0 fl (80-96) 01/22/20 08:30 MCHC 33.9 g/dl (32.0-35.9) 01/22/20 08:30 RDW 14.4 % (11.9-15.9) 01/22/20 08:30 Plt Count 205 K/MM3 (134-434) 01/22/20 08:30 MPV 8.2 fl (7.5-11.1) 01/22/20 08:30 CMP Sodium 138 mmol/L (136-145) 01/22/20 08:30 Potassium 3.9 mmol/L (3.5-5.1) 01/22/20 08:30 Chloride 101 mmol/L (98-107) 01/22/20 08:30 Carbon Dioxide 32 mmol/L (21-32) 01/22/20 08:30 Anion Gap 5 MMOL/L (8-16) L 01/22/20 08:30 BUN 14.2 mg/dL (7-18) 01/22/20 08:30 Creatinine 1.0 mg/dL (0.55-1.3) 01/22/20 08:30 Random Glucose 126 mg/dL (74-106) H 01/22/20 08:30 Calcium 8.6 mg/dL (8.5-10.1) 01/22/20 08:30 Total Bilirubin 1.4 mg/dL (0.2-1) H 01/21/20 05:40 AST 13 U/L (15-37) L 01/21/20 05:40 ALT 20 U/L (13-61) 01/21/20 05:40 Alkaline Phosphatase 56 U/L (45-117) 01/21/20 05:40 Total Protein 7.0 g/dl (6.4-8.2) 01/21/20 05:40 Albumin 3.5 g/dl (3.4-5.0) 01/21/20 05:40 CARDIAC ENZYMES Creatine Kinase 98 U/L (26-308) 01/20/20 19:15 Troponin I 0.02 ng/ml (0.00-0.05) 01/20/20 19:15 Medication Instructions Recorded Hydrochlorothiazide [Hctz -] 25 mg PO DAILY 04/26/12 Rosuvastatin Calcium [Crestor] 20 mg PO DAILY 04/26/12 Silodosin [Rapaflo] 1 cap PO DAILY 05/04/18 metFORMIN HCL [Metformin HCl] 2 tab PO DAILY 08/04/18 Apixaban [Eliquis] 5 mg PO BID #60 tablet 01/18/20 Current Medications Generic Name Dose Route Start Last Admin Trade Name Freq PRN Reason Stop Dose Admin Acetaminophen 650 mg 01/20/20 22:01 01/21/20 10:13 Tylenol - PO 650 mg Q4H PRN Administration FEVER Albuterol Sulfate 2 puff 01/25/20 12:15 01/25/20 18:52 Ventolin Hfa Inhaler - IH 2 puff Q6HPO VAL Administration Amlodipine Besylate 5 mg 01/21/20 10:30 01/25/20 09:16 Norvasc - PO 5 mg DAILY VAL Administration Amoxicillin/Clavulanate Potassium 1 tab 01/23/20 17:30 01/25/20 17:22 Augmentin - 875mg Tablet PO 1 tab BID@0800,1730 VAL Administration Apixaban 5 mg 01/21/20 10:00 01/25/20 09:15 Eliquis - PO 5 mg BID VAL Administration Budesonide/Formoterol Fumarate 2 puff 01/23/20 22:00 01/25/20 09:19 Symbicort 160/4.5mcg - IH 2 puff BID VAL Administration Docusate Sodium 100 mg 01/22/20 10:00 01/25/20 09:15 Colace - PO 100 mg DAILY VAL Administration Dorzolamide HCl 1 drop 01/22/20 22:00 01/25/20 09:20 Trusopt 2% OU 1 drop BID VAL Administration Insulin Aspart 1 vial 01/23/20 12:35 01/25/20 15:59 Novolog Vial Sliding Scale - SQ Not Given ACHS [facility] Protocol Metformin HCl 1,000 mg 01/25/20 16:00 01/25/20 17:22 Glucophage - PO 1,000 mg ACBK VAL Administration Ondansetron HCl 4 mg 01/22/20 08:24 Zofran Injection IVPUSH Q6H PRN NAUSEA Polyethylene Glycol 17 gm 01/22/20 10:00 01/25/20 09:16 Miralax (For Daily Use) - PO 17 grams DAILY VAL Administration Rosuvastatin Calcium 20 mg 01/21/20 22:00 01/24/20 22:00 Crestor - PO 20 mg HS VAL Administration Senna 1 tab 01/22/20 22:00 01/24/20 22:00 Senna - PO 1 tab HS VAL Administration Tamsulosin HCl 0.4 mg 01/21/20 08:30 01/25/20 09:16 Flomax - PO 0.4 mg DAILY@0830 VAL Administration Timolol Maleate 1 drop 01/22/20 22:00 01/25/20 09:20 Timoptic 0.5% OU 1 drop BID VAL Administration Microbiology 01/20/20 19:15 Blood - Peripheral Venous Blood Culture - Preliminary NO GROWTH OBTAINED AFTER 24 HOURS, INCUBATION TO CONTINUE FOR 4 DAYS. 01/20/20 19:15 Blood - Peripheral Venous Blood Culture - Preliminary NO GROWTH OBTAINED AFTER 24 HOURS, INCUBATION TO CONTINUE FOR 4 DAYS. Laboratory Tests 01/20/20 01/20/20 01/22/20 11:36 20:00 14:40 Coronavirus (PCR) Not detected Influenza A (Rapid) Negative Negative Influenza B (Rapid) Negative Negative ASSESSMENT AND PLAN: Patient is a 79yo m with Pmhx of HTN, DM, lymphocytic thyroiditis, and HLP , and recent hospitalization for new onset A fib . he presented with fatigue and SOB and was found to have fever . #Sepsis: coronavirus is rulled out, flu swab negative CXR: clear #acute leukocytosis Rapid flu is neg and coronavirus is negative, chest CT ordered: tiny pleural based nodule in the right lower and left lower lobe which are nonspecific. the rest of the lung is clear. dc tamiflu empirically . Respiratory viral panel is still pending # Recent diagnosis of A fib; on eliquis continue. # HTN with hypertensive urgency. BP is better controlled now , added norvasc #Acute hyponatremia : dc HCTZ # H/o DM : cont SSI. DVT PX: Add heparin SQ discussed with Id Visit type - Emergency Visit Emergency Visit: Yes ED Registration Date: 01/20/20 Care time: The patient presented to the Emergency Department on the above date and was hospitalized for further evaluation of their emergent condition. - New Patient This patient is new to me today: No - Critical Care Critical Care patient: No - Discharge Referral Referred to [facility] No
[2020-01-25] MEDS ORDERED: INSULIN (NOVOLOG) ASPART 100 UNITS/ML 10ML VIAL ONE (21:07)
[2020-01-25] MEDS: ROSUVASTATIN CA 20 MG TABLET (FP) PO SCH (21:32)
[2020-01-25] MEDS: SENNOSIDES 8.6MG TABLET (FP) PO SCH (21:32)
[2020-01-26] MEDS: ALBUTEROL SO4 HFA INHALER IH SCH ×3 (00:02→11:39)
[2020-01-26] MEDS: metFORMIN HCL 500 MG TABLET (FP) PO SCH (06:27)
[2020-01-26] MEDS: INSULIN SLIDING SCALE (NOVOLOG) 1 VIAL SQ SCH ×2 (06:30→11:24)
--- NOTE | 2020-01-26 09:15 | PN ---
Physical Exam: SUBJECTIVE: Patient seen and examined OBJECTIVE: Vital Signs Period Temp Pulse Resp BP Sys/Crawford Pulse Ox Last 24 Hr 97.8 F-98.2 F 78-99 20-20 129-154/68-93 96-98 GENERAL: The patient is awake, alert, and fully oriented, in no acute distress. HEAD: Normal with no signs of trauma. EYES: PERRL, extraocular movements intact, sclera anicteric, conjunctiva clear. No ptosis. ENT: Ears normal, nares patent, oropharynx clear without exudates, moist mucous membranes. NECK: Trachea midline, full range of motion, supple. LUNGS: Breath sounds equal, clear to auscultation bilaterally, no wheezes, no crackles, no accessory muscle use. HEART: Regular rate and rhythm, S1, S2 without murmur, rub or gallop. ABDOMEN: Soft, nontender, nondistended, normoactive bowel sounds, no guarding, no rebound, no hepatosplenomegaly, no masses. EXTREMITIES: 2+ pulses, warm, well-perfused, no edema. NEUROLOGICAL: Cranial nerves II through XII grossly intact. Normal speech, gait not observed. PSYCH: Normal mood, normal affect. SKIN: Warm, dry, normal turgor, no rashes or lesions noted Laboratory Results - last 24 hr 01/20/20 01/25/20 01/25/20 11:36 12:34 15:56 POC Glucometer 212 183 Coronavirus (PCR) Not detected 01/25/20 01/26/20 21:31 06:26 POC Glucometer 179 114 Coronavirus (PCR) Active Medications Generic Name Dose Route Start Last Admin Trade Name Anthonyq PRN Reason Stop Dose Admin Acetaminophen 650 mg 01/20/20 22:01 01/21/20 10:13 Tylenol - PO 650 mg Q4H PRN Administration FEVER Albuterol Sulfate 2 puff 01/25/20 12:15 01/26/20 06:27 Ventolin Hfa Inhaler - IH 2 puff Q6HPO VAL Administration Amlodipine Besylate 5 mg 01/21/20 10:30 01/25/20 09:16 Norvasc - PO 5 mg DAILY VAL Administration Amoxicillin/Clavulanate Potassium 1 tab 01/23/20 17:30 01/25/20 17:22 Augmentin - 875mg Tablet PO 1 tab BID@0800,1730 VAL Administration Apixaban 5 mg 01/21/20 10:00 01/25/20 21:32 Eliquis - PO 5 mg BID VAL Administration Budesonide/Formoterol Fumarate 2 puff 01/23/20 22:00 01/25/20 21:33 Symbicort 160/4.5mcg - IH 2 puff BID VAL Administration Docusate Sodium 100 mg 01/22/20 10:00 01/25/20 09:15 Colace - PO 100 mg DAILY VAL Administration Dorzolamide HCl 1 drop 01/22/20 22:00 01/25/20 21:33 Trusopt 2% OU 1 drop BID VAL Administration Insulin Aspart 1 vial 01/23/20 12:35 01/26/20 06:30 Novolog Vial Sliding Scale - SQ Not Given ACHS [facility] Protocol Metformin HCl 1,000 mg 01/25/20 16:00 01/26/20 06:27 Glucophage - PO 1,000 mg ACBK VAL Administration Ondansetron HCl 4 mg 01/22/20 08:24 Zofran Injection IVPUSH Q6H PRN NAUSEA Polyethylene Glycol 17 gm 01/22/20 10:00 01/25/20 09:16 Miralax (For Daily Use) - PO 17 grams DAILY VAL Administration Rosuvastatin Calcium 20 mg 01/21/20 22:00 01/25/20 21:32 Crestor - PO 20 mg HS VAL Administration Senna 1 tab 01/22/20 22:00 01/25/20 21:32 Senna - PO 1 tab HS VAL Administration Tamsulosin HCl 0.4 mg 01/21/20 08:30 01/25/20 09:16 Flomax - PO 0.4 mg DAILY@0830 VAL Administration Timolol Maleate 1 drop 01/22/20 22:00 01/25/20 21:33 Timoptic 0.5% OU 1 drop BID VAL Administration ASSESSMENT/PLAN: 79M w/ PMH of HTN, HLD, DM and chronic lymphocytic thyroiditis, presents to the ED for generalized weakness, fatigue and persistent cough admitted for presumptive Covid Sepsis 2/2 CAP; - on admission Febrile 102.2, HR 112, WBC 18.4. Initial 92% on RA. -c/w tamiflu , azithro, zosyn - chest CT reviewed -pending results from Covid screen - pending RSV panel, Flu negative . pending cultures. pending legionella -Tylenol 650 Q4H PO PRN for fever, Zofran 4 Q6H IVP PRN for nausea, IVF Recent Onset Afib -Cont home meds: Eliquis 5 BID - will re-eval for possible rate control, will continue to monitor HR HTN: - will hold HCTZ due to sepsis , start norvasc 5 daily HLD: - Cont Crestor 20 DM: - BGM/ISS ACHS. DVT Ppx: -Eliquis 5 bid FEN -LR @ 100 -Diabetic diet Dispo: med-surg ATTENDING PHYSICIAN STATEMENT I saw and evaluated the patient. I reviewed the resident's note and discussed the case with the resident. I agree with the resident's findings and plan as documented. SUBJECTIVE: OBJECTIVE: ASSESSMENT AND PLAN:
[2020-01-26] MEDS: AMOX TR/POT CLAV 875MG/125MG TABLETS (FP) PO SCH (10:32)
[2020-01-26] MEDS: APIXABAN 5 MG TABLET PO SCH (10:32)
[2020-01-26] MEDS: TAMSULOSIN HCL 0.4 MG CAP PO SCH (10:33)
[2020-01-26] MEDS: amLODIPine BESYLATE 5 MG TABLET (FP) PO SCH (10:33)
[2020-01-26] MEDS: DOCUSATE SODIUM 100 MG CAPSULE (FP) PO SCH (10:33)
[2020-01-26] MEDS: POLYETHYLENE GLYCOL 3350 119 GM BTL PO SCH (10:33)
[2020-01-26] MEDS: BUDESONIDE/FORMETEROL FUMARATE 160/4.5 mcg INHALER IH SCH (10:36)
[2020-01-26] MEDS: TIMOLOL 0.5% OPHTHALMIC SOL 5 ML BOTTLE OU SCH (10:36)
[2020-01-26] MEDS: DORZOLAMIDE 2% HCL OPHTHALMIC SOLUTION 10 ML BOTTLE OU SCH (10:36)
--- NOTE | 2020-01-26 12:12 | PN ---
Teaching Attending Note Name of Resident: Sarah Rivera ATTENDING PHYSICIAN STATEMENT I saw and evaluated the patient. I reviewed the resident's note and discussed the case with the resident. I agree with the resident's findings and plan as documented. SUBJECTIVE: Patient is comfortable with no acute distress, no shortness of breath. no nausea or vomiting. OBJECTIVE:Vital Signs Temperature 98 F 01/26/20 09:57 Pulse Rate 67 01/26/20 09:57 Respiratory Rate 20 01/26/20 09:57 Blood Pressure 124/63 01/26/20 09:57 O2 Sat by Pulse Oximetry (%) 96 01/26/20 08:28 GENERAL: The patient is awake, alert, and fully oriented, in no acute distress. HEAD: Normal with no signs of trauma. EYES: PERRL, extraocular movements intact, sclera anicteric, conjunctiva clear. ENT: Ears normal, oropharynx clear without exudates, moist mucous membranes. NECK: Trachea midline, full range of motion, supple. LUNGS:decreased BS BL , +wheezing, bl, no crackles, no accessory muscle use. HEART: Regular rate and rhythm, S1, S2 without murmur, rub or gallop. ABDOMEN: Soft, nontender, nondistended, normoactive bowel sounds, no guarding, no rebound, no hepatosplenomegaly, no masses. EXTREMITIES: 2+ pulses, warm, well-perfused, no edema. NEUROLOGICAL: Cranial nerves II through XII grossly intact. Normal speech, gait not observed. PSYCH: Normal mood, normal affect. SKIN: Warm, dry, normal turgor, no rashes or lesions noted CBCD WBC 7.5 K/mm3 (4.0-10.0) 01/22/20 08:30 RBC 4.99 M/mm3 (4.00-5.60) 01/22/20 08:30 Hgb 13.9 GM/dL (11.7-16.9) 01/22/20 08:30 Hct 40.9 % (35.4-49) 01/22/20 08:30 MCV 82.0 fl (80-96) 01/22/20 08:30 MCHC 33.9 g/dl (32.0-35.9) 01/22/20 08:30 RDW 14.4 % (11.9-15.9) 01/22/20 08:30 Plt Count 205 K/MM3 (134-434) 01/22/20 08:30 MPV 8.2 fl (7.5-11.1) 01/22/20 08:30 CMP Sodium 138 mmol/L (136-145) 01/22/20 08:30 Potassium 3.9 mmol/L (3.5-5.1) 01/22/20 08:30 Chloride 101 mmol/L (98-107) 01/22/20 08:30 Carbon Dioxide 32 mmol/L (21-32) 01/22/20 08:30 Anion Gap 5 MMOL/L (8-16) L 01/22/20 08:30 BUN 14.2 mg/dL (7-18) 01/22/20 08:30 Creatinine 1.0 mg/dL (0.55-1.3) 01/22/20 08:30 Random Glucose 126 mg/dL (74-106) H 01/22/20 08:30 Calcium 8.6 mg/dL (8.5-10.1) 01/22/20 08:30 Total Bilirubin 1.4 mg/dL (0.2-1) H 01/21/20 05:40 AST 13 U/L (15-37) L 01/21/20 05:40 ALT 20 U/L (13-61) 01/21/20 05:40 Alkaline Phosphatase 56 U/L (45-117) 01/21/20 05:40 Total Protein 7.0 g/dl (6.4-8.2) 01/21/20 05:40 Albumin 3.5 g/dl (3.4-5.0) 01/21/20 05:40 CARDIAC ENZYMES Creatine Kinase 98 U/L (26-308) 01/20/20 19:15 Troponin I 0.02 ng/ml (0.00-0.05) 01/20/20 19:15 Current Medications Generic Name Dose Route Start Last Admin Trade Name Freq PRN Reason Stop Dose Admin Acetaminophen 650 mg 01/20/20 22:01 01/21/20 10:13 Tylenol - PO 650 mg Q4H PRN Administration FEVER Albuterol Sulfate 2 puff 01/25/20 12:15 01/26/20 11:39 Ventolin Hfa Inhaler - IH 2 puff Q6HPO VAL Administration Amlodipine Besylate 5 mg 01/21/20 10:30 01/26/20 10:33 Norvasc - PO 5 mg DAILY VAL Administration Amoxicillin/Clavulanate Potassium 1 tab 01/23/20 17:30 01/26/20 10:32 Augmentin - 875mg Tablet PO 1 tab BID@0800,1730 VAL Administration Apixaban 5 mg 01/21/20 10:00 01/26/20 10:32 Eliquis - PO 5 mg BID VAL Administration Budesonide/Formoterol Fumarate 2 puff 01/23/20 22:00 01/26/20 10:36 Symbicort 160/4.5mcg - IH 2 puff BID VAL Administration Docusate Sodium 100 mg 01/22/20 10:00 01/26/20 10:33 Colace - PO 100 mg DAILY VAL Administration Dorzolamide HCl 1 drop 01/22/20 22:00 01/26/20 10:36 Trusopt 2% OU 1 drop BID VAL Administration Insulin Aspart 1 vial 01/23/20 12:35 01/26/20 11:24 Novolog Vial Sliding Scale - SQ Not Given ACHS [facility] Protocol Metformin HCl 1,000 mg 01/25/20 16:00 01/26/20 06:27 Glucophage - PO 1,000 mg ACBK VAL Administration Ondansetron HCl 4 mg 01/22/20 08:24 Zofran Injection IVPUSH Q6H PRN NAUSEA Polyethylene Glycol 17 gm 01/22/20 10:00 01/26/20 10:33 Miralax (For Daily Use) - PO 17 grams DAILY VAL Administration Rosuvastatin Calcium 20 mg 01/21/20 22:00 01/25/20 21:32 Crestor - PO 20 mg HS VAL Administration Senna 1 tab 01/22/20 22:00 01/25/20 21:32 Senna - PO 1 tab HS VAL Administration Tamsulosin HCl 0.4 mg 01/21/20 08:30 01/26/20 10:33 Flomax - PO 0.4 mg DAILY@0830 VAL Administration Timolol Maleate 1 drop 01/22/20 22:00 01/26/20 10:36 Timoptic 0.5% OU 1 drop BID VAL Administration Home Medications Medication Instructions Recorded Hydrochlorothiazide [Hctz -] 25 mg PO DAILY 04/26/12 Rosuvastatin Calcium [Crestor] 20 mg PO DAILY 04/26/12 Silodosin [Rapaflo] 1 cap PO DAILY 05/04/18 metFORMIN HCL [Metformin HCl] 2 tab PO DAILY 08/04/18 Apixaban [Eliquis] 5 mg PO BID #60 tablet 01/18/20 Bimatoprost [Lumigan] 1 drop OU HS 01/22/20 Brimonidine Tartrate [Alphagan 1 drop OU TID 01/22/20 0.15% -] Dorzolamide/Timolol/Pf [Timolol 1 drop OU BID 01/22/20 0.5%-Dorzolamide 2%] Microbiology 01/20/20 19:15 Blood - Peripheral Venous Blood Culture - Preliminary NO GROWTH OBTAINED AFTER 24 HOURS, INCUBATION TO CONTINUE FOR 4 DAYS. 01/20/20 19:15 Blood - Peripheral Venous Blood Culture - Preliminary NO GROWTH OBTAINED AFTER 24 HOURS, INCUBATION TO CONTINUE FOR 4 DAYS. Laboratory Tests 01/20/20 01/20/20 01/22/20 11:36 20:00 14:40 Coronavirus (PCR) Not detected Influenza A (Rapid) Negative Negative Influenza B (Rapid) Negative Negative ASSESSMENT AND PLAN: Patient is a 79yo m with Pmhx of HTN, DM, lymphocytic thyroiditis, and HLP , and recent hospitalization for new onset A fib . he presented with fatigue and SOB and was found to have fever . #Sepsis: r/o coronavirus, flu swab negative CXR: clear, waiting on Coronavirus result #acute leukocytosis: improved , Rapid flu is neg. chest CT ordered: tiny pleural based nodule in the right lower and left lower lobe which are nonspecific. follow up with Pulmonary with dr Samuel, for further w/u . COVID -19 negative. # Recent diagnosis of A fib; on eliquis continue. # HTN with hypertensive urgency. BP is better controlled now continue norvasc # Thyroid nodule: your right lobe of your thyroid ( 2.5x1.7cm), need to follow up with Dr. Jackson for possible biopsy as well #Acute hyponatremia : discontinue HCTZ # H/o DM : cont SSI. discharge patient home with prednisone , discussed with pulmonary
[2020-01-26 14:10] VITALS: BP 127/61; PULSE 64; TEMP 97.7
--- NOTE | 2020-01-26 14:22 | PN ---
Progress Note (short form) - Note Progress Note: PULMONARY States breathing improving but still with chest tightness. No fevers. Minimal cough. Vital Signs Period Temp Pulse Resp BP Sys/Crawford Pulse Ox Last 24 Hr 97.7 F-98 F 58-99 20-20 124-154/61-93 96-98 Gen: NAD at rest Heart: RRR Lung: no wheezes appreciated Abd: soft, nontender Ext: no edema CBC, BMP 01/22/20 08:30 01/22/20 08:30 Active Medications Acetaminophen (Tylenol -) 650 mg PO Q4H PRN PRN Reason: FEVER Last Admin: 01/21/20 10:13 Dose: 650 mg Documented by: Albuterol Sulfate (Ventolin Hfa Inhaler -) 2 puff IH Q6HPO [facility] Last Admin: 01/26/20 11:39 Dose: 2 puff Documented by: Amlodipine Besylate (Norvasc -) 5 mg PO DAILY [facility] Last Admin: 01/26/20 10:33 Dose: 5 mg Documented by: Amoxicillin/Clavulanate Potassium (Augmentin - 875mg Tablet) 1 tab PO BID@0800,1730 [facility] Last Admin: 01/26/20 10:32 Dose: 1 tab Documented by: Apixaban (Eliquis -) 5 mg PO BID [facility] Last Admin: 01/26/20 10:32 Dose: 5 mg Documented by: Budesonide/Formoterol Fumarate (Symbicort 160/4.5mcg -) 2 puff IH BID [facility] Last Admin: 01/26/20 10:36 Dose: 2 puff Documented by: Docusate Sodium (Colace -) 100 mg PO DAILY [facility] Last Admin: 01/26/20 10:33 Dose: 100 mg Documented by: Dorzolamide HCl (Trusopt 2%) 1 drop OU BID [facility] Last Admin: 01/26/20 10:36 Dose: 1 drop Documented by: Insulin Aspart (Novolog Vial Sliding Scale -) 1 vial SQ [facility]; Protocol Last Admin: 01/26/20 11:24 Dose: Not Given Documented by: Metformin HCl (Glucophage -) 1,000 mg PO ACBK [facility] Last Admin: 01/26/20 06:27 Dose: 1,000 mg Documented by: Ondansetron HCl (Zofran Injection) 4 mg IVPUSH Q6H PRN PRN Reason: NAUSEA Polyethylene Glycol (Miralax (For Daily Use) -) 17 gm PO DAILY [facility] Last Admin: 01/26/20 10:33 Dose: 17 grams Documented by: Rosuvastatin Calcium (Crestor -) 20 mg PO [facility] Last Admin: 01/25/20 21:32 Dose: 20 mg Documented by: Senna (Senna -) 1 tab PO [facility] Last Admin: 01/25/20 21:32 Dose: 1 tab Documented by: Tamsulosin HCl (Flomax -) 0.4 mg PO DAILY@0830 [facility] Last Admin: 01/26/20 10:33 Dose: 0.4 mg Documented by: Timolol Maleate (Timoptic 0.5%) 1 drop OU BID [facility] Last Admin: 01/26/20 10:36 Dose: 1 drop Documented by: A/P Viral Syndrome Acute Bronchospasm Likely underlying COPD HTN DM Hyperlipidemia Lung Nodules - can discharge on prednisone 40mg daily - inhaled bronchodilators - O2 to keep Spo2 >90% - outpt PFTs and f/u of lung nodules - DVT prophylaxis
--- NOTE | 2020-01-27 16:36 | DS ---
Physical Exam: SUBJECTIVE: Patient seen and examined at bedside. pt states he is feeling better OBJECTIVE: PHYSICAL EXAM GENERAL: The patient is awake, alert, and fully oriented, in no acute distress. HEAD: Normal with no signs of trauma. LUNGS: Breath sounds equal, decreased at bases clear to auscultation bilaterally, no accessory muscle use. HEART: Regular rate and rhythm, S1, S2 ABDOMEN: Soft, nontender, nondistended, normoactive bowel sounds, no guarding, no rebound EXTREMITIES: 2+ pulses, warm, well-perfused, no edema. NEUROLOGICAL: Cranial nerves II through XII grossly intact. Normal speech PSYCH: Normal mood, normal affect. SKIN: Warm, dry, normal turgor, no rashes or lesions noted. LABS Laboratory Results - last 24 hr 01/21/20 20:00 Adenovirus (PCR) Negative Human Metapneumovir PCR Negative Influenza A (H1) PCR Positive H Influenza B (RT-PCR) Negative Parainfluenza 1 (PCR) Negative Parainfluenza 2 (PCR) Negative Parainfluenza 3 (PCR) Negative RSV Type A (PCR) Negative RSV Type B (PCR) Negative Rhinovirus (PCR) Negative HOSPITAL COURSE: Date of Admission:01/20/20 79M w/ PMH of HTN, HLD, DM and chronic lymphocytic thyroiditis, presents to the ED for generalized weakness, fatigue and persistent cough admitted for presumptive Covid . Covid testing returned negative. pt was found to be positive for influenza A . pt was treated with tamiflu and other supportive measures. pt was managed on eliquis for Afib. pt was on norvasc for HTN, crestor fr HLD. BGM/ISS for DM. Pt was discharged with instructions to cntinue on tamiflu bid. pt should f/u [facility] pmd for chornic medical condtions. pt was found to have a no dule on his thyroid, you should f/u withDr. Manuel. your pmd regarding your chronic medical conditions Date of Discharge: 01/26/20 Minutes to complete discharge: 36 Discharge Summary Problems reviewed: Yes Reason For Visit: ACUTE RESPIRATORY FAILURE WITH HYPOXEMIA Condition: Stable - Instructions Diet, Activity, Other Instructions: You came into the hospital with fevers and shortness of breath. You were admitted to the hospital for a COPD exacerbation. You were treated with IV steroids and nebulizer treatments. You had a CT of your chest showing that you have a Pleural based nodule. You also had a nodule on your right lobe of your thyroid ( 2.5x1.7cm), need to follow up with Dr. Jackson for possible biopsy as well. We recommend you have a thyroid ultrasound to further analyze this and you need to see fur cleaner for that, Dr Jackson Please take norvasc 5 mg daily. Do NOT take the hydrochlorothiazide. Please take Augmentin 875mg twice a day for 3 more days. with food Please continue your other home medications as prescribed. Please follow up with your primary care provider in 1 week to further manage your healthcare Please follow up with your credit intern, Dr. Samuel to further manage your COPD If you have any new, worsening, or concerning symptoms please return to the ED or call 911. Referrals: Jens Fletcher MD [Primary Care Provider] - 1 Week Angel Luis Jackson MD [Staff Physician] - 1 Week Eleuterio Samuel MD, MD [Staff Physician] - 1 Week Disposition: HOME - Home Medications Comprehensive Discharge Medication List: Ambulatory Orders Hydrochlorothiazide [Hctz -] 25 mg PO DAILY 04/26/12 Rosuvastatin Calcium [Crestor] 20 mg PO DAILY 04/26/12 Silodosin [Rapaflo] 1 cap PO DAILY 05/04/18 metFORMIN HCL [Metformin HCl] 2 tab PO DAILY 08/04/18 Apixaban [Eliquis] 5 mg PO BID #60 tablet 01/18/20 Bimatoprost [Lumigan] 1 drop OU HS 01/22/20 Brimonidine Tartrate [Alphagan 0.15% -] 1 drop OU TID 01/22/20 Dorzolamide/Timolol/Pf [Timolol 0.5%-Dorzolamide 2%] 1 drop OU BID 01/22/20 Albuterol 2.5/Ipratropium 0.5 [Duoneb -] 1 neb NEB Q6H PRN #25 vial 01/26/20 Albuterol Sulfate Inhaler - [Ventolin HFA Inhaler -] 2 puff IH Q4H PRN #1 inhaler 01/26/20 Amlodipine Besylate [Norvasc -] 5 mg PO DAILY #30 tablet 01/26/20 Amox-Tr/K Cl [Augmentin 875-125mg Tablet -] 1 tab PO BID@0800,1730 #6 tablet 01/26/20 Budesonide/Formeterol Fumarate [SYMBICORT 160/4.5mcg -] 2 puff IH BID #1 inhaler 01/26/20 Docusate Sodium [Colace -] 100 mg PO DAILY capsule 01/26/20 Nebulizer Accessories [All Flow 1000] 1 each MC DAILY #1 each 01/26/20 Nebulizer [Aeroeclipse II] 1 each MC DAILY #1 each 01/26/20 Nebulizer and Compressor [Home Nebulizer Plus Sidestream] 1 each MC DAILY #1 each 01/26/20 Pantoprazole Sodium [Protonix -] 40 mg PO DAILY #5 tablet.ec 01/26/20 Polyethylene Glycol 3350 [Miralax 119 gm Btl -] 17 gm PO DAILY #1 bottle 01/26/20 Tamsulosin HCl [Flomax -] 0.4 mg PO DAILY@0830 cap.er.24h 01/26/20 predniSONE [Deltasone -] 40 mg PO DAILY 5 Days #5 tablet 01/26/20 Oseltamivir Phosphate [Tamiflu] 75 mg PO BID #10 capsule 01/27/20 This patient is new to me today: No Emergency Visit: No Critical Care patient: No - Discharge Referral Referred to [facility] No ATTENDING PHYSICIAN STATEMENT I saw and evaluated the patient. I reviewed the resident's note and discussed the case with the resident. I agree with the resident's findings and plan as documented. SUBJECTIVE: OBJECTIVE: ASSESSMENT AND PLAN:
== END 2020-01-26 15:26 | disposition home or self-care (01) | DRG 872 ==
LOC: JER 17:39 → JERBED 20:59 → J8W 01-21 15:55
PROVIDERS: ADMIT Internal Medicine; ATTEND Internal Medicine
DX: A41.89 Other specified sepsis (principal); E87.1 Hypo-osmolality and hyponatremia; J44.1 Chronic obstructive pulmonary disease with (acute) exacerbation; R50.9 Fever, unspecified; I10 Essential (primary) hypertension; E11.9 Type 2 diabetes mellitus without complications; I48.91 Unspecified atrial fibrillation; E04.2 Nontoxic multinodular goiter; N40.0 Benign prostatic hyperplasia without lower urinary tract symptoms; E78.00 Pure hypercholesterolemia, unspecified; R00.0 Tachycardia, unspecified; D72.829 Elevated white blood cell count, unspecified; J10.1 Influenza due to other identified influenza virus with other respiratory manifestations; E06.3 Autoimmune thyroiditis; B97.89 Other viral agents as the cause of diseases classified elsewhere; R63.0 Anorexia; Z68.34 Body mass index [BMI] 34.0-34.9, adult; R91.8 Other nonspecific abnormal finding of lung field; I16.0 Hypertensive urgency
CPT/HCPCS: 36415; 71045-TC-FY; 71250-TC; 80048; 80053; 82248; 82550; 82803; 82962; 83605; 83735; 84100; 84484; 85025; 85027; 87040; 87070; 87205; 87633; 87798; 87804; 87807; 87899; 93005; 93010; 99285-25; J0131; J7030

== ENCOUNTER 2020-09-01 17:58 | Emergency (ER) | payer OTHER, MEDICARE ==
[2020-09-01 18:17] VITALS: TEMP 98.3; BMI 33.5
--- OUTSIDE RECORDS SUMMARY | 2020-09-01 18:35 | XMS ---
:1940 Author Organization [facility] Support Name Relationship Address Phone RE, RETIRED Unavailable Unavailable Unavailable RE Unavailable Unavailable Unavailable VEL SNATANA [place] [address] SE Unavailable Unavailable Unavailable SUREKHA LACY [address] [place] [address] VEL SANTANA Child [place]AIL[place] [address] Re-disclosure Warning The records that you are about to access may contain information from federally- assisted alcohol or drug abuse programs. If such information is present, then the following federally mandated warning applies: This information has been disclosed to you from records protected by federal confidentiality rules (42 CFR part 2). The federal rules prohibit you from making any further disclosure of this information unless further disclosure is expressly permitted by the written consent of the person to whom it pertains or as otherwise permitted by 42 CFR part 2. A general authorization for the release of medical or other information is NOT sufficient for this purpose. The Federal rules restrict any use of the information to criminally investigate or prosecute any alcohol or drug abuse patient.The records that you are about to access may contain highly sensitive health information, the redisclosure of which is protected by Article 27-F of the [facility] Public Health law. If you continue you may haveaccess to information: Regarding HIV / AIDS; Provided by facilities licensed or operated by the [facility] Office of Mental Health; or Provided by the [facility] Office for People With Developmental Disabilities. If such information is present, then the following [facility] mandated warning applies: This information has been disclosed to you from confidential records which are protected by state law. State law prohibits you from making any further disclosure of this information without the specific written consent of the person to whom it pertains, or as otherwise permitted by law. Any unauthorized further disclosure in violation of state law may result in a fine or senior care sentence or both. A general authorization for the release of medical or other information is NOT sufficient authorization for further disclosure. Insurance Providers Payer name Policy type Policy ID Covered Covered republican's Policy P elier / Coverage republican ID relationship to Ma Inf ormation type ma MEDICARE [id number] SP [id number] [facility] [id number] CARE OPTIONS [facility] [id number] CARE OPTIONS MEDICARE [id number] SP [id number] A [place] [id number] SP [id number] HEALTHCARE (MEDICARE) MEDICARE [id number] SP [id number] Results ID Date Data Source [id number] 01/20/2020 11:36:00 AM EDT [facility] Name Value Range Interpretation Code Description Data Adriane rce(s) Supporting Document(s ) 2019-NCOV [facility] RNA PNL XXX JESSE+[id number] This lab was ordered by [facility] and reported by [facility]. Procedure
--- NOTE | 2020-09-01 19:19 | PDOC ---
*Physical Exam - Vital Signs Last Vital Signs Temp Pulse Resp BP Pulse Ox 98.3 F 82 16 159/105 H 100 09/01/20 18:13 09/01/20 18:13 09/01/20 18:13 09/01/20 18:13 09/01/20 18:13 ED Treatment Course - LABORATORY CBC & Chemistry Diagram: 09/01/20 19:30 09/01/20 19:30 Medical Decision Making - Medical Decision Making 09/02/20 06:49 Patient seen by the advanced practice provider under my supervision. Ancillary testing reviewed as necessary. I agree with plan as outlined by the advanced practice provider. Discharge - Discharge Information Problems reviewed: Yes Clinical Impression/Diagnosis: Hypertension Qualifiers: Hypertension type: essential hypertension Qualified Code(s): I10 - Essential (primary) hypertension Headache Qualifiers: Headache type: unspecified Headache chronicity pattern: acute headache Intractability: intractable Qualified Code(s): R51.9 - Headache, unspecified Condition: Improved Disposition: HOME - Follow up/Referral Referrals: Jens Fletcher MD [Primary Care Provider] - Call tomorrow - Patient Discharge Instructions Patient Printed Discharge Instructions: Tension Headache Additional Instructions: Please follow-up with your primary doctor as soon as possible return to the emergency room for any worsening symptoms - Post Discharge Activity
--- NOTE | 2020-09-01 19:27 | PDOC ---
History of Present Illness - General Chief Complaint: Headache Stated Complaint: Headache Time Seen by Provider: 09/01/20 19:11 History Source: Patient - History of Present Illness Initial Comments: 09/01/20 20:01 80-year-old male complaining of frontal headache and feeling fatigued since this morning. Denies dizziness, nausea, vomiting, chest pain, diaphoresis, abdominal pain. Patient reported that he was using his phone for 2 hours prior to bed, unsure that is a cause of his headache. denies fall or injury. Past medical history of hypertension, A. fib on Eliquis, hypercholesterolemia, diabetes, abnormal thyroid 09/01/20 20:13 09/01/20 20:15 Past History - Medical History Allergies/Adverse Reactions: Allergies Allergy/AdvReac Type Severity Reaction Status Date / Time No Known Allergies Allergy Verified 09/01/20 18:12 Home Medications: Ambulatory Orders Hydrochlorothiazide [Hctz -] 25 mg PO DAILY 04/26/12 Rosuvastatin Calcium [Crestor] 20 mg PO DAILY 04/26/12 Silodosin [Rapaflo] 1 cap PO DAILY 05/04/18 metFORMIN HCL [Metformin HCl] 1 tab PO BID 08/04/18 Apixaban [Eliquis] 5 mg PO BID #60 tablet 01/18/20 Dorzolamide/Timolol/Pf [Timolol 0.5%-Dorzolamide 2%] 1 drop OU BID 01/22/20 Albuterol Sulfate Inhaler - [Ventolin HFA Inhaler -] 2 puff IH Q4H PRN #1 inhaler 01/26/20 Budesonide/Formeterol Fumarate [SYMBICORT 160/4.5mcg -] 2 puff IH BID #1 inhaler 01/26/20 Anemia: No Asthma: No Cancer: No Cardiac Disorders: Yes (SOB, AFIB) CVA: No COPD: No CHF: No Dementia: No Diabetes: Yes GI Disorders: No Disorders: Yes (BPH) HTN: Yes Hypercholesterolemia: Yes Liver Disease: No Seizures: No Thyroid Disease: Yes (hyper) - Surgical History Abdominal Surgery: No Appendectomy: No Cardiac Surgery: No Cholecystectomy: No Lung Surgery: No Neurologic Surgery: No Orthopedic Surgery: Yes (LEFT CARPEL TUNNEL) - Immunization History Immunization Up to Date: No - Psycho-Social/Smoking History Smoking History: Never smoked Have you smoked in the past 12 months: No 'Breaking Loose' booklet given: 04/26/07 - Substance Abuse Hx (Audit-C & DAST Scrn) How often the patient has a drink containing alcohol: Never Score: In Men: 4 or > Positive; In Women: 3 or > Positive: 0 Screen Result (Pos requires Nsg. Audit-10AR): Negative In the last yr the pt used illegal drug/Rx for NonMed reason: No Score: Yes response is considered Positive: 0 Screen Result (Positive result requires Nsg. DAST-10): Negative Review of Systems - Review of Systems Able to Perform ROS?: Yes Is the patient limited Indian proficient: No *Physical Exam - Vital Signs Last Vital Signs Temp Pulse Resp BP Pulse Ox 98.3 F 82 16 159/105 H 100 09/01/20 18:13 09/01/20 18:13 09/01/20 18:13 09/01/20 18:13 09/01/20 18:13 - Physical Exam General Appearance: Yes: Appropriately Dressed HEENT: positive: Normal ENT Inspection Respiratory/Chest: positive: Lungs Clear, Normal Breath Sounds Cardiovascular: positive: Regular Rhythm, Regular Rate, Systolic Murmur. negative: Edema Extremity: positive: Normal Capillary Refill, Normal Inspection, Normal Range of Motion Integumentary: positive: Normal Color, Dry, Warm Neurologic: positive: silk presser II-XII NML intact, Fully Oriented, Alert, Normal Mood/Affect, Normal Response, Motor Strength 5/5 ED Treatment Course - LABORATORY CBC & Chemistry Diagram: 09/01/20 19:30 09/01/20 19:30 ED Progress Note - Progress Note Progress Note: 09/01/20 20:14 A: headache; hypertension P: cbc cmp troponin EKG: Sninus rhythm with 1st degree AV block incomplete RBB: 71 bpm Medical Decision Making - Medical Decision Making 09/01/20 21:04 + leukocytosis, Ct head negative will add chest xray and covid test 09/01/20 21:14 patient has a history of leukocytosis as per previous chart. 09/01/20 21:30 Covid pending. Patient reported he is feeling slightly better. Chest x-ray within normal limits will DC home with close PCP follow-up. Patient verbalized understanding. Strict return precautions were reviewed with patient Discharge - Discharge Information Problems reviewed: Yes Clinical Impression/Diagnosis: Hypertension Qualifiers: Hypertension type: essential hypertension Qualified Code(s): I10 - Essential (primary) hypertension Headache Qualifiers: Headache type: unspecified Headache chronicity pattern: acute headache Intractability: intractable Qualified Code(s): R51.9 - Headache, unspecified Condition: Improved Disposition: HOME - Follow up/Referral Referrals: Jens Fletcher MD [Primary Care Provider] - Call tomorrow - Patient Discharge Instructions Patient Printed Discharge Instructions: Tension Headache Additional Instructions: Please follow-up with your primary doctor as soon as possible return to the emergency room for any worsening symptoms - Post Discharge Activity
[2020-09-01 19:49] LABS: EOS % 1.5 % (0-4.5); HEMATOCRIT 43.7 % (35.4-49); HEMOGLOBIN 14.1 GM/dL (11.7-16.9); LYMPH % 15.4 % (8-40); MCH 26.6 pg (25.7-33.7); MCHC 32.3 g/dl (32.0-35.9); MEAN CELL VOLUME 82.3 fl (80-96); MEAN PLT VOLUME 8.3 fl (7.5-11.1); MONO % 7.2 % (3.8-10.2); NEUT % 74.9 % (42.8-82.8); PLATELET COUNT 234 K/MM3 (134-434); RBC 5.32 M/mm3 (4.00-5.60); RDW 14.8 % (11.9-15.9); WHITE BLOOD COUNT 12.3 K/mm3 (4.0-10.0)
[2020-09-01 20:05] LABS: CHLORIDE 102 mmol/L (98-107); POTASSIUM 3.8 mmol/L (3.5-5.1); SODIUM 139 mmol/L (136-145)
[2020-09-01 20:07] LABS: ALBUMIN 3.7 g/dl (3.4-5.0); ANION GAP 7 MMOL/L (8-16); BLOOD UREA NITROGEN 13.2 mg/dL (7-18); CALCIUM 9.2 mg/dL (8.5-10.1); CO2 30 mmol/L (21-32); GLUCOSE,RANDOM 132 mg/dL (74-106); MAGNESIUM 1.8 mg/dL (1.8-2.4)
[2020-09-01 20:10] LABS: CREATININE 1.1 mg/dL (0.55-1.3); SGPT/ALT 24 U/L (13-61)
[2020-09-01 20:12] LABS: BILIRUBIN,TOTAL 0.6 mg/dL (0.2-1); TOT PROT 7.1 g/dl (6.4-8.2)
[2020-09-01 20:13] LABS: ALK PHOS 53 U/L (45-117)
[2020-09-01] MEDS ORDERED: ACETAMINOPHEN 500 MG TABLET (FP) PO ONE (20:13)
[2020-09-01 20:15] LABS: SGOT/AST 15 U/L (15-37)
[2020-09-01 20:43] LABS: URINE APPEARANCE CLEAR; URINE BILIRUBIN NEGATIVE (NEGATIVE); URINE COLOR YELLOW; URINE GLUCOSE (UA) NEGATIVE (NEGATIVE); URINE KETONE NEGATIVE (NEGATIVE); URINE LEUK ESTERASE NEGATIVE (NEGATIVE); URINE NITRITE NEGATIVE (NEGATIVE); URINE PROTEIN NEGATIVE (NEGATIVE); URINE UROBILINOGEN 0.2 mg/dL (0.2-1.0)
[2020-09-01] MEDS ORDERED: ACETAMINOPHEN 500 MG TABLET (FP) ONE (20:46)
[2020-09-01 21:25] VITALS: BP 145/76; PULSE 86
--- NOTE | 2020-09-02 11:03 | EKG ---
Test Reason : Blood Pressure : / mmHG Vent. Rate : 071 BPM Atrial Rate : 071 BPM P-R Int : 228 ms QRS Dur : 106 ms QT Int : 366 ms P-R-T Axes : 078 -47 077 degrees QTc Int : 397 ms SINUS RHYTHM WITH 1ST DEGREE A-V BLOCK LEFT AXIS DEVIATION LEFT ATRIAL ENLARGEMENT INCOMPLETE RIGHT BUNDLE BRANCH BLOCK SEPTAL INFARCT , AGE UNDETERMINED ABNORMAL ECG Confirmed by MD IRISH, FREDERICK ([id number]) on 09/02/2020 11:03:38 AM Referred By: Confirmed By:FREDERICK COBURN MD
== END 2020-09-01 21:42 | disposition home or self-care (01) ==
LOC: JER 17:58
DX: R51.9 Headache, unspecified (principal); I10 Essential (primary) hypertension
CPT/HCPCS: 36415; 70450-TC; 71046-TC-FY; 80053; 81003; 83735; 84443; 84484; 85025; 93005; 93010; 99285-25; C9803; U0003

== ENCOUNTER 2020-12-30 02:17 | Emergency (ER) | payer OTHER, MEDICARE ==
[2020-12-30 03:03] VITALS: BP 122/68; PULSE 74; TEMP 98.3; BMI 31.6
[2020-12-30] MEDS ORDERED: DEXAMETHASONE SOD PHOSPHATE 10 MG/1 ML VIAL IM ONE (03:15)
[2020-12-30] MEDS ORDERED: DEXAMETHASONE SOD PHOSPHATE 10 MG/1 ML VIAL ONE (03:22)
== END 2020-12-30 04:40 | disposition home or self-care (01) ==
LOC: JER 02:17
PROC: 3E023GC Introduction of Other Therapeutic Substance into Muscle, Percutaneous Approach (ICD-10-PCS; principal; 2020-12-30)
DX: R21 Rash and other nonspecific skin eruption (principal)
CPT/HCPCS: 82962; 99284-25; J1100

== ENCOUNTER 2021-11-19 12:18 | Emergency (ER) | payer BC, MEDICARE ==
[2021-11-19 12:31] VITALS: BP 153/66; TEMP 97.1; BMI 32.1
[2021-11-19] MEDS ORDERED: predniSONE 20 MG TABLET (UD) PO ONE (13:11)
[2021-11-19] MEDS ORDERED: predniSONE 20 MG TABLET (UD) ONE (13:19)
[2021-11-19] MEDS: ALBUTEROL SO4 2.5/IPRATROPIUM 0.5 INH SOL 3 ML VIAL.NEB. NEB SCH ×4 (13:28→14:00)
[2021-11-19 15:01] VITALS: PULSE 62
[2021-11-20 13:07] LABS: SARS-CoV-2 NAA Not Detected (Not Detected)
== END 2021-11-19 15:01 | disposition home or self-care (01) ==
LOC: JER 12:18
PROC: 3E0F7GC Introduction of Other Therapeutic Substance into Respiratory Tract, Via Natural or Artificial Opening (ICD-10-PCS; principal; 2021-11-19)
DX: J06.9 Acute upper respiratory infection, unspecified (principal)
CPT/HCPCS: 71046-TC-FY; 87804; 87807; 99284-25; C9803; U0003; U0005

== ENCOUNTER 2021-12-13 11:18 | Observation (INO) | payer BC, MEDICARE ==
[2021-12-13] MEDS ORDERED: DEXAMETHASONE SOD PHOSPHATE 10 MG/1 ML VIAL IVPUSH ONE (12:20)
[2021-12-13] MEDS ORDERED: DEXAMETHASONE SOD PHOSPHATE 10 MG/1 ML VIAL ONE (12:38)
[2021-12-13] MEDS: ALBUTEROL SO4 2.5/IPRATROPIUM 0.5 INH SOL 3 ML VIAL.NEB. NEB SCH ×3 (12:50→13:42)
[2021-12-13 13:03] LABS: BASO % 0.6 % (0-2.0); EOS % 9.5 % (0-4.5); HEMATOCRIT 42.4 % (35.4-49); HEMOGLOBIN 14.2 GM/dL (11.7-16.9); LYMPH % 17.2 % (8-40); MCH 27.3 pg (25.7-33.7); MCHC 33.5 g/dl (32.0-35.9); MEAN CELL VOLUME 81.4 fl (80-96); MEAN PLT VOLUME 8.1 fl (7.5-11.1); MONO % 7.5 % (3.8-10.2); NEUT % 65.2 % (42.8-82.8); PLATELET COUNT 231 10^3/uL (134-434); RDW 14.3 % (11.9-15.9); WHITE BLOOD COUNT 10.1 K/mm3 (4.0-10.0)
[2021-12-13 13:25] LABS: CHLORIDE 105 mmol/L (98-107); SODIUM 141 mmol/L (136-145)
[2021-12-13 13:29] LABS: CALCIUM 9.4 mg/dL (8.5-10.1)
[2021-12-13 13:30] LABS: ALBUMIN 3.8 g/dl (3.4-5.0); ANION GAP 8 MMOL/L (8-16); BLOOD UREA NITROGEN 12.3 mg/dL (7-18); CO2 27 mmol/L (21-32); GLUCOSE,RANDOM 93 mg/dL (74-106)
[2021-12-13 13:33] LABS: CREATININE 0.8 mg/dL (0.55-1.3); SGOT/AST 13 U/L (15-37); SGPT/ALT 15 U/L (13-61)
[2021-12-13 13:35] LABS: BILIRUBIN,TOTAL 0.7 mg/dL (0.2-1)
[2021-12-13 13:36] LABS: ALK PHOS 48 U/L (45-117)
[2021-12-13] MEDS ORDERED: FAMOTIDINE 10 MG TABLET PO ONE (15:04)
[2021-12-13] MEDS ORDERED: FAMOTIDINE 20 MG TABLET ONE (15:16)
[2021-12-13] MEDS ORDERED: ALBUTEROL SO4 2.5/IPRATROPIUM 0.5 INH SOL 3 ML VIAL.NEB. NEB PRN (15:26)
[2021-12-13 20:23] VITALS: BMI 31.6
[2021-12-13] MEDS: ROSUVASTATIN CA 20 MG TABLET PO SCH (21:36)
[2021-12-13] MEDS: APIXABAN 5 MG TABLET PO SCH (21:36)
[2021-12-14] MEDS: amLODIPine BESYLATE 5 MG TABLET (FP) PO SCH (09:47)
[2021-12-14] MEDS: TAMSULOSIN HCL 0.4 MG CAP PO SCH (09:47)
[2021-12-14] MEDS: APIXABAN 5 MG TABLET PO SCH ×2 (09:47→22:08)
[2021-12-14] MEDS: HYDROCHLOROTHIAZIDE 25 MG TABLET (FP) PO SCH (09:48)
[2021-12-14] MEDS ORDERED: methylPREDNISolone 8 MG TABLET PO SCH ×2 (10:00)
[2021-12-14 10:36] LABS: BASO % 0.1 % (0-2.0); EOS % 1.5 % (0-4.5); HEMATOCRIT 43.1 % (35.4-49); HEMOGLOBIN 13.8 GM/dL (11.7-16.9); LYMPH % 10.7 % (8-40); MCH 26.3 pg (25.7-33.7); MCHC 31.9 g/dl (32.0-35.9); MEAN CELL VOLUME 82.2 fl (80-96); MEAN PLT VOLUME 8.5 fl (7.5-11.1); MONO % 6.2 % (3.8-10.2); NEUT % 81.5 % (42.8-82.8); PLATELET COUNT 278 10^3/uL (134-434); RBC 5.24 M/mm3 (4.00-5.60); RDW 13.9 % (11.9-15.9); WHITE BLOOD COUNT 13.3 K/mm3 (4.0-10.0)
[2021-12-14 10:50] LABS: CALCIUM 9.4 mg/dL (8.5-10.1)
[2021-12-14 10:51] LABS: ALBUMIN 3.9 g/dl (3.4-5.0); BLOOD UREA NITROGEN 16.7 mg/dL (7-18)
[2021-12-14 10:53] LABS: CREATININE 0.9 mg/dL (0.55-1.3); PHOSPHOROUS 3.7 mg/dL (2.5-4.9)
[2021-12-14 10:54] LABS: BILIRUBIN,TOTAL 0.6 mg/dL (0.2-1); TOT PROT 7.3 g/dl (6.4-8.2)
[2021-12-14] MEDS: TIOTROPIUM BROMIDE 2.5 MCG (SPIRIVA) RESPIMAT INHALER IH SCH (11:35)
[2021-12-14] MEDS: BUDESONIDE/FORMETEROL FUMARATE 160/4.5 mcg INHALER IH SCH ×2 (13:33→22:11)
[2021-12-14] MEDS ORDERED: PATIENT'S OWN MEDICATION (NON-FORMULARY) (Dorzolamide/Timolol/Pf [Dorzolamide-Timolol 2%-0 OP SCH (14:15)
[2021-12-14] MEDS: INSULIN SLIDING SCALE (NOVOLOG) 1 VIAL SQ SCH ×2 (16:49→22:16)
[2021-12-14] MEDS: ALBUTEROL SO4 2.5/IPRATROPIUM 0.5 INH SOL 3 ML VIAL.NEB. NEB SCH ×2 (16:49→20:07)
[2021-12-14] MEDS: ROSUVASTATIN CA 20 MG TABLET PO SCH (22:08)
[2021-12-14] MEDS: DORZOLAMIDE 2% HCL OPHTHALMIC SOLUTION 10 ML BOTTLE OU SCH (22:10)
[2021-12-14] MEDS: TIMOLOL 0.5% OPHTHALMIC SOL 5 ML BOTTLE OU SCH (22:10)
[2021-12-15] MEDS: INSULIN SLIDING SCALE (NOVOLOG) 1 VIAL SQ SCH ×3 (06:30→16:07)
[2021-12-15] MEDS: ALBUTEROL SO4 2.5/IPRATROPIUM 0.5 INH SOL 3 ML VIAL.NEB. NEB SCH ×3 (08:10→15:33)
[2021-12-15] MEDS: TAMSULOSIN HCL 0.4 MG CAP PO SCH (08:46)
[2021-12-15] MEDS: APIXABAN 5 MG TABLET PO SCH (09:46)
[2021-12-15] MEDS: HYDROCHLOROTHIAZIDE 25 MG TABLET (FP) PO SCH (09:46)
[2021-12-15] MEDS: amLODIPine BESYLATE 5 MG TABLET (FP) PO SCH (09:46)
[2021-12-15] MEDS: BUDESONIDE/FORMETEROL FUMARATE 160/4.5 mcg INHALER IH SCH (09:47)
[2021-12-15] MEDS: TIOTROPIUM BROMIDE 2.5 MCG (SPIRIVA) RESPIMAT INHALER IH SCH (09:47)
[2021-12-15] MEDS: DORZOLAMIDE 2% HCL OPHTHALMIC SOLUTION 10 ML BOTTLE OU SCH (09:48)
[2021-12-15] MEDS: TIMOLOL 0.5% OPHTHALMIC SOL 5 ML BOTTLE OU SCH (09:48)
[2021-12-15 09:50] LABS: BASO % 0.6 % (0-2.0); EOS % 2.1 % (0-4.5); HEMATOCRIT 42.8 % (35.4-49); HEMOGLOBIN 14.3 GM/dL (11.7-16.9); LYMPH % 16.8 % (8-40); MCHC 33.3 g/dl (32.0-35.9); MONO % 6.9 % (3.8-10.2); NEUT % 73.6 % (42.8-82.8); PLATELET COUNT 277 10^3/uL (134-434); RBC 5.29 M/mm3 (4.00-5.60); RDW 14.1 % (11.9-15.9); WHITE BLOOD COUNT 13.1 K/mm3 (4.0-10.0)
[2021-12-15] MEDS ORDERED: PATIENT'S OWN MEDICATION (NON-FORMULARY) (Alfuzosin Hcl [Alfuzosin Hcl Er] 10 MG Tab.Er.24 PO SCH (10:00)
[2021-12-15] MEDS ORDERED: DOCUSATE SODIUM 100 MG CAPSULE (FP) PO SCH (10:00)
[2021-12-15] MEDS ORDERED: methylPREDNISolone 4 MG TABLET PO SCH (10:00)
[2021-12-15] MEDS ORDERED: PANTOPRAZOLE 20 MG TABLET PO SCH (10:00)
[2021-12-15 10:56] LABS: CALCIUM 9.3 mg/dL (8.5-10.1)
[2021-12-15 10:57] LABS: MAGNESIUM 1.9 mg/dL (1.8-2.4)
[2021-12-15 11:01] LABS: PHOSPHOROUS 3.4 mg/dL (2.5-4.9)
[2021-12-15 14:13] VITALS: BP 130/76; PULSE 82; TEMP 98.8
== END 2021-12-15 18:20 | disposition home or self-care (01) ==
LOC: JER 11:18 → INTOOBSV 14:26 → UNDOADMOB 14:26 → JERBED 14:26 → J5S 18:40
PROVIDERS: ADMIT Internal Medicine; ATTEND Internal Medicine
PROC: 3E0F7GC Introduction of Other Therapeutic Substance into Respiratory Tract, Via Natural or Artificial Opening (ICD-10-PCS; principal; 2021-12-13)
PROC: 3E033GC Introduction of Other Therapeutic Substance into Peripheral Vein, Percutaneous Approach (ICD-10-PCS; 2021-12-13)
PROC: 3E013VG Introduction of Insulin into Subcutaneous Tissue, Percutaneous Approach (ICD-10-PCS; 2021-12-13)
DX: I48.91 Unspecified atrial fibrillation (principal); R73.03 Prediabetes; I10 Essential (primary) hypertension; J44.9 Chronic obstructive pulmonary disease, unspecified; E78.5 Hyperlipidemia, unspecified; N40.0 Benign prostatic hyperplasia without lower urinary tract symptoms; E05.90 Thyrotoxicosis, unspecified without thyrotoxic crisis or storm; Z87.891 Personal history of nicotine dependence; Z79.01 Long term (current) use of anticoagulants
CPT/HCPCS: 36415; 71045-TC-FY; 80048; 80053; 82550; 82962; 83735; 84100; 84484; 85025; 87804; 87807; 93005; 93010; 93306-TC; 94640; 96372; 96374; 99285-25; C9803; G0378; J1100; U0003; U0005

== ENCOUNTER 2022-05-29 19:48 | Observation (INO) | payer BC, MEDICARE ==
[2022-05-29 20:55] VITALS: BMI 33.5
[2022-05-29 23:12] LABS: BASO % 0.5 % (0-2.0); EOS % 3.3 % (0-4.5); HEMATOCRIT 42.2 % (35.4-49); HEMOGLOBIN 14.2 GM/dL (11.7-16.9); LYMPH % 18.8 % (8-40); MCH 27.7 pg (25.7-33.7); MCHC 33.7 g/dl (32.0-35.9); MEAN CELL VOLUME 82.2 fl (80-96); MONO % 8.2 % (3.8-10.2); NEUT % 69.2 % (42.8-82.8); PLATELET COUNT 238 10^3/uL (134-434); RBC 5.14 M/mm3 (4.00-5.60); RDW 14.4 % (11.9-15.9); WHITE BLOOD COUNT 10.2 K/mm3 (4.0-10.0)
[2022-05-29 23:13] LABS: VENOUS BASE EXCESS 3.5 mmol/L (-2-2); VENOUS PCO2 45.4 mmHg (38-52); VENOUS PH 7.419 (7.310-7.410)
[2022-05-29 23:16] LABS: INR 1.18 (0.83-1.09); PROTHROMBIN TIME (PATIENT) 13.6 SEC (9.7-13.0)
[2022-05-29 23:18] LABS: ACTIVATED PTT 39.4 SECONDS (25.2-36.5)
[2022-05-29 23:30] LABS: ALBUMIN 3.8 g/dl (3.4-5.0); BLOOD UREA NITROGEN 11.2 mg/dL (7-18); CALCIUM 9.1 mg/dL (8.5-10.1)
[2022-05-29 23:33] LABS: CREATININE 0.8 mg/dL (0.55-1.3)
[2022-05-29 23:35] LABS: BILIRUBIN,TOTAL 0.6 mg/dL (0.2-1); TOT PROT 7.2 g/dl (6.4-8.2)
[2022-05-30] MEDS ORDERED: PATIENT'S OWN MEDICATION (NON-FORMULARY) (Dorzolamide/Timolol/Pf [Dorzolamide-Timolol 2%-0 OP SCH (02:30)
[2022-05-30 02:49] VITALS: TEMP 98.2
[2022-05-30 03:23] LABS: URINE APPEARANCE CLEAR; URINE BILIRUBIN NEGATIVE (NEGATIVE); URINE COLOR YELLOW; URINE GLUCOSE (UA) NEGATIVE (NEGATIVE); URINE KETONE NEGATIVE (NEGATIVE); URINE LEUK ESTERASE NEGATIVE (NEGATIVE); URINE NITRITE NEGATIVE (NEGATIVE); URINE PROTEIN NEGATIVE (NEGATIVE); URINE UROBILINOGEN 0.2 mg/dL (0.2-1.0)
[2022-05-30] MEDS: INSULIN SLIDING SCALE (NOVOLOG) 1 VIAL SQ SCH ×2 (07:50→12:06)
[2022-05-30] MEDS ORDERED: TAMSULOSIN HCL 0.4 MG CAP PO SCH (09:00)
[2022-05-30] MEDS ORDERED: TAMSULOSIN HCL 0.4 MG CAP ONE (09:58)
[2022-05-30] MEDS ORDERED: amLODIPine BESYLATE 5 MG TABLET (FP) ONE (09:58)
[2022-05-30] MEDS ORDERED: APIXABAN 5 MG TABLET ONE (09:58)
[2022-05-30] MEDS ORDERED: HYDROCHLOROTHIAZIDE 12.5 MG CAPSULE (FP) PO SCH ×2 (10:00)
[2022-05-30] MEDS ORDERED: LISINOPRIL 20 MG TABLET PO SCH ×2 (10:00→22:00)
[2022-05-30] MEDS ORDERED: APIXABAN 5 MG TABLET PO SCH (10:00)
[2022-05-30] MEDS ORDERED: amLODIPine BESYLATE 5 MG TABLET (FP) PO SCH (10:00)
[2022-05-30 11:25] VITALS: BP 150/86; PULSE 58
[2022-05-30] MEDS ORDERED: ROSUVASTATIN CA 20 MG TABLET PO SCH (22:00)
== END 2022-05-30 16:30 | disposition home or self-care (01) ==
LOC: JER 19:48 → JERBED 05-30 00:53 → INTOOBSV 05-30 02:07 → OBSVTOIN 05-30 02:07
PROVIDERS: ADMIT Internal Medicine; ATTEND Internal Medicine
DX: R42 Dizziness and giddiness (principal); I10 Essential (primary) hypertension; E11.9 Type 2 diabetes mellitus without complications; N40.0 Benign prostatic hyperplasia without lower urinary tract symptoms; E78.00 Pure hypercholesterolemia, unspecified; H40.9 Unspecified glaucoma; I48.91 Unspecified atrial fibrillation; J44.9 Chronic obstructive pulmonary disease, unspecified; E66.9 Obesity, unspecified; Z68.33 Body mass index [BMI] 33.0-33.9, adult; Z29.8 Encounter for other specified prophylactic measures; Z79.01 Long term (current) use of anticoagulants; G47.33 Obstructive sleep apnea (adult) (pediatric); Z87.891 Personal history of nicotine dependence
CPT/HCPCS: 36415; 70450-TC; 71046-TC-FY; 80053; 81003; 82803; 82962; 83735; 84484; 85025; 85610; 85730; 87086; 93005; 93010; 93306-TC; 93880-TC; 99285-25; C9803-CS; G0378; U0003; U0005

== ENCOUNTER 2023-03-23 17:46 | Emergency (ER) | payer MEDICARE, OTHER ==
[2023-03-23 17:53] VITALS: BMI 34.2
[2023-03-23 19:41] LABS: VENOUS O2 SATURATION 89.3 % (70-80); VENOUS PCO2 40.3 mmHg (38-52); VENOUS PH 7.433 (7.310-7.410)
[2023-03-23 19:42] LABS: BASO % 0.6 % (0-2.0); EOS % 1.6 % (0-4.5); HEMATOCRIT 40.4 % (35.4-49); HEMOGLOBIN 13.8 GM/dL (11.7-16.9); LYMPH % 13.6 % (8-40); MCH 27.1 pg (25.7-33.7); MCHC 34.2 g/dl (32.0-35.9); MEAN CELL VOLUME 79.4 fl (80-96); MEAN PLT VOLUME 8.2 fl (7.5-11.1); MONO % 8.6 % (3.8-10.2); NEUT % 75.6 % (42.8-82.8); PLATELET COUNT 251 10^3/uL (134-434); RBC 5.09 M/mm3 (4.00-5.60); RDW 14.8 % (11.9-15.9); WHITE BLOOD COUNT 12.6 K/mm3 (4.0-10.0)
[2023-03-23 19:49] LABS: INR 1.22 (0.83-1.09); PROTHROMBIN TIME (PATIENT) 14.1 SEC (9.7-13.0)
[2023-03-23 19:53] LABS: ACTIVATED PTT 35.4 SECONDS (25.2-36.5)
[2023-03-23 19:57] VITALS: TEMP 98.2
[2023-03-23 20:07] LABS: POTASSIUM 3.2 mmol/L (3.5-5.1)
[2023-03-23 20:09] LABS: ALBUMIN 3.7 g/dl (3.4-5.0); CALCIUM 9.1 mg/dL (8.5-10.1)
[2023-03-23 20:10] LABS: BLOOD UREA NITROGEN 22.2 mg/dL (7-18)
[2023-03-23 20:13] LABS: CREATININE 1.1 mg/dL (0.55-1.3)
[2023-03-23 20:14] LABS: TOT PROT 6.9 g/dl (6.4-8.2)
[2023-03-23 20:16] LABS: BILIRUBIN,TOTAL 0.5 mg/dL (0.2-1)
[2023-03-23 20:18] LABS: N-TERMINAL BNP 36.8 pg/ml (5-450)
[2023-03-23 21:02] VITALS: BP 135/61; PULSE 65; RESP 18
== END 2023-03-24 00:23 | disposition home or self-care (01) ==
LOC: JER 17:46
DX: R00.2 Palpitations (principal); R06.02 Shortness of breath; Z20.822 Contact with and (suspected) exposure to COVID-19
CPT/HCPCS: 0241U-QW; 36415; 71046-TC-FY; 80053; 82803; 83735; 83880; 84443; 84484; 85025; 85610; 85730; 93005; 93010; 99285-25

== ENCOUNTER 2023-04-07 04:10 | Day surgery (SDC) | payer MEDICARE, OTHER ==
[2023-04-03 11:49] VITALS: BMI 33.5
[2023-04-07] MEDS ORDERED: LIDOCAINE HCL 1%, 10 MG/ML (10ML VIAL) MDV ONE (07:18)
[2023-04-07] MEDS ORDERED: LIDOCAINE HCL/PF 1% SDV 5ML VIAL ONE (07:23)
[2023-04-07] MEDS ORDERED: LIDOCAINE 1% P/F 10 MG/ML VIAL INF ONE ×4 (07:34→08:31)
[2023-04-07 10:20] VITALS: BP 138/74; PULSE 64; RESP 20; TEMP 97.5
== END 2023-04-07 10:30 | disposition home or self-care (01) ==
LOC: JASU-SURG 04:10
PROVIDERS: ATTEND Pain Medicine Pain Medicine
PROC: 01HY3MZ Insertion of Neurostimulator Lead into Peripheral Nerve, Percutaneous Approach (ICD-10-PCS; principal; 2023-04-07 08:00)
DX: G89.4 Chronic pain syndrome (principal); M25.561 Pain in right knee
CPT/HCPCS: 64555; C1778

== ENCOUNTER 2023-11-16 08:59 | Emergency (ER) | payer OTHER ==
[2023-11-16 09:12] VITALS: BMI 35.2
[2023-11-16 09:47] VITALS: TEMP 98.7
[2023-11-16] MEDS ORDERED: methylPREDNISolone NA SUCC 125 MG/2 ML VIAL IVPUSH ONE (10:12)
[2023-11-16] MEDS ORDERED: ALBUTEROL SO4 2.5/IPRATROPIUM 0.5 INH SOL 3 ML VIAL.NEB. NEB ONE (10:23)
[2023-11-16] MEDS ORDERED: methylPREDNISolone NA SUCC 125 MG/2 ML VIAL ONE (10:24)
[2023-11-16] MEDS: ALBUTEROL SO4 2.5/IPRATROPIUM 0.5 INH SOL 3 ML VIAL.NEB. NEB SCH (10:44)
[2023-11-16 10:54] LABS: VENOUS BASE EXCESS 3.8 mmol/L (-2-2); VENOUS O2 SATURATION 44.6 % (70-80); VENOUS PCO2 49.3 mmHg (38-52); VENOUS PH 7.397 (7.310-7.410)
[2023-11-16 11:07] LABS: BASO % 0.5 % (0-2.0); EOS % 5.7 % (0-4.5); HEMATOCRIT 44.5 % (35.4-49); HEMOGLOBIN 14.5 GM/dL (11.7-16.9); LYMPH % 14.3 % (8-40); MCHC 32.6 g/dl (32.0-35.9); MEAN CELL VOLUME 82.8 fl (80-96); MEAN PLT VOLUME 8.4 fl (7.5-11.1); MONO % 7.5 % (3.8-10.2); PLATELET COUNT 269 10^3/uL (134-434); RBC 5.38 M/mm3 (4.00-5.60); RDW 14.1 % (11.9-15.9); WHITE BLOOD COUNT 11.2 K/mm3 (4.0-10.0)
[2023-11-16 11:16] LABS: INR 1.43 (0.83-1.09); PROTHROMBIN TIME (PATIENT) 16.5 SEC (9.7-13.0)
[2023-11-16 11:19] LABS: ACTIVATED PTT 39.1 SECONDS (25.2-36.5)
[2023-11-16 11:24] LABS: POTASSIUM 3.8 mmol/L (3.5-5.1)
[2023-11-16 11:28] LABS: ALBUMIN 3.5 g/dl (3.4-5.0); BLOOD UREA NITROGEN 11.4 mg/dL (7-18)
[2023-11-16 11:33] LABS: BILIRUBIN,TOTAL 0.7 mg/dL (0.2-1); TOT PROT 7.1 g/dl (6.4-8.2)
[2023-11-16 11:36] LABS: N-TERMINAL BNP 47.1 pg/ml (5-450)
[2023-11-16] MEDS ORDERED: ALBUTEROL SO4 HFA INHALER IH PRN (14:54)
[2023-11-16 15:21] VITALS: BP 148/76; PULSE 79; RESP 19
== END 2023-11-16 15:36 | disposition home or self-care (01) ==
LOC: JER 08:59
PROC: 3E033GC Introduction of Other Therapeutic Substance into Peripheral Vein, Percutaneous Approach (ICD-10-PCS; principal; 2023-11-16)
PROC: 3E0F7GC Introduction of Other Therapeutic Substance into Respiratory Tract, Via Natural or Artificial Opening (ICD-10-PCS; 2023-11-16)
DX: R06.02 Shortness of breath (principal); R07.9 Chest pain, unspecified; R06.2 Wheezing; J44.9 Chronic obstructive pulmonary disease, unspecified; Z20.822 Contact with and (suspected) exposure to COVID-19
CPT/HCPCS: 0241U-QW; 36415; 71045-TC-FY; 80053; 82803; 83880; 84484; 85025; 85610; 85730; 93005; 93010; 99285-25